=== PATIENT | female | born 1970 | race Caucasian/White ===

== ENCOUNTER 2017-03-31 11:30 | Emergency (ER) | payer OTHER ==
[2017-03-31 11:46] VITALS: BP 139/76
--- NOTE | 2017-03-31 12:24 | EDM.PDOC ---
ED HPI GENERAL MEDICAL PROBLEM - General Chief Complaint: Head Injury Stated Complaint: HEAD INJURY 5 DAYS AGO, VOMITING SINCE Time Seen by Provider: 03/31/17 12:05 Source of Information: Reports: Patient History Limitations: Reports: No Limitations - History of Present Illness INITIAL COMMENTS - FREE TEXT/NARRATIVE: Patient is a 47-year-old female who states on March 27 she tripped hitting the left side of her head on a wooden door jam. There was no loss consciousness but approximately 5-10 minutes later patient developed dizziness, nausea/vomiting, and headache. States she's been vomiting off and on over the past few days. Pain is isolated to the left side of her head. She developed pain to the midline portion of her cervical spine increased with palpation and movement. She does have a history of migraines and has taken Zofran and Maxalt this morning with little relief. She still feels dizzy and also feels mildly nauseated. She is on Xarelto for blood clot to the left leg. Additional history includes vitamin D deficiency, hypertension, and depression. Left Headache Pain Score (Numeric/FACES): 8 - Related Data Allergies Allergy/AdvReac Type Severity Reaction Status Date / Time amoxicillin trihydrate Allergy Hives Verified 03/31/17 11:46 [From Augmentin] cephalexin Allergy Itching Verified 03/31/17 11:46 Penicillins Allergy Hives Verified 03/31/17 11:46 potassium clavulanate Allergy Hives Verified 03/31/17 11:46 [From Augmentin] Sulfa (Sulfonamide Allergy Hives Verified 03/31/17 11:46 Antibiotics) Home Meds: Home Meds Albuterol [Proair HFA] 2 puff INH Q4H PRN 04/16/14 [History] Cyclobenzaprine [Flexeril] 10 mg PO TID PRN 04/16/14 [History] LORazepam [Ativan] 0.5 mg PO TID PRN 04/16/14 [History] Omeprazole 20 mg PO DAILY 04/16/14 [History] Ondansetron HCl [Ondansetron] 8 mg PO BID PRN 04/16/14 [History] cloNIDine HCl [Clonidine HCl] 1 tab PO BID 04/16/14 [History] Citalopram Hydrobromide [Celexa] 40 mg PO DAILY 12/14/14 [History] Fluticasone Propionate [Flonase] 2 spray ZAK DAILY PRN 12/14/14 [History] Loratadine/Pseudoephedrine [Claritin-D 24 Hour Tablet] 1 tab PO DAILY 12/14/14 [ History] Lactobacillus Acidophilus [Probiotic] 1 cap PO DAILY PRN 01/02/15 [History] Rizatriptan [Maxalt] 10 mg PO ASDIRECTED PRN 01/02/15 [History] Triamcinolone Acetonide [Triamcinolone Acetonide 0.1% Crm] 1 dose TOP BID [History] Rivaroxaban [Xarelto] 20 mg PO DAILY 04/21/15 [History] Folic Acid/Mv,Fe,Min [Centrum Multivitamin] 1 tab PO DAILY 05/07/15 [History] Albuterol Sulfate 1 dose INH Q4HR PRN 06/19/15 [History] Meclizine [Antivert] 12.5 mg PO TID PRN 06/19/15 [History] Metoprolol Tartrate 25 mg PO DAILY 06/19/15 [History] Misoprostol [Cytotec] 200 mcg PO ASDIRECTED 06/19/15 [History] traMADol HCl [Tramadol HCl] 50 mg PO TID PRN 06/19/15 [History] Cholecalciferol (Vitamin D3) [Vitamin D3] 2 tab PO DAILY 03/31/17 [History] Past Medical History HEENT History: Reports: Allergic Rhinitis Cardiovascular History: Reports: Hypertension Other Cardiovascular History: chest pain, fluttering sensation, irregular heart rate, leg swelling, DVT Respiratory History: Reports: COPD Other Respiratory History: cough, pharyngitis - Severe Snoring Gastrointestinal History: Reports: GERD Other Gastrointestinal History: nausea vomitting Genitourinary History: Reports: Urinary Incontinence, Other (See Below) Other Genitourinary History: UTI, pelvic pain 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: , Other (See Below) Other OB/BYN History: breast lump, menorrhagia, hot flashes, postcoital bleeding Musculoskeletal History: Reports: Osteoarthritis Other Musculoskeletal History: restless leg syndrome, ac joint bone spurs, R biceps tendonitis, R shoulder pain, R rotator cuff tear, knee tear, patellar relalingment syndrome Neurological History: Reports: Headaches, Chronic, Migraines, Neuropathy, Peripheral, Vertigo Other Neuro History: fatigue, insomnia Psychiatric History: Reports: Anxiety, Depression, PTSD Endocrine/Metabolic History: Reports: Obesity/BMI 30+ Hematologic History: Reports: Anticoagulation Therapy, Other (See Below) Other Hematologic History: hypovitaminosis vitamin D, post thromotic syndrome Dermatologic History: Reports: Seborrheic Dermatitis Other Dermatologic History: ecezma, varicose veins, folliculitis - Past Surgical History HEENT Surgical History: Reports: Myringotomy w Tube(s) Female Surgical History: Reports: Oophorectomy, Tubal Ligation Musculoskeletal Surgical History: Reports: Arthroscopic Procedure, Shoulder Surgery Social & Family History - Tobacco Use Smoking Status *Q: Never Smoker Used Tobacco, but Quit: No Second Hand Smoke Exposure: Yes - Caffeine Use Caffeine Use: Reports: Soda - Alcohol Use Days Per Week of Alcohol Use: 0 Number of Drinks Per Day: 0 Total Drinks Per Week: 0 - Recreational Drug Use Recreational Drug Use: No Drug Use in Last 12 Months: No - Living Situation & Occupation Living situation: Reports: , with Family Occupation: Unemployed ED ROS GENERAL - Review of Systems Review Of Systems: See Below Constitutional: Reports: Decreased Appetite. Denies: Fever, Chills HEENT: Denies: Ear Discharge, Eye Pain, Vision Change Respiratory: Denies: Shortness of Breath, Cough, Sputum, Hemoptysis Cardiovascular: Denies: Dyspnea on Exertion, Palpitations, PND GI/Abdominal: Reports: Nausea, Vomiting. Denies: Abdominal Pain : Reports: No Symptoms Musculoskeletal: Reports: Neck Pain Neurological: Reports: Headache. Denies: Confusion, Dizziness, Numbness, Seizure, Syncope, Tingling, Difficulty Walking, Weakness ED EXAM, HEAD INJURY - Physical Exam Exam: See Below Exam Limited By: No Limitations General Appearance: Alert, WD/WN, Mild Distress Head: Facial Tenderness (left forehead). No: Scalp Abrasions, Scalp Ecchymosis , Scalp Hematoma, Scalp Tenderness, Facial Ecchymosis, Facial Swelling, Sinus Tenderness Nexus Criteria: Posterior, Midline Cervical Tenderness. No: Evidence of Intoxication, Altered Level of Consciousness, Focal Neurological Deficit, Painful Distraction Injuries Eyes: Bilateral Eye: EOMI, Normal Inspection, Nystagmus (none found), PERRL Ears: Normal External Exam, Hearing Grossly Normal Nose: Normal Inspection, Normal Mucousa Throat/Mouth: Normal Inspection, Normal Oropharynx, Normal Voice, No Airway Compromise Neck: Full Range of Motion, Normal Alignment, Normal Inspection, Tender Midline Respiratory: No Respiratory Distress, Lungs Clear, Normal Breath Sounds, No Accessory Muscle Use, Chest Non-Tender Cardiovascular: Normal Peripheral Pulses, Regular Rate, Rhythm GI/Abdominal Exam: Normal Bowel Sounds, Soft, Non-Tender, No Organomegaly, No Distention Back Exam: Normal Inspection, Full Range of Motion. 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 Uvula midline, no facial drip, no slurred speech, no weakness to upper/lower extremities. No sensory/motor deficits. ) Skin: Normal Color, Warm/Dry Course - Vital Signs Last Recorded V/S: Last Vital Signs Temp 97.7 F 03/31/17 11:42 Pulse 68 03/31/17 11:42 Resp 16 03/31/17 11:42 BP 139/76 03/31/17 11:42 Pulse Ox 98 03/31/17 11:42 - Orders/Labs/Meds Meds: Medications Discontinued Medications Generic Name Dose Route Start Last Admin Trade Name Garry PRIliana Reason Stop Dose Admin Diphenhydramine HCl 50 mg 03/31/17 12:55 03/31/17 13:12 Benadryl IM 03/31/17 12:56 50 mg ONETIME ONE Administration Haloperidol Lactate 5 mg 03/31/17 12:55 03/31/17 13:13 Haldol IM 03/31/17 12:56 5 mg ONETIME ONE Administration Ketorolac Tromethamine 60 mg 03/31/17 14:44 03/31/17 14:48 Toradol IM 03/31/17 14:45 60 mg ONETIME STA Administration Ketorolac Tromethamine Confirm 03/31/17 14:50 03/31/17 15:43 Toradol Administered 03/31/17 14:51 Not Given Dose 60 mg .ROUTE .STK-MED ONE Ondansetron HCl 4 mg 03/31/17 12:55 03/31/17 13:11 Zofran Odt PO 03/31/17 12:56 4 mg ONETIME ONE Administration - Re-Assessments/Exams Free Text/Narrative Re-Assessment/Exam: Ordered CT of the head and neck without contrast. Patient drove from [facility] and is arranging a ride. Once these studies have been completed will administer medications to resolve ANGEL. 03/31/17 13:00 patient has arranged a ride. Ordered Haldol, Zofran, and Benadryl. Will hold off on administering Toradol until CT results are present. 03/31/17 13:51 CT the cervical spine and head revealed no acute abnormalities. 1411 Reassessment, headache decreasing 01/24. Ordered toradol 60m IM. She is ready for discharge after administration of this medication. Departure - Departure Time of Disposition: 14:25 Disposition: Home, Self-Care 01 Condition: Good Clinical Impression: Head contusion Qualifiers: Encounter type: initial encounter Contusion of head detail: unspecified part of head Qualified Code(s): S00.93XA - Contusion of unspecified part of head, initial encounter Migraine Qualifiers: Migraine type: unspecified Status migrainosus presence: with status migrainosus Intractability: not intractable Qualified Code(s): G43.901 - Migraine, unspecified, not intractable, with status migrainosus - Discharge Information Instructions: Head Injury, Adult, [id number], Facial or Scalp Contusion, Easy -to-Read, Concussion, Adult, [id number] Referrals: Cara Miguel SECURITY TESTER [Primary Care Provider] - Forms: ED Department Discharge, ED Return to Work/School Form Additional Instructions: As discussed CT the cervical spine and head did not reveal any acute abnormalities. No driving today since receiving a sedative medication. Follow- up with PCP as needed in the next week if symptoms have not drastically improved. Can take ibuprofen and Tylenol as needed for pain in alternating fashion. Apply ice to affected area as needed. Suggest going home and finding a dark room to sleep with no distractions. Return to ED for any new or worsening symptoms.
[2017-03-31] MEDS ORDERED: Haloperidol Lactate 5 MG/ML SDV IM ONE (12:55)
[2017-03-31] MEDS ORDERED: diphenhydrAMINE 50 MG/ML SDV IM ONE (12:55)
[2017-03-31] MEDS ORDERED: Ondansetron 4 MG Tab.DIS PO ONE (12:55)
--- NOTE | 2017-03-31 13:31 | CT ---
Head CT Technique: Multiple axial sections through the brain were obtained. Intravenous contrast was not utilized. Comparison: No previous intracranial imaging. Findings: Ventricles along with basal cisterns and sulci over the convexities are within normal limits for the patient's age. No abnormal parenchymal densities are seen. No evidence of intracranial hemorrhage. No midline shift or mass effect is seen. Bone window settings were reviewed which shows no discrete calvarial abnormality. Visualized sinuses are clear. Impression: 1. No acute intracranial abnormality is identified on noncontrast head CT examination. Diagnostic code #1
--- NOTE | 2017-03-31 13:35 | CT ---
CT cervical spine Technique: Multiple axial sections were obtained from above C1 inferiorly to the mid T2 level. Reconstructed sagittal and coronal images were reviewed. Comparison: No previous cervical spine imaging. Findings: Vertebral body heights and disc spaces are maintained. Minimal spondylolisthesis is noted at C3-C4 compatible with degenerative apophyseal change which is worse on the right side. Posterior osteophytes are seen at C3-C4. Slight degenerative spurring is noted on the right side at C3-C4. Moderate right-sided neural foraminal stenosis is also noted at C3-C4. Mastoid sinuses and middle ear cavities are clear. Posterior skull base is intact. Vertebral bodies and posterior arches are intact. No fracture is seen. Other than the neural foraminal stenosis at C3-C4 on the right side, other neural foramina are patent. No bony central canal stenosis is seen. Scattered degenerative apophyseal change is seen throughout the cervical spine most prominent on the right side. Impression: 1. Degenerative change as described above. 2. No acute abnormality is identified on CT study of the cervical spine. Diagnostic code #2
[2017-03-31] MEDS ORDERED: Ketorolac 60 MG/2 ML SDV IM STA (14:44)
[2017-03-31] MEDS ORDERED: Ketorolac 60 MG/2 ML SDV ONE (14:50)
== END 2017-03-31 15:00 | disposition home or self-care (01) ==
LOC: JD.ED 11:30
DX: S00.93XA Contusion of unspecified part of head, initial encounter (principal); G43.901 Migraine, unspecified, not intractable, with status migrainosus; I10 Essential (primary) hypertension; J44.9 Chronic obstructive pulmonary disease, unspecified; K21.9 Gastro-esophageal reflux disease without esophagitis; M19.90 Unspecified osteoarthritis, unspecified site; F41.9 Anxiety disorder, unspecified; F32.9 Major depressive disorder, single episode, unspecified; E66.9 Obesity, unspecified; Z68.41 Body mass index [BMI] 40.0-44.9, adult; Z87.440 Personal history of urinary (tract) infections; Z96.22 Myringotomy tube(s) status; Z98.890 Other specified postprocedural states; Z79.899 Other long term (current) drug therapy; Z88.0 Allergy status to penicillin; Z88.1 Allergy status to other antibiotic agents; Z88.2 Allergy status to sulfonamides; W01.190A Fall on same level from slipping, tripping and stumbling with subsequent striking against furniture, initial encounter
CPT/HCPCS: 70450; 72125; 96372; 99284; A9270; J1200; J1630; J1885

== ENCOUNTER 2018-11-22 05:58 | Inpatient (IN) | payer MEDICAID ==
[~2018-11-22 05:58] MED LIST: Lactated Ringers 1,000 ML IV SCH; Lidocaine 1%/Sod Bicarbonate in NS 8.4% 1 ML Syringe IDERM PRN; Sodium Chloride 0.9% 10 ML Syringe FLUSH PRN
[2018-11-22] MEDS ORDERED: oxyCODONE ER 10 MG TAB.ER PO SCH (06:00)
[2018-11-22] MEDS ORDERED: Acetaminophen 325 MG Tab PO SCH (06:00)
[2018-11-22] MEDS ORDERED: Pregabalin 25 MG Cap PO SCH (06:00)
[2018-11-22] MEDS ORDERED: Iodine/Sodium Iodide 2% Tincture 30 ML Bottle ONE (06:21)
[2018-11-22] MEDS ORDERED: ceFAZolin 1 GM Vial ONE (06:21)
[2018-11-22] MEDS ORDERED: Triamcinolone Acetonide 40 MG/ML 1 ML MDV ONE (06:21)
[2018-11-22] MEDS ORDERED: Vancomycin 1 GM SDV ONE (06:21)
[2018-11-22] MEDS ORDERED: Morphine 8 MG, EPINEPHrine 0.3 MG, Cefuroxime 750 MG, Ketorolac 30 MG, Sodium Chloride ... ONE ×5 (06:45)
[2018-11-22] MEDS ORDERED: Cyclobenzaprine 10 MG Tab PO PRN (06:45)
[2018-11-22] MEDS ORDERED: fentaNYL 100 MCG/2 ML SDV ONE (06:46)
[2018-11-22] MEDS ORDERED: Midazolam 1 MG/ML 2 ML SDV ONE (06:46)
[2018-11-22] MEDS ORDERED: Propofol 200 MG/20 ML SDV ONE ×2 (06:46→08:13)
[2018-11-22] MEDS ORDERED: Ketamine 500 mg/10 ML MDV ONE (06:47)
[2018-11-22] MEDS ORDERED: Bisacodyl 5 MG Tab PO PRN (06:51)
[2018-11-22] MEDS ORDERED: Lidocaine 1% 4 ML ONE (07:11)
[2018-11-22] MEDS ORDERED: Dexamethasone 4 MG/ML SDV ONE (07:16)
[2018-11-22] MEDS ORDERED: Ropivacaine 0.5% 5 MG/ML 30 ML SDV ONE (07:46)
[2018-11-22] MEDS ORDERED: EPINEPHrine 1 MG/ML SDV ONE (07:46)
[2018-11-22] MEDS ORDERED: fentaNYL 100 MCG/2 ML SDV IVPUSH PRN (07:48)
[2018-11-22] MEDS ORDERED: diphenhydrAMINE 50 MG/ML SDV IVPUSH PRN (07:48)
[2018-11-22] MEDS ORDERED: Ketorolac 30 MG/ML SDV IVPUSH ONE (07:54)
[2018-11-22] MEDS ORDERED: HYDROmorphone 0.5 MG/0.5 ML Syringe IVPUSH PRN (07:54)
[2018-11-22] MEDS ORDERED: Ondansetron 4 MG/2 ML SDV IVPUSH PRN ×2 (07:54→09:00)
[2018-11-22] MEDS: Bupivacaine 0.25% 30 ML SDV ONE ×2 (08:04→08:30)
[2018-11-22] MEDS ORDERED: Lactated Ringers 1,000 ML ONE ×2 (08:21→08:22)
--- NOTE | 2018-11-22 08:34 | PCM.PREANE ---
Preanesthetic Assessment - Anesthesia/Transfusion/Family Hx Anesthesia History: Prior Anesthesia Without Reaction Family History of Anesthesia Reaction: No Transfusion History: No Prior Transfusion(s) - Review of Systems General: No Symptoms Pulmonary: No Symptoms (Controlled Asthma, no use of rescure inhaler. ) Cardiovascular: No Symptoms (Hypertension) Gastrointestinal: Other (GERD, controlled with medication. ) Neurological: No Symptoms Other: Reports: None (DVT in 2015), Depression, Anxiety - Physical Assessment NPO Status Date: 11/21/18 NPO Status Time: 23:30 O2 Sat by Pulse Oximetry: 97 Respiratory Rate: 16 Vital Signs: Last Vital Signs Temp 36.3 C 11/22/18 06:05 Pulse 69 11/22/18 06:05 Resp 16 11/22/18 06:05 BP 119/66 11/22/18 06:05 Pulse Ox 97 11/22/18 06:05 Height: 1.7 m Weight: 118.388 kg ASA Class: 2 Mental Status: Alert & Oriented x3 Airway Class: Mallampati = 1 Dentition: Reports: Missing Tooth/Teeth Thyro-Mental Finger Breadths: 3 Mouth Opening Finger Breadths: 3 ROM/Head Extension: Full Lungs: Clear to Auscultation, Normal Respiratory Effort Cardiovascular: Regular Rate, Regular Rhythm - Lab Values: Laboratory Last Values MRSA (PCR) Negative 11/17/18 09:50 - Allergies Allergies/Adverse Reactions: Allergies Allergy/AdvReac Type Severity Reaction Status Date / Time amoxicillin trihydrate Allergy Hives Verified 11/19/18 12:29 [From Augmentin] cephalexin Allergy Itching Verified 11/19/18 12:29 Penicillins Allergy Hives Verified 11/19/18 12:29 potassium clavulanate Allergy Hives Verified 11/19/18 12:29 [From Augmentin] Sulfa (Sulfonamide Allergy Hives Verified 11/19/18 12:29 Antibiotics) venlafaxine [From Effexor] Allergy Other Verified 11/19/18 12:29 - Anesthesia Plan Pre-Op Medication Ordered: Anxiolytic - Acknowledgements Anesthesia Type Planned: Spinal Pt an Appropriate Candidate for the Planned Anesthesia: Yes Alternatives and Risks of Anesthesia Discussed w Pt/Guardian: Yes Pt/Guardian Understands and Agrees with Anesthesia Plan: Yes PreAnesthesia Questionnaire HEENT History: Reports: Allergic Rhinitis, Other (See Below) Other HEENT History: eustachian tube dysfunction, pharyngitis, sore throat Cardiovascular History: Reports: Blood Clots/VTE/DVT, High Cholesterol, Hypertension Other Cardiovascular History: chest pain, fluttering sensation, irregular heart rate, leg swelling, DVT Respiratory History: Reports: Asthma, Bronchitis, Recurrent, COPD Other Respiratory History: cough, pharyngitis - Severe Snoring Gastrointestinal History: Reports: Chronic Diarrhea, GERD Other Gastrointestinal History: nausea vomiting Genitourinary History: Reports: Urinary Incontinence, UTI, Recurrent, Other ( See Below) Other Genitourinary History: UTI, pelvic pain 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, , Other (See Below) Other OB/BYN History: breast lump, menorrhagia, hot flashes, postcoital bleeding Musculoskeletal History: Reports: Osteoarthritis Other Musculoskeletal History: restless leg syndrome, ac joint bone spurs, R biceps tendonitis, R shoulder pain, R rotator cuff tear, knee tear, patellar relalingment syndrome, lumbar pain and radiculopathy, right bicep tendonitis, degneration of right lateral meniscus, right plantar fasciitis Neurological History: Reports: Headaches, Chronic, Migraines, Neuropathy, Peripheral, Vertigo Other Neuro History: fatigue, insomnia, loss of equilbrium Psychiatric History: Reports: Anxiety, Depression, PTSD, Suicide Attempt Endocrine/Metabolic History: Reports: Obesity/BMI 30+, Vitamin D Deficiency Hematologic History: Reports: Anemia, Anticoagulation Therapy, B12 Deficiency, Other (See Below) Other Hematologic History: hypovitaminosis vitamin D, post thromotic syndrome, bone marrow edema Immunologic History: Reports: None Oncologic (Cancer) History: Reports: None Dermatologic History: Reports: Eczema, Seborrheic Dermatitis Other Dermatologic History: ecezma, varicose veins, folliculitis, dermatitis, sweating, thrombophlebitis - Infectious Disease History Infectious Disease History: Reports: Chicken Pox - Past Surgical History Head Surgeries/Procedures: Reports: None HEENT Surgical History: Reports: Myringotomy w Tube(s), Oral Surgery Other HEENT Surgeries/Procedures: oral surgery with teeth extraction, ear pressure equalization tube Cardiovascular Surgical History: Reports: None Respiratory Surgical History: Reports: None GI Surgical History: Reports: None Female Surgical History: Reports: Oophorectomy, Tubal Ligation Other Female Surgeries/Procedures: L) oophrectomy, ablation Endocrine Surgical History: Reports: None Neurological Surgical History: Reports: None Musculoskeletal Surgical History: Reports: Arthroscopic Procedure, Shoulder Surgery Other Musculoskeletal Surgeries/Procedures:: right knee arhtroscopy, bilateral shoulder arthroscopy Oncologic Surgical History: Reports: Bone Marrow Transplant - SUBSTANCE USE Smoking Status *Q: Never Smoker Recreational Drug Use History: No - HOME MEDS Home Medications: Home Meds LORazepam [Ativan] 1 mg PO BID PRN 04/16/14 [History] Omeprazole 20 mg PO DAILY 04/16/14 [History] cloNIDine HCl [Clonidine HCl] 1 tab PO BID 04/16/14 [History] Fluticasone Propionate [Flonase] 1 spray ZAK BID PRN 12/14/14 [History] Metoprolol Succinate [Toprol XL] 25 mg PO DAILY 05/31/17 [History] Albuterol [Proventil Neb Soln] 1 dose NEB Q4H PRN 11/19/18 [History] Budesonide [Pulmicort] 1 dose INH BID PRN 11/19/18 [History] Cholecalciferol (Vitamin D3) [Vitamin D3] 4,000 unit PO DAILY 11/19/18 [History] Citalopram [Citalopram HBr] 20 mg PO DAILY 11/19/18 [History] DULoxetine HCl [Duloxetine HCl] 60 mg PO DAILY 11/19/18 [History] Prazosin HCl [Prazosin] 1 mg PO TID 11/19/18 [History] Prazosin HCl [Prazosin] 2 mg PO BEDTIME 11/19/18 [History] SUMAtriptan [Imitrex] 50 mg PO ASDIRECTED PRN 11/19/18 [History] Topiramate 50 mg PO BID 11/19/18 [History] Triamcinolone Acetonide [Triamcinolone Acetonide 0.1% Crm] 1 dose TOP BID [History] lamoTRIgine [Lamotrigine] 150 mg PO DAILY 11/19/18 [History] Acetaminophen/oxyCODONE [Percocet 325-5 MG] 1 - 2 tab PO Q4H PRN #60 tablet 04/04 [Rx] Cyclobenzaprine [Flexeril] 10 mg PO TID PRN #40 tablet 11/22/18 [Rx] Docusate Sodium [Colace] 100 mg PO BID cap 11/22/18 [Rx] Rivaroxaban [Xarelto] 10 mg PO DAILY #30 tablet 11/22/18 [Rx] - CURRENT (IN HOUSE) MEDS Current Meds: Current Medications Acetaminophen (Tylenol) 975 mg PO ONETIME [facility] Stop: 11/22/18 18:00 Last Admin: 11/22/18 06:36 Dose: 975 mg Bisacodyl (Dulcolax) 5 mg PO DAILY PRN PRN Reason: Constipation Cyclobenzaprine HCl (Flexeril) 10 mg PO TID PRN PRN Reason: Spasms Diphenhydramine HCl (Benadryl) 25 mg IVPUSH Q6H PRN PRN Reason: Pruritis Stop: 11/22/18 14:00 Docusate Sodium (Colace) 100 mg PO BID [place] Famotidine (Pepcid) 20 mg PO Q12H [place] Fentanyl (Sublimaze) 50 mcg IVPUSH Q5M PRN PRN Reason: Pain Stop: 11/22/18 12:00 Hydromorphone HCl (Dilaudid) 0.5 mg IVPUSH Q15M PRN PRN Reason: severe pain Stop: 11/22/18 12:00 Lactated Ringer's (Ringers, Lactated) 1,000 mls @ 125 mls/hr IV ASDIRECTED [facility] Stop: 11/22/18 23:00 Last Admin: 11/22/18 06:20 Dose: 125 mls/hr Cefazolin Sodium/Dextrose 2 gm (/ Premix) 50 mls @ 100 mls/hr IV Q8H [facility] Stop: 11/23/18 07:29 Ketorolac Tromethamine (Toradol) 15 mg IVPUSH Q6H PRN PRN Reason: Pain Lidocaine/Sodium Bicarbonate (Buffered Lidocaine 1% In Ns 8.4%) 0.25 ml IDERM ONETIME PRN PRN Reason: Prior to IV Start Stop: 11/22/18 18:00 Last Admin: 11/22/18 06:20 Dose: 0.25 ml Magnesium Hydroxide (Milk Of Magnesia) 30 ml PO BID PRN PRN Reason: Constipation Morphine Sulfate (Morphine) 2 mg IVPUSH Q2H PRN PRN Reason: Breakthrough Pain Naloxone HCl (Narcan) 0.1 mg IVPUSH Q5M PRN PRN Reason: Oversedation Ondansetron HCl (Zofran) 4 mg IVPUSH Q6H PRN PRN Reason: Nausea/Vomiting Ondansetron HCl (Zofran) 4 mg IVPUSH ONETIME PRN PRN Reason: Nausea/Vomiting Stop: 11/22/18 14:00 Oxycodone HCl (Oxycontin) 10 mg PO ONETIME [place] Stop: 11/22/18 18:00 Last Admin: 11/22/18 06:35 Dose: 10 mg Oxycodone/Acetaminophen (Percocet 325-5 Mg) 1 - 2 tab PO Q4H PRN PRN Reason: Pain Pregabalin (Lyrica) 50 mg PO ONETIME [place] Stop: 11/22/18 18:00 Last Admin: 11/22/18 06:35 Dose: 50 mg Senna (Senna) 8.6 mg PO BID PRN PRN Reason: Constipation Sodium Chloride (Saline Flush) 10 ml FLUSH ASDIRECTED PRN PRN Reason: Keep Vein Open Stop: 11/22/18 18:00 Discontinued Medications Bupivacaine HCl (Marcaine 0.25%) Confirm Administered Dose 30 ml .ROUTE .STK- MED ONE Stop: 11/22/18 06:22 Cefazolin Sodium (Ancef) Confirm Administered Dose 2 gm .ROUTE .STK-MED ONE Stop: 11/22/18 06:22 Morphine Sulfate 8 mg/Epinephrine HCl 0.3 mg/Cefuroxime Sodium 750 mg/Ketorolac Tromethamine 30 mg/Sodium Chloride 27.9 ml 0 mg .XX ONETIME ONE Stop: 11/22/18 06:46 Dexamethasone (Dexamethasone) Confirm Administered Dose 8 mg .ROUTE .STK-MED ONE Stop: 11/22/18 07:17 Epinephrine HCl (Adrenalin) Confirm Administered Dose 1 mg .ROUTE .STK-MED ONE Stop: 11/22/18 07:47 Fentanyl (Sublimaze) Confirm Administered Dose 100 mcg .ROUTE .STK-MED ONE Stop: 11/22/18 06:47 Lidocaine HCl (Xylocaine-Mpf 1%) Confirm Administered Dose 4 mls @ as directed .ROUTE .STK-MED ONE Stop: 11/22/18 07:12 Lactated Ringer's (Ringers, Lactated) Confirm Administered Dose 1,000 mls @ as directed .ROUTE .STK-MED ONE Stop: 11/22/18 08:22 Lactated Ringer's (Ringers, Lactated) Confirm Administered Dose 1,000 mls @ as directed .ROUTE .STK-MED ONE Stop: 11/22/18 08:23 Iodine (Iodine 2% Mild Tincture) Confirm Administered Dose 30 ml .ROUTE .STK- MED ONE Stop: 11/22/18 06:22 Ketamine HCl (Ketalar) Confirm Administered Dose 500 mg .ROUTE .STK-MED ONE Stop: 11/22/18 06:48 Ketorolac Tromethamine (Toradol) 30 mg IVPUSH ONETIME ONE Stop: 11/22/18 07:55 Midazolam HCl (Versed 1 Mg/Ml) Confirm Administered Dose 2 mg .ROUTE .STK-MED ONE Stop: 11/22/18 06:47 Propofol (Diprivan 20 Ml) Confirm Administered Dose 600 mg .ROUTE .STK-MED ONE Stop: 11/22/18 06:47 Propofol (Diprivan 20 Ml) Confirm Administered Dose 200 mg .ROUTE .STK-MED ONE Stop: 11/22/18 08:14 Ropivacaine (Naropin 0.5%) Confirm Administered Dose 30 ml .ROUTE .STK-MED ONE Stop: 11/22/18 07:47 Tranexamic Acid (Cyklokapron) Confirm Administered Dose 1,000 mg .ROUTE .STK- MED ONE Stop: 11/22/18 06:22 Triamcinolone Acetonide (Kenalog-40) Confirm Administered Dose 80 mg .ROUTE .STK -MED ONE Stop: 11/22/18 06:22 Vancomycin HCl (Vancomycin) Confirm Administered Dose 1 gm .ROUTE .STK-MED ONE Stop: 11/22/18 06:22
[2018-11-22] MEDS ORDERED: Budesonide 0.25 MG/2 ML Neb Susp INH PRN (08:37)
[2018-11-22] MEDS ORDERED: Albuterol 0.083% 2.5 MG/3 ML Neb Soln NEB PRN (08:37)
[2018-11-22] MEDS ORDERED: SUMAtriptan 50 MG Tab PO PRN (08:37)
[2018-11-22] MEDS ORDERED: LORazepam 1 MG Tab PO PRN (08:37)
[2018-11-22] MEDS ORDERED: Fluticasone Propionate Nasal Spray 16 GM Bottle NAS PRN (08:37)
--- NOTE | 2018-11-22 08:46 | PCM.POSTAN ---
POST ANESTHESIA ASSESSMENT - MENTAL STATUS Mental Status: Alert, Oriented - VITAL SIGNS Pulse Rate: 78 SaO2: 95 Resp Rate: 15 Blood Pressure: 117/63 Temperature: 36.6 C - RESPIRATORY Respiratory Status: Respiratory Rate WNL, Airway Patent, O2 Saturation Stable - CARDIOVASCULAR CV Status: Pulse Rate WNL, Blood Pressure Stable - GASTROINTESTINAL GI Status: No Symptoms - PAIN Pain Score: 0 - POST OP HYDRATION Hydration Status: Adequate & Stable
--- NOTE | 2018-11-22 08:52 | PCM.CONS ---
H&P History of Present Illness - General Date of Service: 11/22/18 Admit Problem/Dx: Admission Diagnosis/Problem Admission Diagnosis/Problem Osteoarthritis of knee Source of Information: Patient, Old Records, Provider, RN, RN Notes Reviewed History Limitations: Reports: No Limitations - History of Present Illness Initial Comments - Free Text/Narative: Kiel Chen is a 48 yo female patient of Dr. Fuentes who is post-operative day 0 of Right TKA with left knee steroid injection. Hospital medicine was consulted for post-operative medical care. At this time she is resting comfortably in bed. Pain is controlled. She denies any chest pain, shortness of breath, palpitations, nausea, or vomiting. She carries a history of: HTN, Headaches, Anxiety, GERD, HLD, Irregular HR, Edema, COPD, Recurrent Bronchitis, Urinary incontinence, recurrent UTIs, menorrhagia, osteoarthritis,0RLS, Peripheral neuropathy, Chronic diarrhea, PTSD, depression, Vitamin D deficiency, B12 deficiency, Anemia, eczema, DVT in 2014, Allergic rhinitis, Suicide attempt, varicose venins, Asthma. She was never a smoker. She is a full code. Her primary care provider is Cara Miguel NP. Right Knee Pain Score (Numeric/FACES): 8 - Related Data Allergies/Adverse Reactions: Allergies Allergy/AdvReac Type Severity Reaction Status Date / Time amoxicillin trihydrate Allergy Hives Verified 11/19/18 12:29 [From Augmentin] cephalexin Allergy Itching Verified 11/19/18 12:29 Penicillins Allergy Hives Verified 11/19/18 12:29 potassium clavulanate Allergy Hives Verified 11/19/18 12:29 [From Augmentin] Sulfa (Sulfonamide Allergy Hives Verified 11/19/18 12:29 Antibiotics) venlafaxine [From Effexor] Allergy Other Verified 11/19/18 12:29 Home Medications: Home Meds LORazepam [Ativan] 1 mg PO BID PRN 04/16/14 [History] Omeprazole 20 mg PO DAILY 04/16/14 [History] cloNIDine HCl [Clonidine HCl] 1 tab PO BID 04/16/14 [History] Fluticasone Propionate [Flonase] 1 spray ZAK BID PRN 12/14/14 [History] Metoprolol Succinate [Toprol XL] 25 mg PO DAILY 05/31/17 [History] Albuterol [Proventil Neb Soln] 1 dose NEB Q4H PRN 11/19/18 [History] Budesonide [Pulmicort] 1 dose INH BID PRN 11/19/18 [History] Cholecalciferol (Vitamin D3) [Vitamin D3] 6,000 unit PO DAILY 11/19/18 [History] Citalopram [Citalopram HBr] 20 mg PO DAILY 11/19/18 [History] DULoxetine HCl [Duloxetine HCl] 60 mg PO BEDTIME 11/19/18 [History] Prazosin HCl [Prazosin] 1 mg PO TID 11/19/18 [History] Prazosin HCl [Prazosin] 2 mg PO BEDTIME 11/19/18 [History] SUMAtriptan [Imitrex] 50 mg PO ASDIRECTED PRN 11/19/18 [History] Topiramate 50 mg PO BID 11/19/18 [History] Triamcinolone Acetonide [Triamcinolone Acetonide 0.1% Crm] 1 dose TOP BID PRN [History] lamoTRIgine [Lamotrigine] 150 mg PO DAILY 11/19/18 [History] Acetaminophen/oxyCODONE [Percocet 325-5 MG] 1 - 2 tab PO Q4H PRN #60 tablet 04/04 [Rx] Aspirin 81 mg PO DAILY 11/22/18 [History] Cyclobenzaprine [Flexeril] 10 mg PO TID PRN #40 tablet 11/22/18 [Rx] DULoxetine [Cymbalta] 30 mg PO BEDTIME 11/22/18 [History] Docusate Sodium [Colace] 100 mg PO BID cap 11/22/18 [Rx] Past Medical History HEENT History: Reports: Allergic Rhinitis, Other (See Below) Other HEENT History: eustachian tube dysfunction, pharyngitis, sore throat Cardiovascular History: Reports: Blood Clots/VTE/DVT, High Cholesterol, Hypertension Other Cardiovascular History: chest pain, fluttering sensation, irregular heart rate, leg swelling, DVT Respiratory History: Reports: Asthma, Bronchitis, Recurrent, COPD Other Respiratory History: cough, pharyngitis - Severe Snoring Gastrointestinal History: Reports: Chronic Diarrhea, GERD Other Gastrointestinal History: nausea vomiting Genitourinary History: Reports: Urinary Incontinence, UTI, Recurrent, Other ( See Below) Other Genitourinary History: UTI, pelvic pain 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: Endometrial Ablation, , Other (See Below) Other OB/BYN History: breast lump, menorrhagia, hot flashes, postcoital bleeding Musculoskeletal History: Reports: Osteoarthritis Other Musculoskeletal History: restless leg syndrome, ac joint bone spurs, R biceps tendonitis, R shoulder pain, R rotator cuff tear, knee tear, patellar relalingment syndrome, lumbar pain and radiculopathy, right bicep tendonitis, degneration of right lateral meniscus, right plantar fasciitis Neurological History: Reports: Headaches, Chronic, Migraines, Neuropathy, Peripheral, Vertigo Other Neuro History: fatigue, insomnia, loss of equilbrium Psychiatric History: Reports: Anxiety, Depression, PTSD, Suicide Attempt Endocrine/Metabolic History: Reports: Obesity/BMI 30+, Vitamin D Deficiency Hematologic History: Reports: Anemia, Anticoagulation Therapy, B12 Deficiency, Other (See Below) Other Hematologic History: hypovitaminosis vitamin D, post thromotic syndrome, bone marrow edema Immunologic History: Reports: None Oncologic (Cancer) History: Reports: None Dermatologic History: Reports: Eczema, Seborrheic Dermatitis Other Dermatologic History: ecezma, varicose veins, folliculitis, dermatitis, sweating, thrombophlebitis - Infectious Disease History Infectious Disease History: Reports: Chicken Pox - Past Surgical History Head Surgeries/Procedures: Reports: None HEENT Surgical History: Reports: Myringotomy w Tube(s), Oral Surgery Other HEENT Surgeries/Procedures: oral surgery with teeth extraction, ear pressure equalization tube Cardiovascular Surgical History: Reports: None Respiratory Surgical History: Reports: None GI Surgical History: Reports: None Female Surgical History: Reports: Oophorectomy, Tubal Ligation Other Female Surgeries/Procedures: L) oophrectomy, ablation Endocrine Surgical History: Reports: None Neurological Surgical History: Reports: None Musculoskeletal Surgical History: Reports: Arthroscopic Procedure, Shoulder Surgery Other Musculoskeletal Surgeries/Procedures:: right knee arhtroscopy, bilateral shoulder arthroscopy Oncologic Surgical History: Reports: Bone Marrow Transplant Social & Family History - Family History Family Medical History: Noncontributory - Tobacco Use Smoking Status *Q: Never Smoker - Caffeine Use Caffeine Use: Reports: Soda - Recreational Drug Use Recreational Drug Use: No - Living Situation & Occupation Living situation: Reports: , with Family Occupation: Unemployed H&P Review of Systems - Review of Systems: Review Of Systems: See Below General: Reports: No Symptoms. Denies: Fever, Chills, Weakness HEENT: Reports: No Symptoms. Denies: Headaches, Sore Throat Pulmonary: Reports: No Symptoms. Denies: Shortness of Breath, Wheezing, Pleuritic Chest Pain, Cough, Sputum Cardiovascular: Reports: No Symptoms. Denies: Chest Pain, Palpitations, Dyspnea on Exertion Gastrointestinal: Reports: No Symptoms. Denies: Abdominal Pain, Constipation, Diarrhea, Nausea, Vomiting Genitourinary: Reports: No Symptoms. Denies: Pain Musculoskeletal: Reports: Leg Pain Skin: Reports: No Symptoms. Denies: Cyanosis Psychiatric: Reports: No Symptoms. Denies: Confusion Neurological: Reports: No Symptoms Hematologic/Lymphatic: Reports: No Symptoms Immunologic: Reports: No Symptoms Exam - Exam Exam: See Below - Vital Signs Vital Signs: Last Vital Signs Temp 97.4 F 11/22/18 06:05 Pulse 69 11/22/18 06:05 Resp 16 11/22/18 08:34 BP 119/66 11/22/18 06:05 Pulse Ox 97 11/22/18 08:34 Weight: 261 lb - Exam Quality Assessment: DVT Prophylaxis General: Alert, Oriented, Cooperative. No: Mild Distress HEENT: Conjunctiva Clear, EACs Clear, EOMI, Hearing Intact, Mucosa Moist & [place] , Nares Patent, Posterior Pharynx Clear, PERRLA Neck: Supple, Trachea Midline Lungs: Clear to Auscultation, Normal Respiratory Effort Cardiovascular: Regular Rate, Regular Rhythm GI/Abdominal Exam: Normal Bowel Sounds, Soft, Non-Tender, No Distention, No Abnormal Bruit (Female) Exam: Deferred Rectal (Female) Exam: Deferred Back Exam: Normal Inspection, Full Range of Motion Extremities: No Pedal Edema, Normal Capillary Refill, Leg Pain, Limited Range of Motion, Other (Bandage in place on right leg. Bandage is dry and intact. Cooling pack in place. ) Peripheral Pulses: 2+: Radial (L), Radial (R), Dorsalis Pedis (L), Dorsalis Pedis (R) Skin: Warm, Dry, Intact Neurological: Cranial Nerves Intact (grossly ) Neuro Extensive - Mental Status: Alert, Oriented x3, Normal Mood/Affect Consult PN Assessment/Plan POD#: 0 Procedures: Procedures AIRWAY INHALATION TREATMENT (07/01/16) ANTITHROMBIN III ACTIVITY (01/21/15) ASSAY OF CK (CPK) (04/27/15) ASSAY OF FREE THYROXINE (05/12/18) ASSAY OF GONADOTROPIN (FSH) (02/23/17) ASSAY OF GONADOTROPIN (LH) (02/23/17) ASSAY OF HOMOCYSTINE (01/21/15) ASSAY OF IRON (05/14/15) ASSAY OF MAGNESIUM (05/18/14) ASSAY OF MYOGLOBIN (04/27/15) ASSAY OF NATRIURETIC PEPTIDE (07/11/14) ASSAY OF PREALBUMIN (11/17/18) ASSAY OF SERUM POTASSIUM (01/31/16) ASSAY OF TRANSFERRIN (05/14/15) ASSAY OF TROPONIN QUANT (04/21/15) ASSAY THYROID STIM HORMONE (05/12/18) C-REACTIVE PROTEIN (03/29/15) CHEST X-RAY 1 VIEW FRONTAL (07/11/14) CHEST X-RAY 2VW FRONTAL&LATL (06/25/16) CHORIONIC GONADOTROPIN ASSAY (03/21/15) CHORIONIC GONADOTROPIN TEST (02/23/17) CLOT INHIBIT PROT C ACTIVITY (01/21/15) CLOT INHIBIT PROT S FREE (01/21/15) COMP SCREEN MAMMOGRAM ADD-ON (12/31/15) COMPLETE CBC AUTOMATED (05/14/15) COMPLETE CBC W/AUTO DIFF WBC (11/17/18) COMPREHEN METABOLIC PANEL (11/17/18) COMPUTER DX MAMMOGRAM ADD-ON (12/25/14) CREATINE MB FRACTION (04/21/15) CT ABD & PELV W/CONTRAST (05/31/17) CT ANGIOGRAPHY CHEST (07/11/14) CT HEAD/BRAIN W/O DYE (02/18/18) CT NECK SPINE W/O DYE (03/31/17) CULTURE OTHR SPECIMN AEROBIC (08/03/18) ECG MONIT/REPRT UP TO 48 HRS (07/17/14) ECG MONIT/REPRT UP TO 48 HRS (07/17/14) ELECTROCARDIOGRAM TRACING (04/21/15) EMERGENCY DEPT VISIT (11/26/17) EMERGENCY DEPT VISIT (05/31/17) EMERGENCY DEPT VISIT (07/06/16) EMERGENCY DEPT VISIT (07/11/15) EMERGENCY DEPT VISIT (05/07/15) EMERGENCY DEPT VISIT (04/21/15) EMERGENCY DEPT VISIT (03/29/15) EMERGENCY DEPT VISIT (03/04/15) EMERGENCY DEPT VISIT (07/11/14) EMERGENCY DEPT VISIT (05/14/14) EVALUATE PT USE OF INHALER (07/01/16) EXTREMITY STUDY (04/18/16) EXTREMITY STUDY (03/27/15) EXTREMITY STUDY (03/04/15) F2 GENE (01/21/15) F5 GENE (01/21/15) FIBRIN DEGRADATION QUANT (04/21/15) GLYCOSYLATED HEMOGLOBIN TEST (01/10/16) HYDRATE IV INFUSION ADD-ON (11/26/17) HYDRATION IV INFUSION INIT (07/11/14) HYSTEROSCOPY BIOPSY (06/20/15) INSERT BLADDER CATHETER (12/14/14) KNEE ARTHROSCOPY/SURGERY (07/19/15) KNEE ARTHROSCOPY/SURGERY (07/19/15) LAPAROSCOPY EXCISE LESIONS (06/20/15) LIPID PANEL (11/05/17) METABOLIC PANEL TOTAL CA (04/27/15) MICROBE SUSCEPTIBLE NIURKA (04/11/16) MR-STAPH DNA AMP PROBE (06/18/16) MRI JNT OF LWR EXTRE W/O DYE (05/09/16) MRI JOINT UPR EXTREM W/O DYE (06/17/16) PROTHROMBIN TIME (11/17/18) PT EVAL LOW COMPLEX 20 MIN (05/15/17) REPAIR OF BICEPS TENDON (07/01/16) REPAIR ROTATOR CUFF CHRONIC (07/01/16) ROUTINE VENIPUNCTURE (05/31/17) SHOULDER ARTHROSCOPY/SURGERY (07/01/16) SHOULDER ARTHROSCOPY/SURGERY (07/01/16) SHOULDER ARTHROSCOPY/SURGERY (07/01/16) SHOULDER ARTHROSCOPY/SURGERY (01/02/15) THER/PROPH/DIAG INJ IV PUSH (11/26/17) THER/PROPH/DIAG INJ SC/IM (11/26/17) THERAPEUTIC EXERCISES (06/03/17) THROMBOPLASTIN TIME PARTIAL (11/17/18) TISSUE EXAM BY PATHOLOGIST (06/20/15) TRANSVAGINAL US NON-OB (03/10/17) TX/PRO/DX INJ NEW DRUG ADDON (11/26/17) TX/PRO/DX INJ SAME DRUG COACH (12/14/14) ULTRASOUND BREAST COMPLETE (12/29/14) ULTRASOUND THERAPY (06/03/17) UR ALBUMIN SEMIQUANTITATIVE (01/10/16) URINALYSIS AUTO W/SCOPE (03/29/15) URINE BACTERIA CULTURE (04/11/16) URINE CULTURE/COLONY COUNT (06/25/16) URINE TEST (07/19/15) US EXAM PELVIC COMPLETE (12/14/14) VITAMIN B-12 (11/05/17) VITAMIN D 25 HYDROXY (11/05/17) X-RAY EXAM CHEST 2 VIEWS (11/17/18) X-RAY EXAM HIP UNI 2-3 VIEWS (10/14/18) X-RAY EXAM KNEE 4 OR MORE (10/14/18) X-RAY EXAM L-S SPINE 2/3 VWS (02/03/18) X-RAY EXAM OF ANKLE (01/05/17) X-RAY EXAM OF FOOT (11/04/17) X-RAY EXAM OF KNEE 1 OR 2 (02/25/18) X-RAY EXAM OF KNEE 3 (05/23/16) X-RAY EXAM OF LOWER LEG (07/11/15) X-RAY EXAM OF SHOULDER (04/16/16) X-RAY EXAM OF SHOULDER (12/29/13) X-RAY EXAM OF SKULL (06/17/16) X-RAY EXAM OF WRIST (03/19/17) (1) S/P total knee arthroplasty SNOMED Code(s): 2259628276215, 366221260, 4771758097651 Code(s): Z96.659 - PRESENCE OF UNSPECIFIED ARTIFICIAL KNEE JOINT Priority: High Current Visit: Yes Qualifiers: Laterality: right Qualified Code(s): Z96.651 - Presence of right artificial knee joint (2) Osteoarthritis SNOMED Code(s): 194022979 Code(s): M19.90 - UNSPECIFIED OSTEOARTHRITIS, UNSPECIFIED SITE Priority: High Current Visit: Yes Qualifiers: Osteoarthritis location: knee Osteoarthritis type: primary Laterality: bilateral Qualified Code(s): M17.0 - Bilateral primary osteoarthritis of knee (3) History of deep venous thrombosis or pulmonary embolus SNOMED Code(s): 957075270 Code(s): AXD4650 - Priority: Medium Current Visit: No (4) Allergic rhinitis SNOMED Code(s): 40929167 Code(s): J30.9 - ALLERGIC RHINITIS, UNSPECIFIED Priority: Low Current Visit: No Qualifiers: Allergic rhinitis trigger: unspecified Allergic rhinitis seasonality: seasonal Qualified Code(s): J30.2 - Other seasonal allergic rhinitis (5) HLD (hyperlipidemia) SNOMED Code(s): 17334731 Code(s): E78.5 - HYPERLIPIDEMIA, UNSPECIFIED Priority: Low Current Visit : No Qualifiers: Hyperlipidemia type: unspecified Qualified Code(s): E78.5 - Hyperlipidemia , unspecified (6) HTN (hypertension) SNOMED Code(s): 65533152 Code(s): I10 - ESSENTIAL (PRIMARY) HYPERTENSION Priority: Medium Current Visit: No Qualifiers: Hypertension type: unspecified Qualified Code(s): I10 - Essential (primary ) hypertension (7) Asthma SNOMED Code(s): 743498556 Code(s): J45.909 - UNSPECIFIED ASTHMA, UNCOMPLICATED Priority: Medium Current Visit: No Qualifiers: Asthma severity: unspecified severity Asthma persistence: unspecified Asthma complication type: unspecified Qualified Code(s): J45.909 - Unspecified asthma, uncomplicated (8) COPD (chronic obstructive pulmonary disease) SNOMED Code(s): 07451698 Code(s): J44.9 - CHRONIC OBSTRUCTIVE PULMONARY DISEASE, UNSPECIFIED Priority: Medium Current Visit: No Qualifiers: COPD type: unspecified COPD Qualified Code(s): J44.9 - Chronic obstructive pulmonary disease, unspecified (9) GERD (gastroesophageal reflux disease) SNOMED Code(s): 793610330 Code(s): K21.9 - GASTRO-ESOPHAGEAL REFLUX DISEASE WITHOUT ESOPHAGITIS Priority: Low Current Visit: No Qualifiers: Esophagitis presence: esophagitis presence not specified Qualified Code(s) : K21.9 - Gastro-esophageal reflux disease without esophagitis (10) Chronic diarrhea SNOMED Code(s): 478892893 Code(s): K52.9 - NONINFECTIVE GASTROENTERITIS AND COLITIS, UNSPECIFIED Priority: Low Current Visit: No (11) Urinary incontinence SNOMED Code(s): 600197369 Code(s): R32 - UNSPECIFIED URINARY INCONTINENCE Priority: Low Current Visit: No Qualifiers: Urinary Incontinence type: unspecified incontinence Qualified Code(s): R32 - Unspecified urinary incontinence (12) RLS (restless legs syndrome) SNOMED Code(s): 41628488 Code(s): G25.81 - RESTLESS LEGS SYNDROME Priority: Low Current Visit: No (13) Chronic headache SNOMED Code(s): 682702204 Code(s): R51 - HEADACHE Priority: Low Current Visit: No Qualifiers: Headache type: unspecified Intractability: intractable Qualified Code(s) : R51 - Headache (14) Peripheral neuropathy SNOMED Code(s): 252233995 Code(s): G62.9 - POLYNEUROPATHY, UNSPECIFIED Priority: Medium Current Visit: No Qualifiers: Peripheral neuropathy type: polyneuropathy, unspecified Qualified Code(s): G62.9 - Polyneuropathy, unspecified (15) PTSD (post-traumatic stress disorder) SNOMED Code(s): 17019334 Code(s): F43.10 - POST-TRAUMATIC STRESS DISORDER, UNSPECIFIED Priority: Medium Current Visit: No (16) Anxiety SNOMED Code(s): 78112753 Code(s): F41.9 - ANXIETY DISORDER, UNSPECIFIED Priority: Low Current Visit: No (17) Eczema SNOMED Code(s): 03964700 Code(s): L30.9 - DERMATITIS, UNSPECIFIED Priority: Low Current Visit: No Qualifiers: Eczema type: unspecified Qualified Code(s): L30.9 - Dermatitis, unspecified (18) History of suicide attempt SNOMED Code(s): 495559939, 624114391 Code(s): Z91.5 - PERSONAL HISTORY OF SELF-HARM Priority: Low Current Visit: No (19) Anemia SNOMED Code(s): 054759329 Code(s): D64.9 - ANEMIA, UNSPECIFIED Priority: Medium Current Visit: No Qualifiers: Anemia type: unspecified type Qualified Code(s): D64.9 - Anemia, unspecified (20) Depression SNOMED Code(s): 41867721 Code(s): F32.9 - MAJOR DEPRESSIVE DISORDER, SINGLE EPISODE, UNSPECIFIED Priority: Low Current Visit: No Qualifiers: Depression Type: other depression Qualified Code(s): F32.89 - Other specified depressive episodes Problem List Initiated/Reviewed/Updated: Yes Plan: I/P: Acute: S/P right total knee arthroplasty - post-operative day 0 -DVT prophylaxis and pain management per primary care team -PT/OT -IS/RT -Monitor oxygen saturation -Titrate oxygen as needed -Home medications reviewed -Vital signs stable -Monitor labs -Pre-operative Hgb was 12.3 -Pre-operative GFR was 59 Osteoarthritis of bilateral knees -Pain management per primary care team S/P cortisone injection of left knee -Management per primary team Chronic: HTN Headaches Anxiety GERD HLD Irregular HR Edema COPD Recurrent Bronchitis Urinary incontinence Recurrent UTIs Menorrhagia Osteoarthritis, RLS Peripheral neuropathy Chronic diarrhea PTSD Depression Vitamin D deficiency B12 deficiency Anemia Eczema DVT in 2014 Allergic rhinitis Hx/o Suicide attempt Varicose venins Asthma. Plan: CM for discharge planning GI prophylaxis Home medications as indicated Other orders as listed above Routine AM labs She is a full code. Her PCP is Cara Miguel NP Thank you for allowing us to participate in the care of this patient!! Requesting Provider: Dr. Fuentes Date Consult Requested: 11/22/18 Reason for Consult: Post-operative medical management Patient History Reviewed: Yes Time Spent (in minutes): 40
[2018-11-22] MEDS ORDERED: Morphine 2 MG/ML Syringe IVPUSH PRN (09:00)
[2018-11-22] MEDS ORDERED: Sennosides 8.6 MG Tab PO PRN (09:00)
[2018-11-22] MEDS ORDERED: Naloxone 0.4 MG/ML SDV IVPUSH PRN (09:00)
[2018-11-22] MEDS ORDERED: Triamcinolone Acetonide 0.1% Crm 15 GM Tube TOP SCH (09:00)
--- NOTE | 2018-11-22 09:21 | PCM.SN ---
- Free Text/Narrative Note: Right selective femoral nerve block at the adductor canal for post-procedure pain control Time Out: 900 Start: 900 End: 909 Chart reviewed. Consent signed. Questions answered. Appropriate monitors applied. Time out performed. Right mid-shaft femur evaluated with ultrasound. Scanning medially femur, I was able to identify the femoral artery in the adductor canal. The saphenous nerve was lateral to the artery. The skin was prepped lateral to the ultrasound probe with chlorahexadine. The 21ga 4 insulated block needle was inserted under direct ultrasound guidance into the adductor canal. 20mL of 0.5% ropivacaine with 1:200,000 epinephrine was injected cirmcumferentially about the nerve with intermittent negative aspiration every 5mL. Patient tolerated the procedure well. See pictures on progress note and vital signs on nurses notes. Block completed postoperatively. Leia Sanchez EVP MANAGING DIRECTOR
[2018-11-22] MEDS ORDERED: Magnesium Hydroxide 400 MG/5 ML Susp 30 ML Cup PO PRN (09:30)
--- NOTE | 2018-11-22 09:42 | CR ---
Right knee: Two views of the right knee were obtained. Comparison: Previous right knee study of 10/14/18. Knee prosthesis is seen. Components are aligned. Soft tissue air is noted from the surgical procedure. Underlying bony structures are intact. Impression: 1. Satisfactory postop radiographic appearance of recently placed right knee prosthesis. Diagnostic code #2
[2018-11-22] MEDS: Famotidine 20 MG Tab PO SCH ×2 (09:54→18:00)
[2018-11-22] MEDS: Ketorolac 15 MG/ML SDV IVPUSH PRN ×2 (12:08→21:37)
[2018-11-22] MEDS: Pantoprazole 40 MG Tab.CR PO SCH (12:11)
[2018-11-22] MEDS: Acetaminophen/oxyCODONE 325-5 MG Tab PO PRN ×3 (13:22→21:37)
[2018-11-22] MEDS: ceFAZolin 2 GM in Premix Bag 1 BAG IV SCH ×2 (14:55→23:11)
[2018-11-22] MEDS ORDERED: DULoxetine 30 MG Cap PO SCH ×2 (21:00)
[2018-11-22] MEDS ORDERED: Prazosin 1 MG Cap PO SCH (21:00)
[2018-11-22] MEDS: Topiramate 25 MG Tab PO SCH (21:30)
[2018-11-22] MEDS: Docusate Sodium 100 MG Cap PO SCH (21:30)
[2018-11-22] MEDS: cloNIDine 0.1 MG Tab PO SCH (21:32)
[2018-11-23] MEDS: Acetaminophen/oxyCODONE 325-5 MG Tab PO PRN (04:13)
[2018-11-23] MEDS: Famotidine 20 MG Tab PO SCH (06:57)
[2018-11-23] MEDS: ceFAZolin 2 GM in Premix Bag 1 BAG IV SCH (06:57)
[2018-11-23] MEDS ORDERED: Prazosin 1 MG Cap PO SCH (07:00)
--- NOTE | 2018-11-23 07:15 | PCM.CONSN ---
- General Info Date of Service: 11/23/18 Admission Dx/Problem (Free Text): Admission Diagnosis/Problem Admission Diagnosis/Problem Osteoarthritis of knee Subjective Update: In to see Kiel. She is sitting up in the chair and has just finished up working with PT. OT saw her earlier in the day. She has been doing well. No concerns from patient or family. She will be cleared for discharge. Functional Status: Reports: Pain Controlled, Tolerating Diet, Ambulating, Urinating. Denies: New Symptoms - Review of Systems General: Reports: No Symptoms. Denies: Fever, Weakness, Fatigue, Malaise, Chills HEENT: Reports: No Symptoms. Denies: Headaches, Sore Throat Pulmonary: Reports: No Symptoms. Denies: Shortness of Breath, Pleuritic Chest Pain, Cough, Sputum, Wheezing Cardiovascular: Reports: No Symptoms. Denies: Chest Pain, Palpitations, Dyspnea on Exertion, Edema, Lightheadedness Gastrointestinal: Reports: No Symptoms. Denies: Abdominal Pain, Constipation, Diarrhea, Nausea, Vomiting Genitourinary: Reports: No Symptoms. Denies: Pain Musculoskeletal: Reports: Leg Pain Skin: Reports: No Symptoms. Denies: Cyanosis Neurological: Reports: No Symptoms. Denies: Confusion Psychiatric: Reports: No Symptoms - Patient Data Vitals - Most Recent: Last Vital Signs Temp 98.6 F 11/23/18 04:06 Pulse 80 11/23/18 04:06 Resp 16 11/23/18 04:06 BP 126/50 L 11/23/18 04:06 Pulse Ox 92 L 11/23/18 04:06 Weight - Most Recent: 268 lb 1.6 oz I&O - Last 24 Hours: Intake & Output 11/22/18 11/23/18 11/23/18 22:59 06:59 14:59 Intake Total 1430 1250 Output Total 1200 1800 Balance 230 -550 Lab Results Last 24 Hours: Laboratory Results - last 24 hr 11/23/18 11/23/18 Range/Units 06:00 06:00 WBC 12.86 H (3.98-10.04) K/mm3 RBC 3.70 L (3.98-5.22) M/mm3 Hgb 10.3 L (11.2-15.7) gm/L Hct 32.5 L (34.1-44.9) % MCV 87.8 (79.4-94.8) fl MCH 27.8 (25.6-32.2) pg MCHC 31.7 L (32.2-35.5) g/dl RDW Std Deviation 46.6 H (36.4-46.3) fL Plt Count 316 (182-369) K/mm3 MPV 9.6 (9.4-12.3) fl Sodium 141 (136-145) mEq/L Potassium 3.9 (3.5-5.1) mEq/L Chloride 105 (98-107) mEq/L Carbon Dioxide 27 (21-32) mEq/L Anion Gap 12.9 (5-15) BUN 13 (7-18) mg/dL Creatinine 0.8 (0.55-1.02) mg/dL Est Cr Clr Drug Dosing 84.54 mL/min Estimated GFR (MDRD) > 60 (>60) mL/min BUN/Creatinine Ratio 16.3 (14-18) Glucose 124 H (74-106) mg/dL Calcium 8.7 (8.5-10.1) mg/dL Total Bilirubin 0.3 (0.2-1.0) mg/dL AST 17 (15-37) U/L ALT 21 (14-59) U/L Alkaline Phosphatase 92 (46-116) U/L Total Protein 6.6 (6.4-8.2) g/dl Albumin 3.0 L (3.4-5.0) g/dl Globulin 3.6 gm/dL Albumin/Globulin Ratio 0.8 L (1-2) Med Orders - Current: Current Medications Albuterol (Proventil Neb Soln) 2.5 mg NEB Q4H PRN PRN Reason: asthma Bisacodyl (Dulcolax) 5 mg PO DAILY PRN PRN Reason: Constipation Budesonide (Pulmicort) 0.25 mg INH BID PRN PRN Reason: ashtma Cholecalciferol (Vitamin D3) 5,000 unit PO DAILY [facility] Citalopram Hydrobromide (Celexa) 20 mg PO DAILY [facility] Clonidine HCl (Catapres) 0.1 mg PO BID [facility] Last Admin: 11/22/18 21:32 Dose: 0.1 mg Cyclobenzaprine HCl (Flexeril) 10 mg PO TID PRN PRN Reason: Spasms Last Admin: 11/22/18 14:55 Dose: 10 mg Docusate Sodium (Colace) 100 mg PO BID [facility] Last Admin: 11/22/18 21:30 Dose: 100 mg Duloxetine HCl (Cymbalta) 60 mg PO BEDTIME [facility] Last Admin: 11/22/18 21:30 Dose: 60 mg Duloxetine HCl (Cymbalta) 30 mg PO BEDTIME [facility] Last Admin: 11/22/18 21:30 Dose: 30 mg Famotidine (Pepcid) 20 mg PO Q12H [facility] Last Admin: 11/23/18 06:57 Dose: 20 mg Cefazolin Sodium/Dextrose 2 gm (/ Premix) 50 mls @ 100 mls/hr IV Q8H [facility] Stop: 11/23/18 07:29 Last Admin: 11/23/18 06:57 Dose: 100 mls/hr Ketorolac Tromethamine (Toradol) 15 mg IVPUSH Q6H PRN PRN Reason: Pain Last Admin: 11/22/18 21:37 Dose: 15 mg Lorazepam (Ativan) 1 mg PO BID PRN PRN Reason: Anxiety Magnesium Hydroxide (Milk Of Magnesia) 30 ml PO BID PRN PRN Reason: Constipation Metoprolol Succinate (Toprol Xl) 25 mg PO DAILY [facility] Morphine Sulfate (Morphine) 2 mg IVPUSH Q2H PRN PRN Reason: Breakthrough Pain Naloxone HCl (Narcan) 0.1 mg IVPUSH Q5M PRN PRN Reason: Oversedation Ondansetron HCl (Zofran) 4 mg IVPUSH Q6H PRN PRN Reason: Nausea/Vomiting Oxycodone/Acetaminophen (Percocet 325-5 Mg) 1 - 2 tab PO Q4H PRN PRN Reason: Pain Last Admin: 11/23/18 04:13 Dose: 2 tab Pantoprazole Sodium (Protonix) 40 mg PO DAILY [facility] Last Admin: 11/22/18 12:11 Dose: 40 mg Prazosin HCl (Minpress) 1 mg PO TID [facility] Prazosin HCl (Minpress) 2 mg PO BEDTIME [facility] Last Admin: 11/22/18 21:31 Dose: 2 mg Rivaroxaban (Xarelto) 10 mg PO DAILY [facility] Senna (Senna) 8.6 mg PO BID PRN PRN Reason: Constipation Topiramate (Topamax) 50 mg PO BID [facility] Last Admin: 11/22/18 21:30 Dose: 50 mg Discontinued Medications Acetaminophen (Tylenol) 975 mg PO ONETIME [facility] Stop: 11/22/18 18:00 Last Admin: 11/22/18 06:36 Dose: 975 mg Bupivacaine HCl (Marcaine 0.25%) Confirm Administered Dose 30 ml .ROUTE .STK- MED ONE Stop: 11/22/18 06:22 Last Admin: 11/22/18 08:30 Dose: 4 ml Cefazolin Sodium (Ancef) Confirm Administered Dose 2 gm .ROUTE .STK-MED ONE Stop: 11/22/18 06:22 Last Admin: 11/22/18 07:55 Dose: 2 gm Morphine Sulfate 8 mg/Epinephrine HCl 0.3 mg/Cefuroxime Sodium 750 mg/Ketorolac Tromethamine 30 mg/Sodium Chloride 27.9 ml 0 mg .XX ONETIME ONE Stop: 11/22/18 06:46 Last Admin: 11/22/18 08:03 Dose: 788.3 mg Dexamethasone (Dexamethasone) Confirm Administered Dose 8 mg .ROUTE .STK-MED ONE Stop: 11/22/18 07:17 Diphenhydramine HCl (Benadryl) 25 mg IVPUSH Q6H PRN PRN Reason: Pruritis Stop: 11/22/18 14:00 Epinephrine HCl (Adrenalin) Confirm Administered Dose 1 mg .ROUTE .STK-MED ONE Stop: 11/22/18 07:47 Fentanyl (Sublimaze) Confirm Administered Dose 100 mcg .ROUTE .STK-MED ONE Stop: 11/22/18 06:47 Fentanyl (Sublimaze) 50 mcg IVPUSH Q5M PRN PRN Reason: Pain Stop: 11/22/18 12:00 Fluticasone Propionate (Flonase) gm ZAK BID PRN PRN Reason: Allergies Hydromorphone HCl (Dilaudid) 0.5 mg IVPUSH Q15M PRN PRN Reason: severe pain Stop: 11/22/18 12:00 Lactated Ringer's (Ringers, Lactated) 1,000 mls @ 125 mls/hr IV ASDIRECTED [facility] Stop: 11/22/18 23:00 Last Admin: 11/22/18 06:20 Dose: 125 mls/hr Lidocaine HCl (Xylocaine-Mpf 1%) Confirm Administered Dose 4 mls @ as directed .ROUTE .STK-MED ONE Stop: 11/22/18 07:12 Lactated Ringer's (Ringers, Lactated) Confirm Administered Dose 1,000 mls @ as directed .ROUTE .STK-MED ONE Stop: 11/22/18 08:22 Lactated Ringer's (Ringers, Lactated) Confirm Administered Dose 1,000 mls @ as directed .ROUTE .STK-MED ONE Stop: 11/22/18 08:23 Iodine (Iodine 2% Mild Tincture) Confirm Administered Dose 30 ml .ROUTE .STK- MED ONE Stop: 11/22/18 06:22 Last Admin: 11/22/18 07:51 Dose: 18 ml Ketamine HCl (Ketalar) Confirm Administered Dose 500 mg .ROUTE .STK-MED ONE Stop: 11/22/18 06:48 Ketorolac Tromethamine (Toradol) 30 mg IVPUSH ONETIME ONE Stop: 11/22/18 07:55 Last Admin: 11/22/18 17:12 Dose: Not Given Lamotrigine (Lamotrigine) 150 mg PO DAILY [facility] Lidocaine/Sodium Bicarbonate (Buffered Lidocaine 1% In Ns 8.4%) 0.25 ml IDERM ONETIME PRN PRN Reason: Prior to IV Start Stop: 11/22/18 18:00 Last Admin: 11/22/18 06:20 Dose: 0.25 ml Midazolam HCl (Versed 1 Mg/Ml) Confirm Administered Dose 2 mg .ROUTE .STK-MED ONE Stop: 11/22/18 06:47 Ondansetron HCl (Zofran) 4 mg IVPUSH ONETIME PRN PRN Reason: Nausea/Vomiting Stop: 11/22/18 14:00 Oxycodone HCl (Oxycontin) 10 mg PO ONETIME [facility] Stop: 11/22/18 18:00 Last Admin: 11/22/18 06:35 Dose: 10 mg Pregabalin (Lyrica) 50 mg PO ONETIME [facility] Stop: 11/22/18 18:00 Last Admin: 11/22/18 06:35 Dose: 50 mg Propofol (Diprivan 20 Ml) Confirm Administered Dose 600 mg .ROUTE .STK-MED ONE Stop: 11/22/18 06:47 Propofol (Diprivan 20 Ml) Confirm Administered Dose 200 mg .ROUTE .STK-MED ONE Stop: 11/22/18 08:14 Ropivacaine (Naropin 0.5%) Confirm Administered Dose 30 ml .ROUTE .STK-MED ONE Stop: 11/22/18 07:47 Sodium Chloride (Saline Flush) 10 ml FLUSH ASDIRECTED PRN PRN Reason: Keep Vein Open Stop: 11/22/18 18:00 Sumatriptan Succinate (Imitrex) 50 mg PO ASDIRECTED PRN PRN Reason: migraine Tranexamic Acid (Cyklokapron) Confirm Administered Dose 1,000 mg .ROUTE .STK- MED ONE Stop: 11/22/18 06:22 Last Admin: 11/22/18 08:10 Dose: 1,000 mg Triamcinolone Acetonide (Kenalog-40) Confirm Administered Dose 80 mg .ROUTE .STK -MED ONE Stop: 11/22/18 06:22 Last Admin: 11/22/18 08:30 Dose: 80 mg Triamcinolone Acetonide (Triamcinolone Acetonide 0.1% Crm) gm TOP BID [facility] Vancomycin HCl (Vancomycin) Confirm Administered Dose 1 gm .ROUTE .STK-MED ONE Stop: 11/22/18 06:22 Last Admin: 11/22/18 08:05 Dose: 1 gm - Exam Quality Assessment: DVT Prophylaxis General: Alert, Oriented, Cooperative, No Acute Distress HEENT: Pupils Equal, Pupils Reactive, EOMI, Mucous Membr. Moist/[place] Neck: Supple, Trachea Midline Lungs: Clear to Auscultation, Normal Respiratory Effort Cardiovascular: Regular Rate, Regular Rhythm GI/Abdominal Exam: Normal Bowel Sounds, Soft, Non-Tender, No Distention, No Abnormal Bruit (Female) Exam: Deferred Back Exam: Normal Inspection, Full Range of Motion Extremities: No Pedal Edema, Normal Capillary Refill, Leg Pain, Limited Range of Motion, Other (Bandage in place on right leg. Cooling pack in place.) Peripheral Pulses: 2+: Radial (L), Radial (R), Dorsalis Pedis (L), Dorsalis Pedis (R) Skin: Warm, Dry, Intact Wound/Incisions: Dressing Dry and Intact, No Drainage Neurological: No New Focal Deficit Psy/Mental Status: Alert, Normal Affect, Normal Mood Consult PN Assessment/Plan POD#: 1 Procedures: Procedures AIRWAY INHALATION TREATMENT (07/01/16) ANTITHROMBIN III ACTIVITY (01/21/15) ASSAY OF CK (CPK) (04/27/15) ASSAY OF FREE THYROXINE (05/12/18) ASSAY OF GONADOTROPIN (FSH) (02/23/17) ASSAY OF GONADOTROPIN (LH) (02/23/17) ASSAY OF HOMOCYSTINE (01/21/15) ASSAY OF IRON (05/14/15) ASSAY OF MAGNESIUM (05/18/14) ASSAY OF MYOGLOBIN (04/27/15) ASSAY OF NATRIURETIC PEPTIDE (07/11/14) ASSAY OF PREALBUMIN (11/17/18) ASSAY OF SERUM POTASSIUM (01/31/16) ASSAY OF TRANSFERRIN (05/14/15) ASSAY OF TROPONIN QUANT (04/21/15) ASSAY THYROID STIM HORMONE (05/12/18) C-REACTIVE PROTEIN (03/29/15) CHEST X-RAY 1 VIEW FRONTAL (07/11/14) CHEST X-RAY 2VW FRONTAL&LATL (06/25/16) CHORIONIC GONADOTROPIN ASSAY (03/21/15) CHORIONIC GONADOTROPIN TEST (02/23/17) CLOT INHIBIT PROT C ACTIVITY (01/21/15) CLOT INHIBIT PROT S FREE (01/21/15) COMP SCREEN MAMMOGRAM ADD-ON (12/31/15) COMPLETE CBC AUTOMATED (05/14/15) COMPLETE CBC W/AUTO DIFF WBC (11/17/18) COMPREHEN METABOLIC PANEL (11/17/18) COMPUTER DX MAMMOGRAM ADD-ON (12/25/14) CREATINE MB FRACTION (04/21/15) CT ABD & PELV W/CONTRAST (05/31/17) CT ANGIOGRAPHY CHEST (07/11/14) CT HEAD/BRAIN W/O DYE (02/18/18) CT NECK SPINE W/O DYE (03/31/17) CULTURE OTHR SPECIMN AEROBIC (08/03/18) ECG MONIT/REPRT UP TO 48 HRS (07/17/14) ECG MONIT/REPRT UP TO 48 HRS (07/17/14) ELECTROCARDIOGRAM TRACING (04/21/15) EMERGENCY DEPT VISIT (11/26/17) EMERGENCY DEPT VISIT (05/31/17) EMERGENCY DEPT VISIT (07/06/16) EMERGENCY DEPT VISIT (07/11/15) EMERGENCY DEPT VISIT (05/07/15) EMERGENCY DEPT VISIT (04/21/15) EMERGENCY DEPT VISIT (03/29/15) EMERGENCY DEPT VISIT (03/04/15) EMERGENCY DEPT VISIT (07/11/14) EMERGENCY DEPT VISIT (05/14/14) EVALUATE PT USE OF INHALER (07/01/16) EXTREMITY STUDY (04/18/16) EXTREMITY STUDY (03/27/15) EXTREMITY STUDY (03/04/15) F2 GENE (01/21/15) F5 GENE (01/21/15) FIBRIN DEGRADATION QUANT (04/21/15) GLYCOSYLATED HEMOGLOBIN TEST (01/10/16) HYDRATE IV INFUSION ADD-ON (11/26/17) HYDRATION IV INFUSION INIT (07/11/14) HYSTEROSCOPY BIOPSY (06/20/15) INSERT BLADDER CATHETER (12/14/14) KNEE ARTHROSCOPY/SURGERY (07/19/15) KNEE ARTHROSCOPY/SURGERY (07/19/15) LAPAROSCOPY EXCISE LESIONS (06/20/15) LIPID PANEL (11/05/17) METABOLIC PANEL TOTAL CA (04/27/15) MICROBE SUSCEPTIBLE NIURKA (04/11/16) MR-STAPH DNA AMP PROBE (06/18/16) MRI JNT OF LWR EXTRE W/O DYE (05/09/16) MRI JOINT UPR EXTREM W/O DYE (06/17/16) PROTHROMBIN TIME (11/17/18) PT EVAL LOW COMPLEX 20 MIN (05/15/17) REPAIR OF BICEPS TENDON (07/01/16) REPAIR ROTATOR CUFF CHRONIC (07/01/16) ROUTINE VENIPUNCTURE (05/31/17) SHOULDER ARTHROSCOPY/SURGERY (07/01/16) SHOULDER ARTHROSCOPY/SURGERY (07/01/16) SHOULDER ARTHROSCOPY/SURGERY (07/01/16) SHOULDER ARTHROSCOPY/SURGERY (01/02/15) THER/PROPH/DIAG INJ IV PUSH (11/26/17) THER/PROPH/DIAG INJ SC/IM (11/26/17) THERAPEUTIC EXERCISES (06/03/17) THROMBOPLASTIN TIME PARTIAL (11/17/18) TISSUE EXAM BY PATHOLOGIST (06/20/15) TRANSVAGINAL US NON-OB (03/10/17) TX/PRO/DX INJ NEW DRUG ADDON (11/26/17) TX/PRO/DX INJ SAME DRUG [employer] AGENT (12/14/14) ULTRASOUND BREAST COMPLETE (12/29/14) ULTRASOUND THERAPY (06/03/17) UR ALBUMIN SEMIQUANTITATIVE (01/10/16) URINALYSIS AUTO W/SCOPE (03/29/15) URINE BACTERIA CULTURE (04/11/16) URINE CULTURE/COLONY COUNT (06/25/16) URINE TEST (07/19/15) US EXAM PELVIC COMPLETE (12/14/14) VITAMIN B-12 (11/05/17) VITAMIN D 25 HYDROXY (11/05/17) X-RAY EXAM CHEST 2 VIEWS (11/17/18) X-RAY EXAM HIP UNI 2-3 VIEWS (10/14/18) X-RAY EXAM KNEE 4 OR MORE (10/14/18) X-RAY EXAM L-S SPINE 2/3 VWS (02/03/18) X-RAY EXAM OF ANKLE (01/05/17) X-RAY EXAM OF FOOT (11/04/17) X-RAY EXAM OF KNEE 1 OR 2 (02/25/18) X-RAY EXAM OF KNEE 3 (05/23/16) X-RAY EXAM OF LOWER LEG (07/11/15) X-RAY EXAM OF SHOULDER (04/16/16) X-RAY EXAM OF SHOULDER (12/29/13) X-RAY EXAM OF SKULL (06/17/16) X-RAY EXAM OF WRIST (03/19/17) (1) S/P total knee arthroplasty SNOMED Code(s): 8147886997048, 939124497, 4788233243376 Code(s): Z96.659 - PRESENCE OF UNSPECIFIED ARTIFICIAL KNEE JOINT Priority: High Current Visit: Yes Qualifiers: Laterality: right Qualified Code(s): Z96.651 - Presence of right artificial knee joint (2) Osteoarthritis SNOMED Code(s): 300194305 Code(s): M19.90 - UNSPECIFIED OSTEOARTHRITIS, UNSPECIFIED SITE Priority: High Current Visit: Yes Qualifiers: Osteoarthritis location: knee Osteoarthritis type: primary Laterality: bilateral Qualified Code(s): M17.0 - Bilateral primary osteoarthritis of knee (3) History of deep venous thrombosis or pulmonary embolus SNOMED Code(s): 827881755 Code(s): PJX5096 - Priority: Medium Current Visit: No (4) Allergic rhinitis SNOMED Code(s): 28476031 Code(s): J30.9 - ALLERGIC RHINITIS, UNSPECIFIED Priority: Low Current Visit: No Qualifiers: Allergic rhinitis trigger: unspecified Allergic rhinitis seasonality: seasonal Qualified Code(s): J30.2 - Other seasonal allergic rhinitis (5) HLD (hyperlipidemia) SNOMED Code(s): 56015471 Code(s): E78.5 - HYPERLIPIDEMIA, UNSPECIFIED Priority: Low Current Visit : No Qualifiers: Hyperlipidemia type: unspecified Qualified Code(s): E78.5 - Hyperlipidemia , unspecified (6) HTN (hypertension) SNOMED Code(s): 14180054 Code(s): I10 - ESSENTIAL (PRIMARY) HYPERTENSION Priority: Medium Current Visit: No Qualifiers: Hypertension type: unspecified Qualified Code(s): I10 - Essential (primary ) hypertension (7) Asthma SNOMED Code(s): 839056102 Code(s): J45.909 - UNSPECIFIED ASTHMA, UNCOMPLICATED Priority: Medium Current Visit: No Qualifiers: Asthma severity: unspecified severity Asthma persistence: unspecified Asthma complication type: unspecified Qualified Code(s): J45.909 - Unspecified asthma, uncomplicated (8) COPD (chronic obstructive pulmonary disease) SNOMED Code(s): 70645485 Code(s): J44.9 - CHRONIC OBSTRUCTIVE PULMONARY DISEASE, UNSPECIFIED Priority: Medium Current Visit: No Qualifiers: COPD type: unspecified COPD Qualified Code(s): J44.9 - Chronic obstructive pulmonary disease, unspecified (9) GERD (gastroesophageal reflux disease) SNOMED Code(s): 590917225 Code(s): K21.9 - GASTRO-ESOPHAGEAL REFLUX DISEASE WITHOUT ESOPHAGITIS Priority: Low Current Visit: No Qualifiers: Esophagitis presence: esophagitis presence not specified Qualified Code(s) : K21.9 - Gastro-esophageal reflux disease without esophagitis (10) Chronic diarrhea SNOMED Code(s): 678101015 Code(s): K52.9 - NONINFECTIVE GASTROENTERITIS AND COLITIS, UNSPECIFIED Priority: Low Current Visit: No (11) Urinary incontinence SNOMED Code(s): 219540811 Code(s): R32 - UNSPECIFIED URINARY INCONTINENCE Priority: Low Current Visit: No Qualifiers: Urinary Incontinence type: unspecified incontinence Qualified Code(s): R32 - Unspecified urinary incontinence (12) RLS (restless legs syndrome) SNOMED Code(s): 59361842 Code(s): G25.81 - RESTLESS LEGS SYNDROME Priority: Low Current Visit: No (13) Chronic headache SNOMED Code(s): 174502656 Code(s): R51 - HEADACHE Priority: Low Current Visit: No Qualifiers: Headache type: unspecified Intractability: intractable Qualified Code(s) : R51 - Headache (14) Peripheral neuropathy SNOMED Code(s): 038165260 Code(s): G62.9 - POLYNEUROPATHY, UNSPECIFIED Priority: Medium Current Visit: No Qualifiers: Peripheral neuropathy type: polyneuropathy, unspecified Qualified Code(s): G62.9 - Polyneuropathy, unspecified (15) PTSD (post-traumatic stress disorder) SNOMED Code(s): 87905649 Code(s): F43.10 - POST-TRAUMATIC STRESS DISORDER, UNSPECIFIED Priority: Medium Current Visit: No (16) Anxiety SNOMED Code(s): 43009821 Code(s): F41.9 - ANXIETY DISORDER, UNSPECIFIED Priority: Low Current Visit: No (17) Eczema SNOMED Code(s): 30826457 Code(s): L30.9 - DERMATITIS, UNSPECIFIED Priority: Low Current Visit: No Qualifiers: Eczema type: unspecified Qualified Code(s): L30.9 - Dermatitis, unspecified (18) History of suicide attempt SNOMED Code(s): 669407278, 358990449 Code(s): Z91.5 - PERSONAL HISTORY OF SELF-HARM Priority: Low Current Visit: No (19) Anemia SNOMED Code(s): 169301885 Code(s): D64.9 - ANEMIA, UNSPECIFIED Priority: Medium Current Visit: No Qualifiers: Anemia type: unspecified type Qualified Code(s): D64.9 - Anemia, unspecified (20) Depression SNOMED Code(s): 83380892 Code(s): F32.9 - MAJOR DEPRESSIVE DISORDER, SINGLE EPISODE, UNSPECIFIED Priority: Low Current Visit: No Qualifiers: Depression Type: other depression Qualified Code(s): F32.89 - Other specified depressive episodes Problem List Initiated/Reviewed/Updated: Yes My Orders Last 24 Hours: My Active Orders 11/22/18 21:00 DULoxetine [Cymbalta] 30 mg PO BEDTIME Plan: I/P: Acute: S/P right total knee arthroplasty - post-operative day 1 -DVT prophylaxis and pain management per primary care team -PT/OT -IS/RT -Monitor oxygen saturation -Titrate oxygen as needed -Home medications reviewed -Vital signs stable -Monitor labs -Pre-operative Hgb was 12.3; Now 10.3 -Pre-operative GFR was 59; Now >60 Osteoarthritis of bilateral knees -Pain management per primary care team S/P cortisone injection of left knee -Management per primary team Chronic: HTN Headaches Anxiety GERD HLD Irregular HR Edema COPD Recurrent Bronchitis Urinary incontinence Recurrent UTIs Menorrhagia Osteoarthritis, RLS Peripheral neuropathy Chronic diarrhea PTSD Depression Vitamin D deficiency B12 deficiency Anemia Eczema DVT in 2014 Allergic rhinitis Hx/o Suicide attempt Varicose venins Asthma. Plan: CM for discharge planning GI prophylaxis Home medications as indicated Other orders as listed above Routine AM labs She is a full code. Her PCP is Cara Miguel NP From a hospitalist standpoint Kiel is doing well. She has been up ambulating and working with therapies. She is off of oxygen and has urinated. Her labs and vital signs remain stable and pain is controlled. She is cleared for discharge pending primary team and PT/OT agreement. Thank you for allowing us to participate in the care of this patient!!
[2018-11-23] MEDS: Pantoprazole 40 MG Tab.CR PO SCH (08:03)
[2018-11-23] MEDS: Docusate Sodium 100 MG Cap PO SCH (08:03)
[2018-11-23] MEDS: Topiramate 25 MG Tab PO SCH (08:03)
[2018-11-23] MEDS: cloNIDine 0.1 MG Tab PO SCH (08:03)
--- NOTE | 2018-11-23 08:05 | PCM.SURGPN ---
- General Info Date of Service: 11/23/18 POD#: 1 Functional Status: Reports: Pain Controlled, Tolerating Diet, Ambulating, Urinating, Incentive Spirometry, Other (The pt states she has less pain at left knee s/p injection and feels she is doing well re: right knee.) - Patient Data Vitals - Most Recent: Last Vital Signs Temp 98.6 F 11/23/18 04:06 Pulse 80 11/23/18 04:06 Resp 16 11/23/18 04:06 BP 126/50 L 11/23/18 04:06 Pulse Ox 92 L 11/23/18 04:06 Weight - Most Recent: 268 lb 1.6 oz I&O - Last 24 Hours: Intake & Output 11/22/18 11/23/18 11/23/18 22:59 06:59 14:59 Intake Total 1430 1250 Output Total 1200 1800 Balance 230 -550 Lab Results Last 24 Hrs: Laboratory Results - last 24 hr 11/23/18 11/23/18 Range/Units 06:00 06:00 WBC 12.86 H (3.98-10.04) K/mm3 RBC 3.70 L (3.98-5.22) M/mm3 Hgb 10.3 L (11.2-15.7) gm/L Hct 32.5 L (34.1-44.9) % MCV 87.8 (79.4-94.8) fl MCH 27.8 (25.6-32.2) pg MCHC 31.7 L (32.2-35.5) g/dl RDW Std Deviation 46.6 H (36.4-46.3) fL Plt Count 316 (182-369) K/mm3 MPV 9.6 (9.4-12.3) fl Sodium 141 (136-145) mEq/L Potassium 3.9 (3.5-5.1) mEq/L Chloride 105 (98-107) mEq/L Carbon Dioxide 27 (21-32) mEq/L Anion Gap 12.9 (5-15) BUN 13 (7-18) mg/dL Creatinine 0.8 (0.55-1.02) mg/dL Est Cr Clr Drug Dosing 84.54 mL/min Estimated GFR (MDRD) > 60 (>60) mL/min BUN/Creatinine Ratio 16.3 (14-18) Glucose 124 H (74-106) mg/dL Calcium 8.7 (8.5-10.1) mg/dL Total Bilirubin 0.3 (0.2-1.0) mg/dL AST 17 (15-37) U/L ALT 21 (14-59) U/L Alkaline Phosphatase 92 (46-116) U/L Total Protein 6.6 (6.4-8.2) g/dl Albumin 3.0 L (3.4-5.0) g/dl Globulin 3.6 gm/dL Albumin/Globulin Ratio 0.8 L (1-2) Med Orders - Current: Current Medications Albuterol (Proventil Neb Soln) 2.5 mg NEB Q4H PRN PRN Reason: asthma Bisacodyl (Dulcolax) 5 mg PO DAILY PRN PRN Reason: Constipation Budesonide (Pulmicort) 0.25 mg INH BID PRN PRN Reason: ashtma Cholecalciferol (Vitamin D3) 5,000 unit PO DAILY [facility] Citalopram Hydrobromide (Celexa) 20 mg PO DAILY [facility] Clonidine HCl (Catapres) 0.1 mg PO BID [facility] Last Admin: 11/22/18 21:32 Dose: 0.1 mg Cyclobenzaprine HCl (Flexeril) 10 mg PO TID PRN PRN Reason: Spasms Last Admin: 11/22/18 14:55 Dose: 10 mg Docusate Sodium (Colace) 100 mg PO BID [facility] Last Admin: 11/22/18 21:30 Dose: 100 mg Duloxetine HCl (Cymbalta) 60 mg PO BEDTIME [facility] Last Admin: 11/22/18 21:30 Dose: 60 mg Duloxetine HCl (Cymbalta) 30 mg PO BEDTIME [facility] Last Admin: 11/22/18 21:30 Dose: 30 mg Ketorolac Tromethamine (Toradol) 15 mg IVPUSH Q6H PRN PRN Reason: Pain Last Admin: 11/22/18 21:37 Dose: 15 mg Lorazepam (Ativan) 1 mg PO BID PRN PRN Reason: Anxiety Magnesium Hydroxide (Milk Of Magnesia) 30 ml PO BID PRN PRN Reason: Constipation Metoprolol Succinate (Toprol Xl) 25 mg PO DAILY [facility] Morphine Sulfate (Morphine) 2 mg IVPUSH Q2H PRN PRN Reason: Breakthrough Pain Naloxone HCl (Narcan) 0.1 mg IVPUSH Q5M PRN PRN Reason: Oversedation Ondansetron HCl (Zofran) 4 mg IVPUSH Q6H PRN PRN Reason: Nausea/Vomiting Oxycodone/Acetaminophen (Percocet 325-5 Mg) 1 - 2 tab PO Q4H PRN PRN Reason: Pain Last Admin: 11/23/18 04:13 Dose: 2 tab Pantoprazole Sodium (Protonix) 40 mg PO DAILY [facility] Last Admin: 11/22/18 12:11 Dose: 40 mg Prazosin HCl (Minpress) 1 mg PO 0700,1200,1700 [facility] Prazosin HCl (Minpress) 2 mg PO BEDTIME [facility] Last Admin: 11/22/18 21:31 Dose: 2 mg Rivaroxaban (Xarelto) 10 mg PO DAILY [facility] Senna (Senna) 8.6 mg PO BID PRN PRN Reason: Constipation Topiramate (Topamax) 50 mg PO BID [facility] Last Admin: 11/22/18 21:30 Dose: 50 mg Discontinued Medications Acetaminophen (Tylenol) 975 mg PO ONETIME [facility] Stop: 11/22/18 18:00 Last Admin: 11/22/18 06:36 Dose: 975 mg Bupivacaine HCl (Marcaine 0.25%) Confirm Administered Dose 30 ml .ROUTE .STK- MED ONE Stop: 11/22/18 06:22 Last Admin: 11/22/18 08:30 Dose: 4 ml Cefazolin Sodium (Ancef) Confirm Administered Dose 2 gm .ROUTE .STK-MED ONE Stop: 11/22/18 06:22 Last Admin: 11/22/18 07:55 Dose: 2 gm Morphine Sulfate 8 mg/Epinephrine HCl 0.3 mg/Cefuroxime Sodium 750 mg/Ketorolac Tromethamine 30 mg/Sodium Chloride 27.9 ml 0 mg .XX ONETIME ONE Stop: 11/22/18 06:46 Last Admin: 11/22/18 08:03 Dose: 788.3 mg Dexamethasone (Dexamethasone) Confirm Administered Dose 8 mg .ROUTE .STK-MED ONE Stop: 11/22/18 07:17 Diphenhydramine HCl (Benadryl) 25 mg IVPUSH Q6H PRN PRN Reason: Pruritis Stop: 11/22/18 14:00 Epinephrine HCl (Adrenalin) Confirm Administered Dose 1 mg .ROUTE .STK-MED ONE Stop: 11/22/18 07:47 Famotidine (Pepcid) 20 mg PO Q12H [facility] Last Admin: 11/23/18 06:57 Dose: 20 mg Fentanyl (Sublimaze) Confirm Administered Dose 100 mcg .ROUTE .STK-MED ONE Stop: 11/22/18 06:47 Fentanyl (Sublimaze) 50 mcg IVPUSH Q5M PRN PRN Reason: Pain Stop: 11/22/18 12:00 Fluticasone Propionate (Flonase) gm ZAK BID PRN PRN Reason: Allergies Hydromorphone HCl (Dilaudid) 0.5 mg IVPUSH Q15M PRN PRN Reason: severe pain Stop: 11/22/18 12:00 Lactated Ringer's (Ringers, Lactated) 1,000 mls @ 125 mls/hr IV ASDIRECTED [facility] Stop: 11/22/18 23:00 Last Admin: 11/22/18 06:20 Dose: 125 mls/hr Cefazolin Sodium/Dextrose 2 gm (/ Premix) 50 mls @ 100 mls/hr IV Q8H [facility] Stop: 11/23/18 07:29 Last Admin: 11/23/18 06:57 Dose: 100 mls/hr Lidocaine HCl (Xylocaine-Mpf 1%) Confirm Administered Dose 4 mls @ as directed .ROUTE .STK-MED ONE Stop: 11/22/18 07:12 Lactated Ringer's (Ringers, Lactated) Confirm Administered Dose 1,000 mls @ as directed .ROUTE .STK-MED ONE Stop: 11/22/18 08:22 Lactated Ringer's (Ringers, Lactated) Confirm Administered Dose 1,000 mls @ as directed .ROUTE .STK-MED ONE Stop: 11/22/18 08:23 Iodine (Iodine 2% Mild Tincture) Confirm Administered Dose 30 ml .ROUTE .STK- MED ONE Stop: 11/22/18 06:22 Last Admin: 11/22/18 07:51 Dose: 18 ml Ketamine HCl (Ketalar) Confirm Administered Dose 500 mg .ROUTE .STK-MED ONE Stop: 11/22/18 06:48 Ketorolac Tromethamine (Toradol) 30 mg IVPUSH ONETIME ONE Stop: 11/22/18 07:55 Last Admin: 11/22/18 17:12 Dose: Not Given Lamotrigine (Lamotrigine) 150 mg PO DAILY [facility] Lidocaine/Sodium Bicarbonate (Buffered Lidocaine 1% In Ns 8.4%) 0.25 ml IDERM ONETIME PRN PRN Reason: Prior to IV Start Stop: 11/22/18 18:00 Last Admin: 11/22/18 06:20 Dose: 0.25 ml Midazolam HCl (Versed 1 Mg/Ml) Confirm Administered Dose 2 mg .ROUTE .STK-MED ONE Stop: 11/22/18 06:47 Ondansetron HCl (Zofran) 4 mg IVPUSH ONETIME PRN PRN Reason: Nausea/Vomiting Stop: 11/22/18 14:00 Oxycodone HCl (Oxycontin) 10 mg PO ONETIME [facility] Stop: 11/22/18 18:00 Last Admin: 11/22/18 06:35 Dose: 10 mg Pregabalin (Lyrica) 50 mg PO ONETIME [facility] Stop: 11/22/18 18:00 Last Admin: 11/22/18 06:35 Dose: 50 mg Propofol (Diprivan 20 Ml) Confirm Administered Dose 600 mg .ROUTE .STK-MED ONE Stop: 11/22/18 06:47 Propofol (Diprivan 20 Ml) Confirm Administered Dose 200 mg .ROUTE .STK-MED ONE Stop: 11/22/18 08:14 Ropivacaine (Naropin 0.5%) Confirm Administered Dose 30 ml .ROUTE .STK-MED ONE Stop: 11/22/18 07:47 Sodium Chloride (Saline Flush) 10 ml FLUSH ASDIRECTED PRN PRN Reason: Keep Vein Open Stop: 11/22/18 18:00 Sumatriptan Succinate (Imitrex) 50 mg PO ASDIRECTED PRN PRN Reason: migraine Tranexamic Acid (Cyklokapron) Confirm Administered Dose 1,000 mg .ROUTE .STK- MED ONE Stop: 11/22/18 06:22 Last Admin: 11/22/18 08:10 Dose: 1,000 mg Triamcinolone Acetonide (Kenalog-40) Confirm Administered Dose 80 mg .ROUTE .STK -MED ONE Stop: 11/22/18 06:22 Last Admin: 11/22/18 08:30 Dose: 80 mg Triamcinolone Acetonide (Triamcinolone Acetonide 0.1% Crm) gm TOP BID [facility] Vancomycin HCl (Vancomycin) Confirm Administered Dose 1 gm .ROUTE .STK-MED ONE Stop: 11/22/18 06:22 Last Admin: 11/22/18 08:05 Dose: 1 gm - Exam Wound/Incisions: Dressing Dry and Intact General: Alert, Cooperative, No Acute Distress Lungs: Normal Respiratory Effort Extremities: Other (NVS intact for BLE. Robyn's negative.) - Problem List Review Problem List Initiated/Reviewed/Updated: Yes - My Orders Last 24 Hours: Active Orders 24 hr Category Date Time Status Communication Order [RC] ROUTINE Care 11/22/18 07:48 Inactive Notify Provider [RC] ASDIRECTED Care 11/22/18 07:48 Active Pulse Oximetry [RC] ASDIRECTED Care 11/22/18 07:48 Active Ready for Discharge [RC] PER UNIT ROUTINE Care 11/23/18 08:02 Ordered Vital Signs [RC] Q15M Care 11/22/18 07:48 Inactive Regular Diet [DIET] Diet 11/22/18 Lunch Active Albuterol [Proventil Neb Soln] Med 11/22/18 08:37 Active 2.5 mg NEB Q4H PRN Budesonide [Pulmicort] Med 11/22/18 08:37 Active 0.25 mg INH BID PRN Cholecalciferol (Vitamin D3) [Vitamin D3] Med 11/23/18 09:00 Active 5,000 unit PO DAILY Citalopram [Celexa] Med 11/23/18 09:00 Active 20 mg PO DAILY DULoxetine [Cymbalta] Med 11/22/18 21:00 Active 30 mg PO BEDTIME DULoxetine [Cymbalta] Med 11/22/18 21:00 Active 60 mg PO BEDTIME Docusate Sodium [Colace] Med 11/22/18 21:00 Active 100 mg PO BID Ketorolac [Toradol] Med 11/22/18 09:30 Active 15 mg IVPUSH Q6H PRN LORazepam [Ativan] Med 11/22/18 08:37 Active 1 mg PO BID PRN Magnesium Hydroxide [Milk of Magnesia] Med 11/22/18 09:30 Active 30 ml PO BID PRN Metoprolol Succinate [Toprol XL] Med 11/23/18 09:00 Active 25 mg PO DAILY [facility] Med 11/22/18 09:00 Active 2 mg IVPUSH Q2H PRN Naloxone [Narcan] Med 11/22/18 09:00 Active 0.1 mg IVPUSH Q5M PRN Ondansetron [Zofran] Med 11/22/18 09:00 Active 4 mg IVPUSH Q6H PRN Pantoprazole [ProTONIX] Med 11/22/18 09:00 Active 40 mg PO DAILY Prazosin [Minpress] Med 11/23/18 07:00 Active 1 mg PO 0700,1200,1700 Prazosin [Minpress] Med 11/22/18 21:00 Active 2 mg PO BEDTIME Rivaroxaban [Xarelto] Med 11/23/18 09:00 Active 10 mg PO DAILY Sennosides [Senna] Med 11/22/18 09:00 Active 8.6 mg PO BID PRN Topiramate [Topamax] Med 11/22/18 21:00 Active 50 mg PO BID cloNIDine [Catapres] Med 11/22/18 21:00 Active 0.1 mg PO BID Medication Orders Albuterol (Proventil Neb Soln) 2.5 mg NEB Q4H PRN PRN Reason: asthma Bisacodyl (Dulcolax) 5 mg PO DAILY PRN PRN Reason: Constipation Budesonide (Pulmicort) 0.25 mg INH BID PRN PRN Reason: ashtma Cholecalciferol (Vitamin D3) 5,000 unit PO DAILY [facility] Citalopram Hydrobromide (Celexa) 20 mg PO DAILY [facility] Clonidine HCl (Catapres) 0.1 mg PO BID [facility] Last Admin: 11/22/18 21:32 Dose: 0.1 mg Cyclobenzaprine HCl (Flexeril) 10 mg PO TID PRN PRN Reason: Spasms Last Admin: 11/22/18 14:55 Dose: 10 mg Docusate Sodium (Colace) 100 mg PO BID [facility] Last Admin: 11/22/18 21:30 Dose: 100 mg Duloxetine HCl (Cymbalta) 60 mg PO BEDTIME [facility] Last Admin: 11/22/18 21:30 Dose: 60 mg Duloxetine HCl (Cymbalta) 30 mg PO BEDTIME [facility] Last Admin: 11/22/18 21:30 Dose: 30 mg Ketorolac Tromethamine (Toradol) 15 mg IVPUSH Q6H PRN PRN Reason: Pain Last Admin: 11/22/18 21:37 Dose: 15 mg Admin: 11/22/18 12:08 Dose: 15 mg Lorazepam (Ativan) 1 mg PO BID PRN PRN Reason: Anxiety Magnesium Hydroxide (Milk Of Magnesia) 30 ml PO BID PRN PRN Reason: Constipation Metoprolol Succinate (Toprol Xl) 25 mg PO DAILY [facility] Morphine Sulfate (Morphine) 2 mg IVPUSH Q2H PRN PRN Reason: Breakthrough Pain Naloxone HCl (Narcan) 0.1 mg IVPUSH Q5M PRN PRN Reason: Oversedation Ondansetron HCl (Zofran) 4 mg IVPUSH Q6H PRN PRN Reason: Nausea/Vomiting Oxycodone/Acetaminophen (Percocet 325-5 Mg) 1 - 2 tab PO Q4H PRN PRN Reason: Pain Last Admin: 11/23/18 04:13 Dose: 2 tab Admin: 11/22/18 21:37 Dose: 2 tab Admin: 11/22/18 17:59 Dose: 2 tab Admin: 11/22/18 13:22 Dose: 2 tab Pantoprazole Sodium (Protonix) 40 mg PO DAILY [facility] Last Admin: 11/22/18 12:11 Dose: 40 mg Prazosin HCl (Minpress) 1 mg PO 0700,1200,1700 [facility] Prazosin HCl (Minpress) 2 mg PO BEDTIME [facility] Last Admin: 11/22/18 21:31 Dose: 2 mg Rivaroxaban (Xarelto) 10 mg PO DAILY [facility] Senna (Senna) 8.6 mg PO BID PRN PRN Reason: Constipation Topiramate (Topamax) 50 mg PO BID [facility] Last Admin: 11/22/18 21:30 Dose: 50 mg - Assessment Assessment (Free Text/Narrative):: POD#1 - right TKA with left knee cortisone injection - Plan Plan (Free Text/Narrative):: 1. Hgb 10.3. 2. Xarelto 10mg PO daily - personal hx VTE. TEDs, frequent mobility. 3. Discharge to home today. 4. Outpatient therapy. The pt's case was discussed with Dr. Fuentes.
--- NOTE | 2018-11-23 08:07 | PCM.DCSUM1 ---
Discharge Summary - Hospital Course Brief History: Kiel is a 48 yo female who underwent right TKA with left knee cortisone injection with Dr. Fuentes on 11-22-2018. The procedure was completed under spinal anesthesia with MAC. The pt tolerated the procedure well and was admitted to the Medical-Surgical Unit. Medical management was provided by the Hospitalist service. The pt's Hospital course was uneventful. The pt's Hgb on POD#1 was 10.3. On POD#1, Xarelto 10mg PO daily was initiated for VTE prophylaxis. SCDs and TEDs were also ordered. A Mepilex dressing was placed at the incision site at the time of surgery and remained clean and dry. The pt participated in P.T. and O.T. and progressed well. The pt was allowed to WBAT. On POD#1, the pt was deemed appropriate to discharge to home with her family. - Discharge Data Discharge Date: 11/23/18 Discharge Disposition: Home, Self-Care 01 Condition: Good - Patient Summary/Data Consults: Consultations 11/22/18 06:45 OT Evaluation and Treatment [CONS] Routine PT Evaluation and Treatment [CONS] Routine 11/22/18 06:51 Consult to Physician [CONS] Routine - Patient Instructions Diet: Usual Diet as Tolerated Activity: Apply Ice, As Tolerated, Elevate Extremity, Full Weight Bearing Driving: Do Not Drive Showering/Bathing: May Shower Wound/Incision Care: Keep Operative Site/Wound Site Clean and Dry, Do NOT Change Dressing Notify Provider of: Fever, Increased Pain, Swelling and Redness, Drainage, Nausea and/or Vomiting Other/Special Instructions: Please get up and moving around EVERY HOUR while awake. Take a short walk every hour while awake. This helps to prevent blood clots. Have help with mobility as needed. Please take Xarelto 10mg daily to also help prevent blood clots. Please wear the LUCI hose during the day and you may remove them at night. Please schedule for P.T. Complete the P.T. exercises and stretches that were instructed in the Hospital. Please use the pain medication as needed. The medication may cause drowsiness and/or constipation. You could use a stool softener like docusate sodium or Colace 100mg twice daily and/or a laxative like Miralax daily for constipation. Contact your primary care provider for further instructions if you are constipated. Discontinue use of the pain medication as soon as able. Please do not use other medications that may cause drowsiness (other pain medications, anxiety pills, sleeping pills, allergy medications that cause drowsiness) while using the pain medication. Please do not use alcohol while using the pain medication. Use the incentive spirometer often. Please place ice to the surgical site often. Place a towel between your skin and the blue pad. Please elevate the limb to decrease swelling. Keep the dressing in place until follow- up. Please notify the Clinic if the dressing is saturated or rolls. Increase protein intake in your diet as this helps with healing. Please call [phone] with questions or concerns. - Discharge Plan *PRESCRIPTION DRUG MONITORING PROGRAM REVIEWED*: No *COPY OF PRESCRIPTION DRUG MONITORING REPORT IN PATIENT JUD: No Prescriptions/Med Rec: Acetaminophen/oxyCODONE [Percocet 325-5 MG] 1 - 2 tab PO Q4H PRN #60 tablet PRN Reason: Pain Cyclobenzaprine [Flexeril] 10 mg PO TID PRN #40 tablet PRN Reason: Spasms Home Medications: Home Meds LORazepam [Ativan] 1 mg PO BID PRN 04/16/14 [History] Omeprazole 20 mg PO DAILY 04/16/14 [History] cloNIDine HCl [Clonidine HCl] 1 tab PO BID 04/16/14 [History] Fluticasone Propionate [Flonase] 1 spray ZAK BID PRN 12/14/14 [History] Metoprolol Succinate [Toprol XL] 25 mg PO DAILY 05/31/17 [History] Albuterol [Proventil Neb Soln] 1 dose NEB Q4H PRN 11/19/18 [History] Budesonide [Pulmicort] 1 dose INH BID PRN 11/19/18 [History] Cholecalciferol (Vitamin D3) [Vitamin D3] 6,000 unit PO DAILY 11/19/18 [History] Citalopram [Citalopram HBr] 20 mg PO DAILY 11/19/18 [History] DULoxetine HCl [Duloxetine HCl] 60 mg PO BEDTIME 11/19/18 [History] Prazosin HCl [Prazosin] 1 mg PO TID 11/19/18 [History] Prazosin HCl [Prazosin] 2 mg PO BEDTIME 11/19/18 [History] SUMAtriptan [Imitrex] 50 mg PO ASDIRECTED PRN 11/19/18 [History] Topiramate 50 mg PO BID 11/19/18 [History] Triamcinolone Acetonide [Triamcinolone Acetonide 0.1% Crm] 1 dose TOP BID PRN [History] lamoTRIgine [Lamotrigine] 150 mg PO DAILY 11/19/18 [History] Acetaminophen/oxyCODONE [Percocet 325-5 MG] 1 - 2 tab PO Q4H PRN #60 tablet 04/04 [Rx] Aspirin 81 mg PO DAILY 11/22/18 [History] Cyclobenzaprine [Flexeril] 10 mg PO TID PRN #40 tablet 11/22/18 [Rx] DULoxetine [Cymbalta] 30 mg PO BEDTIME 11/22/18 [History] Docusate Sodium [Colace] 100 mg PO BID cap 11/22/18 [Rx] Patient Handouts: Rivaroxaban oral tablets Referrals: Conchita Tolentino PA-C [Physician Braille Translator] - - Discharge Summary/Plan Comment DC Time >30 min.: No - Patient Data Vitals - Most Recent: Last Vital Signs Temp 98.6 F 11/23/18 04:06 Pulse 85 11/23/18 08:02 Resp 16 11/23/18 04:06 BP 126/59 L 11/23/18 08:03 Pulse Ox 92 L 11/23/18 04:06 Weight - Most Recent: 268 lb 1.6 oz I&O - Last 24 hours: Intake & Output 11/22/18 11/23/18 11/23/18 22:59 06:59 14:59 Intake Total 1430 1250 Output Total 1200 1800 Balance 230 -550 Lab Results - Last 24 hrs: Laboratory Results - last 24 hr 11/23/18 11/23/18 Range/Units 06:00 06:00 WBC 12.86 H (3.98-10.04) K/mm3 RBC 3.70 L (3.98-5.22) M/mm3 Hgb 10.3 L (11.2-15.7) gm/L Hct 32.5 L (34.1-44.9) % MCV 87.8 (79.4-94.8) fl MCH 27.8 (25.6-32.2) pg MCHC 31.7 L (32.2-35.5) g/dl RDW Std Deviation 46.6 H (36.4-46.3) fL Plt Count 316 (182-369) K/mm3 MPV 9.6 (9.4-12.3) fl Sodium 141 (136-145) mEq/L Potassium 3.9 (3.5-5.1) mEq/L Chloride 105 (98-107) mEq/L Carbon Dioxide 27 (21-32) mEq/L Anion Gap 12.9 (5-15) BUN 13 (7-18) mg/dL Creatinine 0.8 (0.55-1.02) mg/dL Est Cr Clr Drug Dosing 84.54 mL/min Estimated GFR (MDRD) > 60 (>60) mL/min BUN/Creatinine Ratio 16.3 (14-18) Glucose 124 H (74-106) mg/dL Calcium 8.7 (8.5-10.1) mg/dL Total Bilirubin 0.3 (0.2-1.0) mg/dL AST 17 (15-37) U/L ALT 21 (14-59) U/L Alkaline Phosphatase 92 (46-116) U/L Total Protein 6.6 (6.4-8.2) g/dl Albumin 3.0 L (3.4-5.0) g/dl Globulin 3.6 gm/dL Albumin/Globulin Ratio 0.8 L (1-2) Med Orders - Current: Current Medications Albuterol (Proventil Neb Soln) 2.5 mg NEB Q4H PRN PRN Reason: asthma Bisacodyl (Dulcolax) 5 mg PO DAILY PRN PRN Reason: Constipation Budesonide (Pulmicort) 0.25 mg INH BID PRN PRN Reason: ashtma Cholecalciferol (Vitamin D3) 5,000 unit PO DAILY [facility] Last Admin: 11/23/18 08:03 Dose: 5,000 unit Citalopram Hydrobromide (Celexa) 20 mg PO DAILY [facility] Last Admin: 11/23/18 08:02 Dose: 20 mg Clonidine HCl (Catapres) 0.1 mg PO BID [facility] Last Admin: 11/23/18 08:03 Dose: 0.1 mg Cyclobenzaprine HCl (Flexeril) 10 mg PO TID PRN PRN Reason: Spasms Last Admin: 11/22/18 14:55 Dose: 10 mg Docusate Sodium (Colace) 100 mg PO BID [facility] Last Admin: 11/23/18 08:03 Dose: 100 mg Duloxetine HCl (Cymbalta) 60 mg PO BEDTIME [facility] Last Admin: 11/22/18 21:30 Dose: 60 mg Duloxetine HCl (Cymbalta) 30 mg PO BEDTIME [facility] Last Admin: 11/22/18 21:30 Dose: 30 mg Ketorolac Tromethamine (Toradol) 15 mg IVPUSH Q6H PRN PRN Reason: Pain Last Admin: 11/22/18 21:37 Dose: 15 mg Lorazepam (Ativan) 1 mg PO BID PRN PRN Reason: Anxiety Magnesium Hydroxide (Milk Of Magnesia) 30 ml PO BID PRN PRN Reason: Constipation Metoprolol Succinate (Toprol Xl) 25 mg PO DAILY [facility] Last Admin: 11/23/18 08:02 Dose: 25 mg Morphine Sulfate (Morphine) 2 mg IVPUSH Q2H PRN PRN Reason: Breakthrough Pain Naloxone HCl (Narcan) 0.1 mg IVPUSH Q5M PRN PRN Reason: Oversedation Ondansetron HCl (Zofran) 4 mg IVPUSH Q6H PRN PRN Reason: Nausea/Vomiting Oxycodone/Acetaminophen (Percocet 325-5 Mg) 1 - 2 tab PO Q4H PRN PRN Reason: Pain Last Admin: 11/23/18 04:13 Dose: 2 tab Pantoprazole Sodium (Protonix) 40 mg PO DAILY [facility] Last Admin: 11/23/18 08:03 Dose: 40 mg Prazosin HCl (Minpress) 1 mg PO 0700,1200,1700 [facility] Last Admin: 11/23/18 08:02 Dose: 1 mg Prazosin HCl (Minpress) 2 mg PO BEDTIME [facility] Last Admin: 11/22/18 21:31 Dose: 2 mg Rivaroxaban (Xarelto) 10 mg PO DAILY [facility] Last Admin: 11/23/18 08:03 Dose: 10 mg Senna (Senna) 8.6 mg PO BID PRN PRN Reason: Constipation Topiramate (Topamax) 50 mg PO BID [facility] Last Admin: 11/23/18 08:03 Dose: 50 mg Discontinued Medications Acetaminophen (Tylenol) 975 mg PO ONETIME [facility] Stop: 11/22/18 18:00 Last Admin: 11/22/18 06:36 Dose: 975 mg Bupivacaine HCl (Marcaine 0.25%) Confirm Administered Dose 30 ml .ROUTE .STK- MED ONE Stop: 11/22/18 06:22 Last Admin: 11/22/18 08:30 Dose: 4 ml Cefazolin Sodium (Ancef) Confirm Administered Dose 2 gm .ROUTE .STK-MED ONE Stop: 11/22/18 06:22 Last Admin: 11/22/18 07:55 Dose: 2 gm Morphine Sulfate 8 mg/Epinephrine HCl 0.3 mg/Cefuroxime Sodium 750 mg/Ketorolac Tromethamine 30 mg/Sodium Chloride 27.9 ml 0 mg .XX ONETIME ONE Stop: 11/22/18 06:46 Last Admin: 11/22/18 08:03 Dose: 788.3 mg Dexamethasone (Dexamethasone) Confirm Administered Dose 8 mg .ROUTE .STK-MED ONE Stop: 11/22/18 07:17 Diphenhydramine HCl (Benadryl) 25 mg IVPUSH Q6H PRN PRN Reason: Pruritis Stop: 11/22/18 14:00 Epinephrine HCl (Adrenalin) Confirm Administered Dose 1 mg .ROUTE .STK-MED ONE Stop: 11/22/18 07:47 Famotidine (Pepcid) 20 mg PO Q12H [facility] Last Admin: 11/23/18 06:57 Dose: 20 mg Fentanyl (Sublimaze) Confirm Administered Dose 100 mcg .ROUTE .STK-MED ONE Stop: 11/22/18 06:47 Fentanyl (Sublimaze) 50 mcg IVPUSH Q5M PRN PRN Reason: Pain Stop: 11/22/18 12:00 Fluticasone Propionate (Flonase) gm ZAK BID PRN PRN Reason: Allergies Hydromorphone HCl (Dilaudid) 0.5 mg IVPUSH Q15M PRN PRN Reason: severe pain Stop: 11/22/18 12:00 Lactated Ringer's (Ringers, Lactated) 1,000 mls @ 125 mls/hr IV ASDIRECTED TAWANNA Stop: 11/22/18 23:00 Last Admin: 11/22/18 06:20 Dose: 125 mls/hr Cefazolin Sodium/Dextrose 2 gm (/ Premix) 50 mls @ 100 mls/hr IV Q8H [facility] Stop: 11/23/18 07:29 Last Admin: 11/23/18 06:57 Dose: 100 mls/hr Lidocaine HCl (Xylocaine-Mpf 1%) Confirm Administered Dose 4 mls @ as directed .ROUTE .STK-MED ONE Stop: 11/22/18 07:12 Lactated Ringer's (Ringers, Lactated) Confirm Administered Dose 1,000 mls @ as directed .ROUTE .STK-MED ONE Stop: 11/22/18 08:22 Lactated Ringer's (Ringers, Lactated) Confirm Administered Dose 1,000 mls @ as directed .ROUTE .STK-MED ONE Stop: 11/22/18 08:23 Iodine (Iodine 2% Mild Tincture) Confirm Administered Dose 30 ml .ROUTE .STK- MED ONE Stop: 11/22/18 06:22 Last Admin: 11/22/18 07:51 Dose: 18 ml Ketamine HCl (Ketalar) Confirm Administered Dose 500 mg .ROUTE .STK-MED ONE Stop: 11/22/18 06:48 Ketorolac Tromethamine (Toradol) 30 mg IVPUSH ONETIME ONE Stop: 11/22/18 07:55 Last Admin: 11/22/18 17:12 Dose: Not Given Lamotrigine (Lamotrigine) 150 mg PO DAILY [facility] Lidocaine/Sodium Bicarbonate (Buffered Lidocaine 1% In Ns 8.4%) 0.25 ml IDERM ONETIME PRN PRN Reason: Prior to IV Start Stop: 11/22/18 18:00 Last Admin: 11/22/18 06:20 Dose: 0.25 ml Midazolam HCl (Versed 1 Mg/Ml) Confirm Administered Dose 2 mg .ROUTE .STK-MED ONE Stop: 11/22/18 06:47 Ondansetron HCl (Zofran) 4 mg IVPUSH ONETIME PRN PRN Reason: Nausea/Vomiting Stop: 11/22/18 14:00 Oxycodone HCl (Oxycontin) 10 mg PO ONETIME [facility] Stop: 11/22/18 18:00 Last Admin: 11/22/18 06:35 Dose: 10 mg Pregabalin (Lyrica) 50 mg PO ONETIME [facility] Stop: 11/22/18 18:00 Last Admin: 11/22/18 06:35 Dose: 50 mg Propofol (Diprivan 20 Ml) Confirm Administered Dose 600 mg .ROUTE .STK-MED ONE Stop: 11/22/18 06:47 Propofol (Diprivan 20 Ml) Confirm Administered Dose 200 mg .ROUTE .STK-MED ONE Stop: 11/22/18 08:14 Ropivacaine (Naropin 0.5%) Confirm Administered Dose 30 ml .ROUTE .STK-MED ONE Stop: 11/22/18 07:47 Sodium Chloride (Saline Flush) 10 ml FLUSH ASDIRECTED PRN PRN Reason: Keep Vein Open Stop: 11/22/18 18:00 Sumatriptan Succinate (Imitrex) 50 mg PO ASDIRECTED PRN PRN Reason: migraine Tranexamic Acid (Cyklokapron) Confirm Administered Dose 1,000 mg .ROUTE .STK- MED ONE Stop: 11/22/18 06:22 Last Admin: 11/22/18 08:10 Dose: 1,000 mg Triamcinolone Acetonide (Kenalog-40) Confirm Administered Dose 80 mg .ROUTE .STK -MED ONE Stop: 11/22/18 06:22 Last Admin: 11/22/18 08:30 Dose: 80 mg Triamcinolone Acetonide (Triamcinolone Acetonide 0.1% Crm) gm TOP BID [facility] Vancomycin HCl (Vancomycin) Confirm Administered Dose 1 gm .ROUTE .STK-MED ONE Stop: 11/22/18 06:22 Last Admin: 11/22/18 08:05 Dose: 1 gm
--- NOTE | 2018-11-23 08:12 | PCM48HPAN ---
Post Anesthesia Note - EVALUATION WITHIN 48HRS OF ANESTHETIC Vital Signs in Normal Range: Yes Patient Participated in Evaluation: Yes Respiratory Function Stable: Yes Airway Patent: Yes Cardiovascular Function Stable: Yes Hydration Status Stable: Yes Pain Control Satisfactory: Yes Nausea and Vomiting Control Satisfactory: Yes Mental Status Recovered: Yes Pulse Rate: 85 Resp Rate: 16 Temperature: 37.0 C Blood Pressure: 126/59
[2018-11-23 08:24] VITALS: BP 126/59
[2018-11-23] MEDS ORDERED: Citalopram 20 MG Tab PO SCH (09:00)
[2018-11-23] MEDS ORDERED: Rivaroxaban 10 MG Tab PO SCH (09:00)
[2018-11-23] MEDS ORDERED: lamoTRIgine 100 MG Tab PO SCH (09:00)
[2018-11-23] MEDS ORDERED: Cholecalciferol (Vitamin D3) 5,000 UNIT Tab PO SCH (09:00)
[2018-11-23] MEDS ORDERED: Metoprolol Succinate 25 MG Tab.ER PO SCH (09:00)
--- NOTE | 2018-11-24 14:09 | PCM.OPNOTE ---
- General Post-Op/Procedure Note Date of Surgery/Procedure: 11/22/18 Operative Procedure(s): right total knee arthroplasty with left knee corticosteroid injection Pre Op Diagnosis: bilateral knee osteoarthrosis Post-Op Diagnosis: Same Anesthesia Technique: Local, MAC, Regional Block, Spinal Primary Surgeon: Lucas Fuentes Anesthesia Provider: Catherine Sanchez Metal Bonding Worker: Conchita Tolentino Metal Bonding Worker: Karo Moncada EBL in mLs: 600 Complications: None Condition: Good Free Text/Narrative:: size 5/5 35x10
--- NOTE | 2018-11-24 14:30 | OR ---
DATE OF OPERATION: 11/22/2018 SURGEON: Lucas Fuentes MD OPERATION PERFORMED: Right total knee arthroplasty with left knee corticosteroid injection. PREOPERATIVE DIAGNOSIS: Bilateral knee osteoarthrosis. POSTOPERATIVE DIAGNOSIS: Bilateral knee osteoarthrosis. ANESTHESIA: Local MAC with spinal and regional adductor canal block. ANESTHESIA PROVIDER: Laverne Durbin. ASSISTANTS: Conchita Tolentino PA-C; and Karo Moncada LPN. ESTIMATED BLOOD LOSS: 600 mL. COMPLICATIONS: None. CONDITION: Stable. IMPLANT: 1. Pendleton size 5 press-fit CR femur. 2. Charley size 5 press-fit tibial baseplate. 3. Pendleton size 5, 9 mm CS polyethylene insert. 4. Charley size 35 x 10 mm press-fit asymmetric patella. DESCRIPTION OF PROCEDURE: The patient was identified in the preop holding area. Proper site was marked and identified by the surgeon. The patient was taken back to the operating theater. After adequate anesthesia, the patient's right lower extremity had a nonsterile tourniquet applied and it was sterilely prepped and draped in the usual sterile fashion. OR time-out was performed. The patient received 2 g IV Ancef. At this time, the right lower extremity was exsanguinated. Tourniquet was insufflated to 300 mmHg. Standard medial parapatellar incision was made. Medial parapatellar arthrotomy was created. Deep fibers of the MCL were raised and anterior fat pad was resected. At this time, attention was turned to the patella. Patella measured 26, it was resected to a 15 for a 35 x 10 mm patella. Drill holes were then drilled and found to be in adequate position. The drill was then drilled in the distal femur and the intramedullary distal femoral cutting guide was then placed. 8 mm was resected off the distal femur and was found to be an adequate resection. Sizing guide was placed. It was found to be a size 5 press-fit CR femur that was shown on the implant record at the beginning of this dictation. The drill holes were drilled for the epicondylar axis using Whitesides line and epicondyles as reference. At this time, the 4-in - 1 cutting block was placed. An anterior posterior and anterior and posterior chamfer cuts were then completed. Attention was turned to the tibia. The posterior medial lateral retractors were placed. The extramedullary tibial guide was placed. It was placed in the old footprint of the ACL. It was aligned with the center of the ankle and 0 degrees of slope, 9 mm was then resected off the unaffected side. There was found to be an acceptable reduction. At this time, posterior osteophytes were removed along with medial and lateral meniscus. A trial implant was placed with a correct sized tibia that was mentioned at the beginning of the dictation. A Pendleton size 5, 9 mm CS polyethylene insert was then placed. The patient's knee was brought through range of motion. The patella was tracking centrally and was stable to varus and valgus stress. Alignment was found to be roughly at 0 degrees. The tibia was stamped and drilled in proper rotation. The universal tibial base plate was impacted in place. Next, the Pendleton size 5 press-fit CR femur impacted into place and the Charley size 5, 9 mm CS polyethylene insert was placed. The patient's knee was brought into full extension. The patella was then press-fit in place at this time. Tourniquet was deflated. One liter dilute Betadine solution was irrigated through the knee along with 3 L of pulse lavage irrigation with Ancef. Periarticular injection was then completed. The patient's knee was brought through a range of motion. Knee was found to be stable to varus valgus stress, the patella was tracking centrally with full range of motion. At this time, a #2 barbed suture was used for closure of the medial parapatellar arthrotomy. Topical tranexamic acid was placed. 2-0 Vicryl was used subcutaneously, Prineo was used for the skin. The patient tolerated the procedure well and was sent to the PACU in stable condition. After this was completed, under sterile technique, 2 mL of 40 mg Kenalog and 4 mL of 0.25% Marcaine was injected to the left knee. GERA /[id number] LACY
== END 2018-11-23 10:29 | disposition home or self-care (01) | DRG 470 ==
LOC: JD.SDS 05:58 → JD.MS 06:04 → JD.SDS 06:50 → JD.MS 06:51
PROVIDERS: ADMIT Orthopaedic Surgery; ATTEND Orthopaedic Surgery
PROC: 0SRC0JA Replacement of Right Knee Joint with Synthetic Substitute, Uncemented, Open Approach (ICD-10-PCS; principal; 2018-11-22)
PROC: 3E0U3BZ Introduction of Anesthetic Agent into Joints, Percutaneous Approach (ICD-10-PCS; principal; 2018-11-22)
PROC: 3E0U33Z Introduction of Anti-inflammatory into Joints, Percutaneous Approach (ICD-10-PCS; principal; 2018-11-22)
PROC: 3E0T3BZ Introduction of Anesthetic Agent into Peripheral Nerves and Plexi, Percutaneous Approach (ICD-10-PCS; 2018-11-22)
DX: M17.0 Bilateral primary osteoarthritis of knee (principal); Z68.41 Body mass index [BMI] 40.0-44.9, adult; E66.9 Obesity, unspecified; I10 Essential (primary) hypertension; I83.819 Varicose veins of unspecified lower extremity with pain; G89.18 Other acute postprocedural pain; G89.29 Other chronic pain; F41.8 Other specified anxiety disorders; K21.9 Gastro-esophageal reflux disease without esophagitis; E78.5 Hyperlipidemia, unspecified; G47.00 Insomnia, unspecified; G25.81 Restless legs syndrome; F17.210 Nicotine dependence, cigarettes, uncomplicated; G43.909 Migraine, unspecified, not intractable, without status migrainosus; G62.9 Polyneuropathy, unspecified; R32 Unspecified urinary incontinence; J44.9 Chronic obstructive pulmonary disease, unspecified; K52.9 Noninfective gastroenteritis and colitis, unspecified; D64.9 Anemia, unspecified; E78.00 Pure hypercholesterolemia, unspecified; M54.16 Radiculopathy, lumbar region; L21.9 Seborrheic dermatitis, unspecified; Z88.1 Allergy status to other antibiotic agents; Z88.0 Allergy status to penicillin; Z88.2 Allergy status to sulfonamides; Z88.8 Allergy status to other drugs, medicaments and biological substances; Z79.01 Long term (current) use of anticoagulants; Z79.82 Long term (current) use of aspirin; Z87.440 Personal history of urinary (tract) infections; Z79.899 Other long term (current) drug therapy; Z86.718 Personal history of other venous thrombosis and embolism; Z91.5 Personal history of self-harm
CPT/HCPCS: 36415; 73560-26-RT; 73560-RT; 80053; 85027; 87641; 97110-GP; 97116-GP; 97161-GP; 97165-GO; 97530-GO; 97535-GO; A9270-GY; C1776; J0171; J0690; J0697; J1100; J1885; J2001; J2250; J2270; J2704; J2795; J3010; J3301; J3370; J3490; J7120

== ENCOUNTER 2019-07-18 06:33 | Inpatient (IN) | payer MEDICAID ==
[~2019-07-18 06:33] MED LIST changes: +Acetaminophen 325 MG Tab PO SCH; +Pregabalin 25 MG Cap PO SCH; +oxyCODONE ER 10 MG TAB.ER PO SCH
[2019-07-18] MEDS ORDERED: Naloxone 0.4 MG/ML SDV IVPUSH PRN (06:54)
[2019-07-18] MEDS ORDERED: Morphine 2 MG/ML Syringe IVPUSH PRN (06:54)
[2019-07-18] MEDS ORDERED: Ondansetron 4 MG/2 ML SDV IVPUSH PRN (06:54)
--- NOTE | 2019-07-18 07:22 | PCM.CONS ---
H&P History of Present Illness - General Date of Service: 07/18/19 Admit Problem/Dx: Admission Diagnosis/Problem Admission Diagnosis/Problem Osteoarthritis of knee Source of Information: Patient, Provider, RN, RN Notes Reviewed History Limitations: Reports: No Limitations - History of Present Illness Initial Comments - Free Text/Narative: Kiel Chen is a 49 yo female patient of Dr. Fuentes who is post-operative day 0 of left TKA. Hospital medicine was consulted for post-operative medical care of the following listed medical conditions. At this time she is resting comfortably in bed. Pain is controlled. She denies any chest pain, shortness of breath, palpitations, nausea, or vomiting. She carries a history of: HTN, Headaches, Anxiety, GERD, HLD, Irregular HR, Edema, COPD, Recurrent Bronchitis, Urinary incontinence, recurrent UTIs, menorrhagia, osteoarthritis, RLS, Peripheral neuropathy, Chronic diarrhea, PTSD, depression, Vitamin D deficiency , B12 deficiency, Anemia, eczema, DVT in 2014, Allergic rhinitis, Suicide attempt, varicose venins, Asthma. She was never a smoker. She is a full code. Her primary care provider is Cara Miguel NP. Left Knee Pain Score (Numeric/FACES): 4 - Related Data Allergies/Adverse Reactions: Allergies Allergy/AdvReac Type Severity Reaction Status Date / Time adhesive tape Allergy Rash Verified 07/13/19 15:41 amoxicillin trihydrate Allergy Hives Verified 07/13/19 15:41 [From Augmentin] cephalexin Allergy Itching Verified 07/13/19 15:41 Penicillins Allergy Hives Verified 07/13/19 15:41 potassium clavulanate Allergy Hives Verified 07/13/19 15:41 [From Augmentin] Sulfa (Sulfonamide Allergy Hives Verified 07/13/19 15:41 Antibiotics) venlafaxine [From Effexor] Allergy Other Verified 07/13/19 15:41 Home Medications: Home Meds LORazepam [Ativan] 1 mg PO BID PRN 04/16/14 [History] Omeprazole 20 mg PO DAILY 04/16/14 [History] Citalopram [Citalopram HBr] 20 mg PO DAILY 11/19/18 [History] DULoxetine HCl [Duloxetine HCl] 60 mg PO BEDTIME 11/19/18 [History] Prazosin HCl [Prazosin] 1 mg PO QID 11/19/18 [History] Prazosin HCl [Prazosin] 3 mg PO BEDTIME 11/19/18 [History] SUMAtriptan [Imitrex] 50 mg PO ASDIRECTED PRN 11/19/18 [History] Topiramate 50 mg PO BID 11/19/18 [History] Triamcinolone Acetonide [Triamcinolone Acetonide 0.1% Crm] 1 dose TOP BID PRN [History] lamoTRIgine [Lamotrigine] 150 mg PO DAILY 11/19/18 [History] Aspirin 81 mg PO DAILY 11/22/18 [History] DULoxetine [Cymbalta] 30 mg PO BEDTIME 11/22/18 [History] Cyclobenzaprine [Flexeril] 10 mg PO BEDTIME PRN 03/24/19 [History] Ondansetron [Zofran ODT] 4 mg PO Q8H PRN 03/24/19 [History] cloNIDine [Catapres] 0.1 mg PO BID 03/24/19 [History] Cholecalciferol (Vitamin D3) [Vitamin D3] 5,000 unit PO DAILY 07/13/19 [History] Fluticasone Propionate [Flovent HFA] 1 dose INH BID PRN 07/13/19 [History] Metoprolol Succinate 25 mg PO DAILY 07/18/19 [History] Omeprazole Magnesium [Prilosec Otc] 20 mg PO DAILY 07/18/19 [History] Past Medical History HEENT History: Reports: Allergic Rhinitis Other HEENT History: eustachian tube dysfunction, pharyngitis, sore throat Cardiovascular History: Reports: Blood Clots/VTE/DVT, Hypertension Other Cardiovascular History: chest pain, fluttering sensation, irregular heart rate, leg swelling, DVT, varicose veins Respiratory History: Reports: Asthma, Bronchitis, Recurrent, COPD Other Respiratory History: cough, pharyngitis - Severe Snoring Gastrointestinal History: Reports: GERD Other Gastrointestinal History: nausea vomitting Genitourinary History: Reports: Urinary Incontinence, Other (See Below) Other Genitourinary History: UTI, pelvic pain 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: , Other (See Below) Other OB/BYN History: breast lump, menorrhagia, hot flashes, postcoital bleeding Musculoskeletal History: Reports: Back Pain, Chronic, Neck Pain, Chronic, Osteoarthritis Other Musculoskeletal History: restless leg syndrome, ac joint bone spurs, R biceps tendonitis, R shoulder pain, R rotator cuff tear, knee tear, patellar relalingment syndrome Neurological History: Reports: Headaches, Chronic, Migraines, Neuropathy, Peripheral, Vertigo Other Neuro History: fatigue, insomnia Psychiatric History: Reports: Anxiety, Depression, PTSD Endocrine/Metabolic History: Reports: Obesity/BMI 30+, Vitamin D Deficiency Hematologic History: Reports: Anticoagulation Therapy, Idiopathic Thrombocytopenia, Other (See Below) Other Hematologic History: hypovitaminosis vitamin D, post thromotic syndrome, bone marrow edema Immunologic History: Reports: None Oncologic (Cancer) History: Reports: None Dermatologic History: Reports: Eczema, Seborrheic Dermatitis Other Dermatologic History: ecezma, varicose veins, folliculitis - Infectious Disease History Infectious Disease History: Reports: Chicken Pox - Past Surgical History Head Surgeries/Procedures: Reports: None HEENT Surgical History: Reports: Myringotomy w Tube(s) Other HEENT Surgeries/Procedures: oral surgery with teeth extraction, ear pressure equalization tube Cardiovascular Surgical History: Reports: None Respiratory Surgical History: Reports: None GI Surgical History: Reports: None Female Surgical History: Reports: Oophorectomy, Tubal Ligation Other Female Surgeries/Procedures: L) oophrectomy, ablation Endocrine Surgical History: Reports: None Neurological Surgical History: Reports: None Musculoskeletal Surgical History: Reports: Arthroscopic Procedure, Shoulder Surgery Other Musculoskeletal Surgeries/Procedures:: right knee arhtroscopy, bilateral shoulder arthroscopy, right total knee replacement Oncologic Surgical History: Reports: Bone Marrow Transplant Social & Family History - Family History Family Medical History: Noncontributory - Tobacco Use Smoking Status *Q: Never Smoker Second Hand Smoke Exposure: No - Caffeine Use Caffeine Use: Reports: Soda - Recreational Drug Use Recreational Drug Use: No Drug Use in Last 12 Months: No - Living Situation & Occupation Living situation: Reports: , with Family Occupation: Unemployed H&P Review of Systems - Review of Systems: Review Of Systems: See Below General: Reports: No Symptoms. Denies: Fever, Chills HEENT: Reports: No Symptoms. Denies: Headaches, Sore Throat Pulmonary: Reports: No Symptoms. Denies: Shortness of Breath, Wheezing, Pleuritic Chest Pain, Cough, Sputum Cardiovascular: Reports: No Symptoms. Denies: Chest Pain, Palpitations, Dyspnea on Exertion Gastrointestinal: Reports: No Symptoms. Denies: Abdominal Pain, Constipation, Diarrhea, Nausea, Vomiting Genitourinary: Reports: No Symptoms. Denies: Pain Musculoskeletal: Reports: Leg Pain Skin: Reports: No Symptoms. Denies: Cyanosis Psychiatric: Reports: No Symptoms. Denies: Confusion Neurological: Reports: No Symptoms Hematologic/Lymphatic: Reports: No Symptoms Immunologic: Reports: No Symptoms Exam - Exam Exam: See Below - Vital Signs Vital Signs: Last Vital Signs Temp 97.8 F 07/18/19 06:50 Pulse 87 07/18/19 06:50 Resp 16 07/18/19 06:50 BP 144/79 H 07/18/19 06:50 Pulse Ox 96 07/18/19 06:50 Weight: 241 lb - Exam Quality Assessment: DVT Prophylaxis General: Alert, Oriented, Cooperative. No: Mild Distress HEENT: Conjunctiva Clear, EACs Clear, EOMI, Hearing Intact, Mucosa Moist & [place] , Nares Patent, Normal Nasal Septum, Posterior Pharynx Clear, PERRLA Neck: Supple, Trachea Midline Lungs: Clear to Auscultation, Normal Respiratory Effort Cardiovascular: Regular Rate, Regular Rhythm GI/Abdominal Exam: Normal Bowel Sounds, Soft, Non-Tender, No Distention, No Abnormal Bruit (Female) Exam: Deferred Rectal (Female) Exam: Deferred Back Exam: Normal Inspection, Full Range of Motion Extremities: No Pedal Edema, Normal Capillary Refill, Leg Pain, Limited Range of Motion, Other (Bandage in place on left leg. Bandage is dry and intact. Cooling pack in place. ) Peripheral Pulses: 2+: Radial (L), Radial (R), Dorsalis Pedis (L), Dorsalis Pedis (R) Skin: Warm, Dry, Intact Neurological: Cranial Nerves Intact (Grossly ) Neuro Extensive - Mental Status: Alert, Oriented x3, Normal Mood/Affect Consult PN Assessment/Plan POD#: 0 Procedures: Procedures AIRWAY INHALATION TREATMENT (07/01/16) ANTITHROMBIN III ACTIVITY (01/21/15) ASSAY OF CK (CPK) (04/27/15) ASSAY OF FREE THYROXINE (05/12/18) ASSAY OF GONADOTROPIN (FSH) (02/23/17) ASSAY OF GONADOTROPIN (LH) (02/23/17) ASSAY OF HOMOCYSTINE (01/21/15) ASSAY OF IRON (05/14/15) ASSAY OF MAGNESIUM (05/18/14) ASSAY OF MYOGLOBIN (04/27/15) ASSAY OF NATRIURETIC PEPTIDE (07/11/14) ASSAY OF PREALBUMIN (11/17/18) ASSAY OF SERUM ALBUMIN (07/04/19) ASSAY OF SERUM POTASSIUM (01/31/16) ASSAY OF TRANSFERRIN (05/14/15) ASSAY OF TROPONIN QUANT (04/21/15) ASSAY THYROID STIM HORMONE (05/12/18) C-REACTIVE PROTEIN (03/29/15) CHEST X-RAY 1 VIEW FRONTAL (07/11/14) CHEST X-RAY 2VW FRONTAL&LATL (06/25/16) CHORIONIC GONADOTROPIN ASSAY (03/21/15) CHORIONIC GONADOTROPIN TEST (02/23/17) CLOT INHIBIT PROT C ACTIVITY (01/21/15) CLOT INHIBIT PROT S FREE (01/21/15) COMP SCREEN MAMMOGRAM ADD-ON (12/31/15) COMPLETE CBC AUTOMATED (05/14/15) COMPLETE CBC W/AUTO DIFF WBC (03/24/19) COMPREHEN METABOLIC PANEL (03/24/19) COMPUTER DX MAMMOGRAM ADD-ON (12/25/14) CREATINE MB FRACTION (04/21/15) CT ABD & PELV W/CONTRAST (05/31/17) CT ANGIOGRAPHY CHEST (07/11/14) CT HEAD/BRAIN W/O DYE (02/18/18) CT NECK SPINE W/O DYE (03/24/19) CULTURE OTHR SPECIMN AEROBIC (02/08/19) ECG MONIT/REPRT UP TO 48 HRS (07/17/14) ECG MONIT/REPRT UP TO 48 HRS (07/17/14) ELECTROCARDIOGRAM TRACING (04/21/15) EMERGENCY DEPT VISIT (03/24/19) EMERGENCY DEPT VISIT (11/26/17) EMERGENCY DEPT VISIT (05/31/17) EMERGENCY DEPT VISIT (07/06/16) EMERGENCY DEPT VISIT (07/11/15) EMERGENCY DEPT VISIT (05/07/15) EMERGENCY DEPT VISIT (04/21/15) EMERGENCY DEPT VISIT (03/29/15) EMERGENCY DEPT VISIT (03/04/15) EMERGENCY DEPT VISIT (07/11/14) EMERGENCY DEPT VISIT (05/14/14) EVALUATE PT USE OF INHALER (07/01/16) EXTREMITY STUDY (04/18/16) EXTREMITY STUDY (03/27/15) EXTREMITY STUDY (03/04/15) F2 GENE (01/21/15) F5 GENE (01/21/15) FIBRIN DEGRADATION QUANT (04/21/15) GLYCOSYLATED HEMOGLOBIN TEST (01/10/16) HYDRATE IV INFUSION ADD-ON (11/26/17) HYDRATION IV INFUSION INIT (07/11/14) HYSTEROSCOPY BIOPSY (06/20/15) INSERT BLADDER CATHETER (12/14/14) KNEE ARTHROSCOPY/SURGERY (07/19/15) KNEE ARTHROSCOPY/SURGERY (07/19/15) LAPAROSCOPY EXCISE LESIONS (06/20/15) LIPID PANEL (11/05/17) METABOLIC PANEL TOTAL CA (07/04/19) MICROBE SUSCEPTIBLE NIURKA (04/11/16) MR-STAPH DNA AMP PROBE (06/18/16) MRI JNT OF LWR EXTRE W/O DYE (05/09/16) MRI JOINT UPR EXTREM W/O DYE (06/17/16) PROTHROMBIN TIME (07/04/19) PT EVAL LOW COMPLEX 20 MIN (05/15/17) REPAIR OF BICEPS TENDON (07/01/16) REPAIR ROTATOR CUFF CHRONIC (07/01/16) ROUTINE VENIPUNCTURE (03/24/19) SHOULDER ARTHROSCOPY/SURGERY (07/01/16) SHOULDER ARTHROSCOPY/SURGERY (07/01/16) SHOULDER ARTHROSCOPY/SURGERY (07/01/16) SHOULDER ARTHROSCOPY/SURGERY (01/02/15) SMEAR WET [place] SALINE/INK (02/08/19) THER/PROPH/DIAG INJ IV PUSH (03/24/19) THER/PROPH/DIAG INJ SC/IM (11/26/17) THERAPEUTIC EXERCISES (06/03/17) THROMBOPLASTIN TIME PARTIAL (11/17/18) TISSUE EXAM BY PATHOLOGIST (06/20/15) TRANSVAGINAL US NON-OB (02/15/19) TRICHOMONAS ASSAY W/OPTIC (02/08/19) TX/PRO/DX INJ NEW DRUG ADDON (03/24/19) TX/PRO/DX INJ SAME DRUG DRAFTER (CAD) ELECTRICAL (12/14/14) ULTRASOUND BREAST COMPLETE (12/29/14) ULTRASOUND THERAPY (06/03/17) UR ALBUMIN SEMIQUANTITATIVE (01/10/16) URINALYSIS AUTO W/SCOPE (03/29/15) URINE BACTERIA CULTURE (04/11/16) URINE CULTURE/COLONY COUNT (07/04/19) URINE TEST (07/19/15) US EXAM PELVIC COMPLETE (12/14/14) VITAMIN B-12 (11/05/17) VITAMIN D 25 HYDROXY (11/05/17) X-RAY EXAM CHEST 2 VIEWS (07/04/19) X-RAY EXAM HIP UNI 2-3 VIEWS (10/14/18) X-RAY EXAM KNEE 4 OR MORE (04/20/19) X-RAY EXAM L-S SPINE 2/3 VWS (03/24/19) X-RAY EXAM OF ANKLE (01/05/17) X-RAY EXAM OF FINGER(S) (06/07/19) X-RAY EXAM OF FOOT (11/04/17) X-RAY EXAM OF KNEE 1 OR 2 (02/25/18) X-RAY EXAM OF KNEE 3 (05/23/16) X-RAY EXAM OF LOWER LEG (07/11/15) X-RAY EXAM OF SHOULDER (04/16/16) X-RAY EXAM OF SHOULDER (12/29/13) X-RAY EXAM OF SKULL (06/17/16) X-RAY EXAM OF WRIST (03/19/17) (1) S/P total knee arthroplasty SNOMED Code(s): 7613625849290, 392910620, 5987596704694 Code(s): Z96.659 - PRESENCE OF UNSPECIFIED ARTIFICIAL KNEE JOINT Priority: High Current Visit: Yes Qualifiers: Laterality: left Qualified Code(s): Z96.652 - Presence of left artificial knee joint (2) Anemia SNOMED Code(s): 881451066 Code(s): D64.9 - ANEMIA, UNSPECIFIED Priority: Medium Current Visit: No Qualifiers: Anemia type: unspecified type Qualified Code(s): D64.9 - Anemia, unspecified (3) Anxiety SNOMED Code(s): 70013893 Code(s): F41.9 - ANXIETY DISORDER, UNSPECIFIED Priority: Low Current Visit: No (4) Asthma SNOMED Code(s): 270732481 Code(s): J45.909 - UNSPECIFIED ASTHMA, UNCOMPLICATED Priority: Medium Current Visit: No Qualifiers: Asthma severity: unspecified severity Asthma persistence: unspecified Asthma complication type: unspecified Qualified Code(s): J45.909 - Unspecified asthma, uncomplicated (5) COPD (chronic obstructive pulmonary disease) SNOMED Code(s): 72778773 Code(s): J44.9 - CHRONIC OBSTRUCTIVE PULMONARY DISEASE, UNSPECIFIED Priority: Medium Current Visit: No Qualifiers: COPD type: unspecified COPD Qualified Code(s): J44.9 - Chronic obstructive pulmonary disease, unspecified (6) Chronic diarrhea SNOMED Code(s): 371460239 Code(s): K52.9 - NONINFECTIVE GASTROENTERITIS AND COLITIS, UNSPECIFIED Priority: Low Current Visit: No (7) Chronic headache SNOMED Code(s): 035542791 Code(s): R51 - HEADACHE Priority: Low Current Visit: No Qualifiers: Headache type: unspecified Intractability: intractable Qualified Code(s) : R51 - Headache (8) Eczema SNOMED Code(s): 16613260 Code(s): L30.9 - DERMATITIS, UNSPECIFIED Priority: Low Current Visit: No Qualifiers: Eczema type: unspecified Qualified Code(s): L30.9 - Dermatitis, unspecified (9) GERD (gastroesophageal reflux disease) SNOMED Code(s): 208173572 Code(s): K21.9 - GASTRO-ESOPHAGEAL REFLUX DISEASE WITHOUT ESOPHAGITIS Priority: Low Current Visit: No Qualifiers: Esophagitis presence: esophagitis presence not specified Qualified Code(s) : K21.9 - Gastro-esophageal reflux disease without esophagitis (10) HLD (hyperlipidemia) SNOMED Code(s): 96505676 Code(s): E78.5 - HYPERLIPIDEMIA, UNSPECIFIED Priority: Low Current Visit : No Qualifiers: Hyperlipidemia type: unspecified Qualified Code(s): E78.5 - Hyperlipidemia , unspecified (11) HTN (hypertension) SNOMED Code(s): 11090040 Code(s): I10 - ESSENTIAL (PRIMARY) HYPERTENSION Priority: Medium Current Visit: No Qualifiers: Hypertension type: unspecified Qualified Code(s): I10 - Essential (primary ) hypertension (12) History of deep venous thrombosis or pulmonary embolus SNOMED Code(s): 375007942 Code(s): [id number] - Priority: Medium Current Visit: No (13) History of suicide attempt SNOMED Code(s): 296879558, 997230228 Code(s): Z91.5 - PERSONAL HISTORY OF SELF-HARM Priority: Low Current Visit: No (14) Osteoarthritis SNOMED Code(s): 322705019 Code(s): M19.90 - UNSPECIFIED OSTEOARTHRITIS, UNSPECIFIED SITE Priority: High Current Visit: No Qualifiers: Osteoarthritis location: knee Osteoarthritis type: primary Laterality: bilateral Qualified Code(s): M17.0 - Bilateral primary osteoarthritis of knee (15) PTSD (post-traumatic stress disorder) SNOMED Code(s): 65278066 Code(s): F43.10 - POST-TRAUMATIC STRESS DISORDER, UNSPECIFIED Priority: Medium Current Visit: No (16) Peripheral neuropathy SNOMED Code(s): 853251978 Code(s): G62.9 - POLYNEUROPATHY, UNSPECIFIED Priority: Medium Current Visit: No Qualifiers: Peripheral neuropathy type: polyneuropathy, unspecified Qualified Code(s): G62.9 - Polyneuropathy, unspecified (17) RLS (restless legs syndrome) SNOMED Code(s): 69911983 Code(s): G25.81 - RESTLESS LEGS SYNDROME Priority: Low Current Visit: No (18) Depression SNOMED Code(s): 48638145 Code(s): F32.9 - MAJOR DEPRESSIVE DISORDER, SINGLE EPISODE, UNSPECIFIED Priority: Low Current Visit: No Qualifiers: Depression Type: other depression Qualified Code(s): F32.89 - Other specified depressive episodes Problem List Initiated/Reviewed/Updated: Yes Plan: I/P: Acute: S/P left total knee arthroplasty - post-operative day 0 -DVT prophylaxis and pain management per primary care team -PT/OT -IS/RT -Monitor oxygen saturation -Titrate oxygen as needed -Home medications reviewed -Vital signs stable -Monitor labs -Pre-operative Hgb was 12.7 -Pre-operative GFR was 53 Osteoarthritis of left knee -Pain management per primary care team Chronic: HTN Headaches Anxiety GERD HLD Irregular HR Edema COPD Recurrent Bronchitis Urinary incontinence Recurrent UTIs Menorrhagia Osteoarthritis, RLS Peripheral neuropathy Chronic diarrhea PTSD Depression Vitamin D deficiency B12 deficiency Anemia Eczema DVT in 2014 Allergic rhinitis Hx/o Suicide attempt Varicose venins Asthma Plan: CM for discharge planning GI prophylaxis Home medications as indicated Other orders as listed above Routine AM labs She is a full code. Her PCP is Cara Miguel NP Thank you for allowing us to participate in the care of this patient!! Requesting Provider: Dr. Fuentes Date Consult Requested: 07/18/19 Patient History Reviewed: Yes Admission H&P Reviewed: Yes
[2019-07-18] MEDS ORDERED: EPINEPHrine 1 MG/ML SDV ONE (07:42)
[2019-07-18] MEDS ORDERED: Ropivacaine 0.5% 5 MG/ML 30 ML SDV ONE (07:42)
[2019-07-18] MEDS ORDERED: Lidocaine 1% 4 ML ONE (07:42)
[2019-07-18] MEDS ORDERED: Propofol 200 MG/20 ML SDV ONE ×2 (07:43→09:19)
[2019-07-18] MEDS ORDERED: Morphine PF 10 MG/10 ML SDV ONE (07:43)
[2019-07-18] MEDS ORDERED: Lidocaine 1%/Sod Bicarbonate in NS 8.4% 1 ML Syringe IDERM PRN (07:54)
[2019-07-18] MEDS ORDERED: Sodium Chloride 0.9% 10 ML Syringe FLUSH PRN (07:54)
[2019-07-18] MEDS ORDERED: Famotidine 20 MG/2 ML SDV IVPUSH ONE (07:54)
--- NOTE | 2019-07-18 07:56 | PCM.PREANE ---
Preanesthetic Assessment - Procedure Proposed Procedure: Left TKA - Anesthesia/Transfusion/Family Hx Anesthesia History: Prior Anesthesia Without Reaction Family History of Anesthesia Reaction: No Transfusion History: Prior Transfusion Reaction - Review of Systems General: No Symptoms Pulmonary: No Symptoms Cardiovascular: No Symptoms Neurological: No Symptoms Other: Reports: None - Physical Assessment NPO Status Date: 07/17/19 NPO Status Time: 22:30 Vital Signs: Last Vital Signs Temp 36.6 C 07/18/19 06:50 Pulse 87 07/18/19 06:50 Resp 16 07/18/19 06:50 BP 144/79 H 07/18/19 06:50 Pulse Ox 96 07/18/19 06:50 Height: 5 ft 7 in Weight: 109.316 kg ASA Class: 2 Mental Status: Alert & Oriented x3 ROM/Head Extension: Full Lungs: Clear to Auscultation, Normal Respiratory Effort Cardiovascular: Regular Rate (beta blocked), Regular Rhythm - Lab Values: Laboratory Last Values MRSA (PCR) Negative 07/06/19 13:22 - Allergies Allergies/Adverse Reactions: Allergies Allergy/AdvReac Type Severity Reaction Status Date / Time adhesive tape Allergy Rash Verified 07/13/19 15:41 amoxicillin trihydrate Allergy Hives Verified 07/13/19 15:41 [From Augmentin] cephalexin Allergy Itching Verified 07/13/19 15:41 Penicillins Allergy Hives Verified 07/13/19 15:41 potassium clavulanate Allergy Hives Verified 07/13/19 15:41 [From Augmentin] Sulfa (Sulfonamide Allergy Hives Verified 07/13/19 15:41 Antibiotics) venlafaxine [From Effexor] Allergy Other Verified 07/13/19 15:41 - Blood Blood Available: Yes - Anesthesia Plan Pre-Op Medication Ordered: Antacids Beta Vika: Metoprolol Med Last Dose Time: 04:30 - Acknowledgements Anesthesia Type Planned: Spinal Pt an Appropriate Candidate for the Planned Anesthesia: Yes Alternatives and Risks of Anesthesia Discussed w Pt/Guardian: Yes Pt/Guardian Understands and Agrees with Anesthesia Plan: Yes PreAnesthesia Questionnaire HEENT History: Reports: Allergic Rhinitis Other HEENT History: eustachian tube dysfunction, pharyngitis, sore throat Cardiovascular History: Reports: Blood Clots/VTE/DVT, Hypertension Other Cardiovascular History: chest pain, fluttering sensation, irregular heart rate, leg swelling, DVT, varicose veins Respiratory History: Reports: Asthma, Bronchitis, Recurrent, COPD Other Respiratory History: cough, pharyngitis - Severe Snoring Gastrointestinal History: Reports: GERD Other Gastrointestinal History: nausea vomitting Genitourinary History: Reports: Urinary Incontinence, Other (See Below) Other Genitourinary History: UTI, pelvic pain [employer]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: , Other (See Below) Other OB/BYN History: breast lump, menorrhagia, hot flashes, postcoital bleeding Musculoskeletal History: Reports: Back Pain, Chronic, Neck Pain, Chronic, Osteoarthritis Other Musculoskeletal History: restless leg syndrome, ac joint bone spurs, R biceps tendonitis, R shoulder pain, R rotator cuff tear, knee tear, patellar relalingment syndrome Neurological History: Reports: Headaches, Chronic, Migraines, Neuropathy, Peripheral, Vertigo Other Neuro History: fatigue, insomnia Psychiatric History: Reports: Anxiety, Depression, PTSD Endocrine/Metabolic History: Reports: Obesity/BMI 30+, Vitamin D Deficiency Hematologic History: Reports: Anticoagulation Therapy, Idiopathic Thrombocytopenia, Other (See Below) Other Hematologic History: hypovitaminosis vitamin D, post thromotic syndrome, bone marrow edema Immunologic History: Reports: None Oncologic (Cancer) History: Reports: None Dermatologic History: Reports: Eczema, Seborrheic Dermatitis Other Dermatologic History: ecezma, varicose veins, folliculitis - Infectious Disease History Infectious Disease History: Reports: Chicken Pox - Past Surgical History Head Surgeries/Procedures: Reports: None HEENT Surgical History: Reports: Myringotomy w Tube(s) Other HEENT Surgeries/Procedures: oral surgery with teeth extraction, ear pressure equalization tube Cardiovascular Surgical History: Reports: None Respiratory Surgical History: Reports: None GI Surgical History: Reports: None Female Surgical History: Reports: Oophorectomy, Tubal Ligation Other Female Surgeries/Procedures: L) oophrectomy, ablation Endocrine Surgical History: Reports: None Neurological Surgical History: Reports: None Musculoskeletal Surgical History: Reports: Arthroscopic Procedure, Shoulder Surgery Other Musculoskeletal Surgeries/Procedures:: right knee arhtroscopy, bilateral shoulder arthroscopy, right total knee replacement Oncologic Surgical History: Reports: Bone Marrow Transplant - SUBSTANCE USE Smoking Status *Q: Never Smoker Second Hand Smoke Exposure: No Recreational Drug Use History: No - HOME MEDS Home Medications: Home Meds LORazepam [Ativan] 1 mg PO BID PRN 04/16/14 [History] Omeprazole 20 mg PO DAILY 04/16/14 [History] Citalopram [Citalopram HBr] 20 mg PO DAILY 11/19/18 [History] DULoxetine HCl [Duloxetine HCl] 60 mg PO BEDTIME 11/19/18 [History] Prazosin HCl [Prazosin] 1 mg PO QID 11/19/18 [History] Prazosin HCl [Prazosin] 3 mg PO BEDTIME 11/19/18 [History] SUMAtriptan [Imitrex] 50 mg PO ASDIRECTED PRN 11/19/18 [History] Topiramate 50 mg PO BID 11/19/18 [History] Triamcinolone Acetonide [Triamcinolone Acetonide 0.1% Crm] 1 dose TOP BID PRN [History] lamoTRIgine [Lamotrigine] 150 mg PO DAILY 11/19/18 [History] Aspirin 81 mg PO DAILY 11/22/18 [History] DULoxetine [Cymbalta] 30 mg PO BEDTIME 11/22/18 [History] Cyclobenzaprine [Flexeril] 10 mg PO BEDTIME PRN 03/24/19 [History] Ondansetron [Zofran ODT] 4 mg PO Q8H PRN 03/24/19 [History] cloNIDine [Catapres] 0.1 mg PO BID 03/24/19 [History] Cholecalciferol (Vitamin D3) [Vitamin D3] 5,000 unit PO DAILY 07/13/19 [History] Fluticasone Propionate [Flovent HFA] 1 dose INH BID PRN 07/13/19 [History] Metoprolol Succinate 25 mg PO DAILY 07/18/19 [History] Omeprazole Magnesium [Prilosec Otc] 20 mg PO DAILY 07/18/19 [History] - CURRENT (IN HOUSE) MEDS Current Meds: Current Medications Acetaminophen (Tylenol) 975 mg PO ONETIME [place] Stop: 07/18/19 16:00 Last Admin: 07/18/19 07:09 Dose: 975 mg Bisacodyl (Dulcolax) 5 mg PO DAILY PRN PRN Reason: Constipation Morphine Sulfate 8 mg/Epinephrine HCl 0.3 mg/Cefuroxime Sodium 750 mg/Ketorolac Tromethamine 30 mg/Sodium Chloride 27.9 ml 0 mg .XX ONETIME ONE Stop: 07/18/19 08:31 Cyclobenzaprine HCl (Flexeril) 10 mg PO BID PRN PRN Reason: Spasms Docusate Sodium (Colace) 100 mg PO BID [place] Famotidine (Pepcid) 20 mg PO Q12H [facility] Lactated Ringer's (Ringers, Lactated) 1,000 mls @ 125 mls/hr IV ASDIRECTED [facility] Stop: 07/18/19 23:00 Last Admin: 07/18/19 07:18 Dose: 125 mls/hr Cefazolin Sodium/Dextrose 2 gm (/ Premix) 50 mls @ 100 mls/hr IV Q8H [facility] Stop: 07/18/19 23:29 Ketorolac Tromethamine (Toradol) 15 mg IVPUSH Q6H PRN PRN Reason: Pain Lidocaine/Sodium Bicarbonate (Buffered Lidocaine 1% In Ns 8.4%) 0.25 ml IDERM ONETIME PRN PRN Reason: Prior to IV Start Stop: 07/18/19 18:00 Last Admin: 07/18/19 07:18 Dose: 0.25 ml Magnesium Hydroxide (Milk Of Magnesia) 30 ml PO BID PRN PRN Reason: Constipation Morphine Sulfate (Morphine) 2 mg IVPUSH Q2H PRN PRN Reason: Breakthrough Pain Naloxone HCl (Narcan) 0.1 mg IVPUSH Q5M PRN PRN Reason: Oversedation Ondansetron HCl (Zofran) 4 mg IVPUSH Q6H PRN PRN Reason: Nausea/Vomiting Oxycodone HCl (Oxycontin) 10 mg PO ONETIME [facility] Stop: 07/18/19 16:00 Last Admin: 07/18/19 07:09 Dose: 10 mg Oxycodone/Acetaminophen (Percocet 325-5 Mg) 1 - 2 tab PO Q4H PRN PRN Reason: Pain Pregabalin (Lyrica) 50 mg PO ONETIME [facility] Stop: 07/18/19 16:00 Last Admin: 07/18/19 07:09 Dose: 50 mg Rivaroxaban (Xarelto) 10 mg PO DAILY [facility] Senna (Senna) 8.6 mg PO BID PRN PRN Reason: Constipation Sodium Chloride (Saline Flush) 10 ml FLUSH ASDIRECTED PRN PRN Reason: Keep Vein Open Stop: 07/18/19 18:00 Discontinued Medications Bupivacaine HCl (Sensorcaine-Mpf 0.25%) Confirm Administered Dose 30 ml .ROUTE .STK-MED ONE Stop: 07/18/19 07:12 Cefazolin Sodium (Ancef) Confirm Administered Dose 2 gm .ROUTE .STK-MED ONE Stop: 07/18/19 07:12 Epinephrine HCl (Adrenalin) Confirm Administered Dose 1 mg .ROUTE .STK-MED ONE Stop: 07/18/19 07:43 Lidocaine HCl (Xylocaine-Mpf 1%) Confirm Administered Dose 4 mls @ as directed .ROUTE .STK-MED ONE Stop: 07/18/19 07:43 Iodine (Iodine 2% Mild Tincture) Confirm Administered Dose 30 ml .ROUTE .STK- MED ONE Stop: 07/18/19 07:12 Morphine Sulfate (Duramorph Pf) Confirm Administered Dose 10 mg .ROUTE .STK-MED ONE Stop: 07/18/19 07:44 Propofol (Diprivan 20 Ml) Confirm Administered Dose 400 mg .ROUTE .STK-MED ONE Stop: 07/18/19 07:44 Ropivacaine (Naropin 0.5%) Confirm Administered Dose 30 ml .ROUTE .STK-MED ONE Stop: 07/18/19 07:43 Tranexamic Acid (Cyklokapron) Confirm Administered Dose 1,000 mg .ROUTE .STK- MED ONE Stop: 07/18/19 07:12 Vancomycin HCl (Vancomycin) Confirm Administered Dose 1 gm .ROUTE .STK-MED ONE Stop: 07/18/19 07:12
[2019-07-18] MEDS ORDERED: Lactated Ringers 1,000 ML IV SCH (08:00)
[2019-07-18] MEDS ORDERED: ceFAZolin 1 GM Vial ONE (08:31)
[2019-07-18] MEDS: ceFAZolin 1 GM Vial ONE ×2 (09:21→09:37)
[2019-07-18] MEDS: Iodine/Sodium Iodide 2% Tincture 30 ML Bottle ONE ×2 (09:21→09:35)
[2019-07-18] MEDS: Morphine 8 MG, EPINEPHrine 0.3 MG, Cefuroxime 750 MG, Ketorolac 30 MG, Sodium Chloride ... ONE ×15 (09:22→14:53)
[2019-07-18] MEDS: Bupivacaine 0.25% 10 ML SDV ONE ×3 (09:22→09:43)
[2019-07-18] MEDS: Vancomycin 1 GM SDV ONE ×3 (09:23→09:45)
[2019-07-18] MEDS ORDERED: ePHEDrine/Normal Saline 25 MG/5 ML Syringe ONE (09:36)
--- NOTE | 2019-07-18 10:44 | PCM.POSTAN ---
POST ANESTHESIA ASSESSMENT - MENTAL STATUS Mental Status: Alert, Oriented - VITAL SIGNS Vital Signs: Last Vital Signs Temp 36.6 C 07/18/19 10:30 Pulse 72 07/18/19 10:30 Resp 13 07/18/19 10:30 BP 94/51 L 07/18/19 10:30 Pulse Ox 97 07/18/19 10:30 - RESPIRATORY Respiratory Status: Respiratory Rate WNL, Airway Patent, O2 Saturation Stable - CARDIOVASCULAR CV Status: Pulse Rate WNL, Blood Pressure Stable - GASTROINTESTINAL GI Status: No Symptoms - PAIN Pain Score: 0 - POST OP HYDRATION Hydration Status: Adequate & Stable (Routine spinal/MAC with SSNB to follow in PACU)
--- NOTE | 2019-07-18 11:14 | CR ---
Left knee: AP and lateral views of the left knee were obtained. Comparison: Prior left knee radiographic study of 04/20/19. Findings: Knee prosthesis is seen. Components are aligned. Soft tissue air is noted from the surgical procedure. Underlying bony structures are intact. No subluxation or fracture is seen. Impression: 1. Satisfactory appearance of recently placed left knee prosthesis. Diagnostic code #2
[2019-07-18] MEDS: Acetaminophen/oxyCODONE 325-5 MG Tab PO PRN ×2 (13:39→19:26)
[2019-07-18] MEDS ORDERED: Triamcinolone Acetonide 0.1% Crm 15 GM Tube TOP PRN (15:21)
[2019-07-18] MEDS ORDERED: FLUTICASONE PROPIONATE INH PRN (15:21)
[2019-07-18] MEDS: ceFAZolin 2 GM in Premix Bag 1 BAG IV SCH (17:45)
[2019-07-18] MEDS: Topiramate 25 MG Tab PO SCH (20:33)
[2019-07-18] MEDS: Famotidine 20 MG Tab PO SCH (20:34)
[2019-07-18] MEDS: Docusate Sodium 100 MG Cap PO SCH (20:35)
[2019-07-18] MEDS ORDERED: Sennosides 8.6 MG Tab PO PRN (21:00)
[2019-07-18] MEDS ORDERED: Cyclobenzaprine 10 MG Tab PO PRN (21:00)
[2019-07-18] MEDS ORDERED: DULoxetine 30 MG Cap PO SCH ×2 (21:00)
[2019-07-18] MEDS ORDERED: Magnesium Hydroxide 400 MG/5 ML Susp 30 ML Cup PO PRN (21:00)
[2019-07-18] MEDS: Ketorolac 15 MG/ML SDV IVPUSH PRN (22:57)
[2019-07-19] MEDS: ceFAZolin 2 GM in Premix Bag 1 BAG IV SCH ×2 (00:11→09:51)
[2019-07-19] MEDS: Acetaminophen/oxyCODONE 325-5 MG Tab PO PRN ×2 (04:36→08:46)
[2019-07-19] MEDS ORDERED: Pantoprazole 40 MG Tab.CR PO SCH (07:00)
--- NOTE | 2019-07-19 07:01 | PCM.CONSN ---
- General Info Date of Service: 07/19/19 Admission Dx/Problem (Free Text): Admission Diagnosis/Problem Admission Diagnosis/Problem Osteoarthritis of knee Functional Status: Reports: Pain Controlled, Tolerating Diet, Ambulating, Urinating, Incentive Spirometry. Denies: New Symptoms - Review of Systems General: Reports: No Symptoms. Denies: Fever, Weakness HEENT: Reports: No Symptoms. Denies: Headaches, Sore Throat Pulmonary: Reports: No Symptoms. Denies: Shortness of Breath, Pleuritic Chest Pain, Cough, Sputum, Wheezing Cardiovascular: Reports: No Symptoms. Denies: Chest Pain, Palpitations, Dyspnea on Exertion Gastrointestinal: Reports: No Symptoms. Denies: Abdominal Pain, Constipation, Diarrhea, Nausea, Vomiting Genitourinary: Reports: No Symptoms. Denies: Pain Musculoskeletal: Reports: Leg Pain (left) Skin: Reports: No Symptoms. Denies: Cyanosis Neurological: Reports: No Symptoms. Denies: Confusion Psychiatric: Reports: No Symptoms - Patient Data Vitals - Most Recent: Last Vital Signs Temp 98.8 F 07/19/19 04:34 Pulse 78 07/19/19 04:34 Resp 16 07/19/19 06:00 BP 135/71 07/19/19 04:34 Pulse Ox 96 07/19/19 06:02 Weight - Most Recent: 249 lb 1.6 oz I&O - Last 24 Hours: Intake & Output 07/18/19 07/18/19 07/19/19 14:59 22:59 06:59 Intake Total 380 2330 1250 Output Total 600 900 Balance 380 1730 350 Lab Results Last 24 Hours: Laboratory Results - last 24 hr 07/18/19 07/19/19 07/19/19 Range/Units 14:15 05:16 05:16 WBC 9.12 (3.98-10.04) K/mm3 RBC 4.16 (3.98-5.22) M/mm3 Hgb 11.0 L (11.2-15.7) gm/dl Hct 34.9 (34.1-44.9) % MCV 83.9 (79.4-94.8) fl MCH 26.4 (25.6-32.2) pg MCHC 31.5 L (32.2-35.5) g/dl RDW Std Deviation 47.3 H (36.4-46.3) fL Plt Count 337 (182-369) K/mm3 MPV 9.5 (9.4-12.3) fl Sodium 137 (136-145) mEq/L Potassium 4.2 (3.5-5.1) mEq/L Chloride 101 (98-107) mEq/L Carbon Dioxide 26 (21-32) mEq/L Anion Gap 14.2 (5-15) BUN 19 H (7-18) mg/dL Creatinine 1.2 H (0.55-1.02) mg/dL Est Cr Clr Drug Dosing 55.75 mL/min Estimated GFR (MDRD) 48 (>60) mL/min BUN/Creatinine Ratio 15.8 (14-18) Glucose 114 H (74-106) mg/dL Calcium 8.6 (8.5-10.1) mg/dL Total Bilirubin 0.4 (0.2-1.0) mg/dL AST 34 (15-37) U/L ALT 22 (14-59) U/L Alkaline Phosphatase 81 (46-116) U/L Total Protein 6.8 (6.4-8.2) g/dl Albumin 3.3 L (3.4-5.0) g/dl Globulin 3.5 gm/dL Albumin/Globulin Ratio 0.9 L (1-2) Urine HCG, Qual Negative (NEGATIVE) Med Orders - Current: Current Medications Aspirin (Aspirin) 81 mg PO DAILY [facility] Bisacodyl (Dulcolax) 5 mg PO DAILY PRN PRN Reason: Constipation Cholecalciferol (Vitamin D3) 5,000 unit PO DAILY [facility] Citalopram Hydrobromide (Celexa) 20 mg PO DAILY [facility] Clonidine HCl (Catapres) 0.1 mg PO BID [facility] Cyclobenzaprine HCl (Flexeril) 10 mg PO BID PRN PRN Reason: Spasms Docusate Sodium (Colace) 100 mg PO BID [facility] Last Admin: 07/18/19 20:35 Dose: 100 mg Duloxetine HCl (Cymbalta) 30 mg PO BEDTIME [facility] Last Admin: 07/18/19 20:33 Dose: 30 mg Duloxetine HCl (Cymbalta) 60 mg PO BEDTIME [facility] Last Admin: 07/18/19 20:33 Dose: 60 mg Famotidine (Pepcid) 20 mg PO Q12H [facility] Last Admin: 07/18/19 20:34 Dose: 20 mg Cefazolin Sodium/Dextrose 2 gm (/ Premix) 50 mls @ 100 mls/hr IV Q8H [facility] Stop: 07/19/19 08:59 Last Admin: 07/19/19 00:11 Dose: 100 mls/hr Ketorolac Tromethamine (Toradol) 15 mg IVPUSH Q6H PRN PRN Reason: Pain Last Admin: 07/18/19 22:57 Dose: 15 mg Lamotrigine (Lamotrigine) 100 mg PO DAILY [facility] Lamotrigine (Lamotrigine) 50 mg PO DAILY [facility] Magnesium Hydroxide (Milk Of Magnesia) 30 ml PO BID PRN PRN Reason: Constipation Metoprolol Succinate (Toprol Xl) 25 mg PO DAILY [facility] Morphine Sulfate (Morphine) 2 mg IVPUSH Q2H PRN PRN Reason: Breakthrough Pain Naloxone HCl (Narcan) 0.1 mg IVPUSH Q5M PRN PRN Reason: Oversedation Non-Formulary Medication (Fluticasone Propionate) 1 dose INH BID PRN PRN Reason: Shortness of Breath Ondansetron HCl (Zofran) 4 mg IVPUSH Q6H PRN PRN Reason: Nausea/Vomiting Oxycodone/Acetaminophen (Percocet 325-5 Mg) 1 - 2 tab PO Q4H PRN PRN Reason: Pain Last Admin: 07/19/19 04:36 Dose: 2 tab Pantoprazole Sodium (Protonix) 40 mg PO DAILY@0700 [facility] Last Admin: 07/19/19 06:08 Dose: 40 mg Rivaroxaban (Xarelto) 10 mg PO DAILY [facility] Senna (Senna) 8.6 mg PO BID PRN PRN Reason: Constipation Sodium Chloride (Saline Flush) 10 ml FLUSH ASDIRECTED PRN PRN Reason: Keep Vein Open Topiramate (Topamax) 50 mg PO BID [facility] Last Admin: 07/18/19 20:33 Dose: 50 mg Triamcinolone Acetonide (Triamcinolone Acetonide 0.1% Crm) 0 gm TOP BID PRN PRN Reason: eczema BILATERALLY TO HANDS Discontinued Medications Acetaminophen (Tylenol) 975 mg PO ONETIME [facility] Stop: 07/18/19 16:00 Last Admin: 07/18/19 07:09 Dose: 975 mg Bupivacaine HCl (Sensorcaine-Mpf 0.25%) Confirm Administered Dose 30 ml .ROUTE .STK-MED ONE Stop: 07/18/19 07:12 Last Admin: 07/18/19 09:43 Dose: 30 ml Cefazolin Sodium (Ancef) Confirm Administered Dose 2 gm .ROUTE .STK-MED ONE Stop: 07/18/19 07:12 Last Admin: 07/18/19 09:37 Dose: 2 gm Cefazolin Sodium (Ancef) Confirm Administered Dose 2 gm .ROUTE .STK-MED ONE Stop: 07/18/19 08:32 Morphine Sulfate 8 mg/Epinephrine HCl 0.3 mg/Cefuroxime Sodium 750 mg/Ketorolac Tromethamine 30 mg/Sodium Chloride 27.9 ml 0 mg .XX ONETIME ONE Stop: 07/18/19 08:31 Last Admin: 07/18/19 14:53 Dose: Not Given Ephedrine Sulfate (Ephedrine In Ns) Confirm Administered Dose 25 mg .ROUTE .ST- MED ONE Stop: 07/18/19 09:37 Epinephrine HCl (Adrenalin) Confirm Administered Dose 1 mg .ROUTE .STK-MED ONE Stop: 07/18/19 07:43 Famotidine (Pepcid) 20 mg IVPUSH ONETIME ONE Stop: 07/18/19 07:55 Last Admin: 07/18/19 08:01 Dose: 20 mg Lactated Ringer's (Ringers, Lactated) 1,000 mls @ 125 mls/hr IV ASDIRECTED [facility] Stop: 07/18/19 23:00 Last Admin: 07/18/19 07:18 Dose: 125 mls/hr Lidocaine HCl (Xylocaine-Mpf 1%) Confirm Administered Dose 4 mls @ as directed .ROUTE .STK-MED ONE Stop: 07/18/19 07:43 Lactated Ringer's (Ringers, Lactated) 1,000 mls @ 125 mls/hr IV ASDIRECTED [facility] Iodine (Iodine 2% Mild Tincture) Confirm Administered Dose 30 ml .ROUTE .STK- MED ONE Stop: 07/18/19 07:12 Last Admin: 07/18/19 09:35 Dose: 18 ml Lidocaine/Sodium Bicarbonate (Buffered Lidocaine 1% In Ns 8.4%) 0.25 ml IDERM ONETIME PRN PRN Reason: Prior to IV Start Stop: 07/18/19 18:00 Last Admin: 07/18/19 07:18 Dose: 0.25 ml Lidocaine/Sodium Bicarbonate (Buffered Lidocaine 1% In Ns 8.4%) 0.25 ml IDERM ONETIME PRN PRN Reason: Prior to IV Start Stop: 07/18/19 18:00 Morphine Sulfate (Duramorph Pf) Confirm Administered Dose 10 mg .ROUTE .STK-MED ONE Stop: 07/18/19 07:44 Oxycodone HCl (Oxycontin) 10 mg PO ONETIME [facility] Stop: 07/18/19 16:00 Last Admin: 07/18/19 07:09 Dose: 10 mg Pregabalin (Lyrica) 50 mg PO ONETIME [facility] Stop: 07/18/19 16:00 Last Admin: 07/18/19 07:09 Dose: 50 mg Propofol (Diprivan 20 Ml) Confirm Administered Dose 400 mg .ROUTE .STK-MED ONE Stop: 07/18/19 07:44 Propofol (Diprivan 20 Ml) Confirm Administered Dose 200 mg .ROUTE .STK-MED ONE Stop: 07/18/19 09:20 Ropivacaine (Naropin 0.5%) Confirm Administered Dose 30 ml .ROUTE .STK-MED ONE Stop: 07/18/19 07:43 Sodium Chloride (Saline Flush) 10 ml FLUSH ASDIRECTED PRN PRN Reason: Keep Vein Open Stop: 07/18/19 18:00 Tranexamic Acid (Cyklokapron) Confirm Administered Dose 1,000 mg .ROUTE .STK- MED ONE Stop: 07/18/19 07:12 Last Admin: 07/18/19 09:44 Dose: 1,000 mg Vancomycin HCl (Vancomycin) Confirm Administered Dose 1 gm .ROUTE .STK-MED ONE Stop: 07/18/19 07:12 Last Admin: 07/18/19 09:45 Dose: 1 gm - Exam Quality Assessment: DVT Prophylaxis General: Alert, Oriented, Cooperative, No Acute Distress HEENT: Pupils Equal, Pupils Reactive, EOMI, Mucous Membr. Moist/[place] Neck: Supple, Trachea Midline Lungs: Clear to Auscultation, Normal Respiratory Effort Cardiovascular: Regular Rate, Regular Rhythm GI/Abdominal Exam: Normal Bowel Sounds, Soft, Non-Tender, No Distention, No Abnormal Bruit (Female) Exam: Deferred Back Exam: Normal Inspection, Full Range of Motion Extremities: No Pedal Edema, Normal Capillary Refill, Leg Pain, Limited Range of Motion, Other (Bandage in place on left leg. Cooling pack in place. ) Peripheral Pulses: 2+: Radial (L), Radial (R), Dorsalis Pedis (L), Dorsalis Pedis (R) Skin: Warm, Dry, Intact Wound/Incisions: Dressing Dry and Intact Neurological: No New Focal Deficit Psy/Mental Status: Alert, Normal Affect, Normal Mood Consult PN Assessment/Plan POD#: 1 Procedures: Procedures AIRWAY INHALATION TREATMENT (07/01/16) ANTITHROMBIN III ACTIVITY (01/21/15) ASSAY OF CK (CPK) (04/27/15) ASSAY OF FREE THYROXINE (05/12/18) ASSAY OF GONADOTROPIN (FSH) (02/23/17) ASSAY OF GONADOTROPIN (LH) (02/23/17) ASSAY OF HOMOCYSTINE (01/21/15) ASSAY OF IRON (05/14/15) ASSAY OF MAGNESIUM (05/18/14) ASSAY OF MYOGLOBIN (04/27/15) ASSAY OF NATRIURETIC PEPTIDE (07/11/14) ASSAY OF PREALBUMIN (11/17/18) ASSAY OF SERUM ALBUMIN (07/04/19) ASSAY OF SERUM POTASSIUM (01/31/16) ASSAY OF TRANSFERRIN (05/14/15) ASSAY OF TROPONIN QUANT (04/21/15) ASSAY THYROID STIM HORMONE (05/12/18) C-REACTIVE PROTEIN (03/29/15) CHEST X-RAY 1 VIEW FRONTAL (07/11/14) CHEST X-RAY 2VW FRONTAL&LATL (06/25/16) CHORIONIC GONADOTROPIN ASSAY (03/21/15) CHORIONIC GONADOTROPIN TEST (02/23/17) CLOT INHIBIT PROT C ACTIVITY (01/21/15) CLOT INHIBIT PROT S FREE (01/21/15) COMP SCREEN MAMMOGRAM ADD-ON (12/31/15) COMPLETE CBC AUTOMATED (05/14/15) COMPLETE CBC W/AUTO DIFF WBC (03/24/19) COMPREHEN METABOLIC PANEL (03/24/19) COMPUTER DX MAMMOGRAM ADD-ON (12/25/14) CREATINE MB FRACTION (04/21/15) CT ABD & PELV W/CONTRAST (10/15/17) CT ANGIOGRAPHY CHEST (07/11/14) CT HEAD/BRAIN W/O DYE (02/18/18) CT NECK SPINE W/O DYE (03/24/19) CULTURE OTHR SPECIMN AEROBIC (02/08/19) ECG MONIT/REPRT UP TO 48 HRS (07/17/14) ECG MONIT/REPRT UP TO 48 HRS (07/17/14) ELECTROCARDIOGRAM TRACING (04/21/15) EMERGENCY DEPT VISIT (03/24/19) EMERGENCY DEPT VISIT (11/26/17) EMERGENCY DEPT VISIT (05/31/17) EMERGENCY DEPT VISIT (07/06/16) EMERGENCY DEPT VISIT (07/11/15) EMERGENCY DEPT VISIT (05/07/15) EMERGENCY DEPT VISIT (04/21/15) EMERGENCY DEPT VISIT (03/29/15) EMERGENCY DEPT VISIT (03/04/15) EMERGENCY DEPT VISIT (07/11/14) EMERGENCY DEPT VISIT (05/14/14) EVALUATE PT USE OF INHALER (07/01/16) EXTREMITY STUDY (04/18/16) EXTREMITY STUDY (03/27/15) EXTREMITY STUDY (03/04/15) F2 GENE (01/21/15) F5 GENE (01/21/15) FIBRIN DEGRADATION QUANT (04/21/15) GLYCOSYLATED HEMOGLOBIN TEST (01/10/16) HYDRATE IV INFUSION ADD-ON (11/26/17) HYDRATION IV INFUSION INIT (07/11/14) HYSTEROSCOPY BIOPSY (06/20/15) INSERT BLADDER CATHETER (12/14/14) KNEE ARTHROSCOPY/SURGERY (07/19/15) KNEE ARTHROSCOPY/SURGERY (07/19/15) LAPAROSCOPY EXCISE LESIONS (06/20/15) LIPID PANEL (11/05/17) METABOLIC PANEL TOTAL CA (07/04/19) MICROBE SUSCEPTIBLE NIURKA (04/11/16) MR-STAPH DNA AMP PROBE (06/18/16) MRI JNT OF LWR EXTRE W/O DYE (05/09/16) MRI JOINT UPR EXTREM W/O DYE (06/17/16) PROTHROMBIN TIME (07/04/19) PT EVAL LOW COMPLEX 20 MIN (05/15/17) REPAIR OF BICEPS TENDON (07/01/16) REPAIR ROTATOR CUFF CHRONIC (07/01/16) ROUTINE VENIPUNCTURE (03/24/19) SHOULDER ARTHROSCOPY/SURGERY (07/01/16) SHOULDER ARTHROSCOPY/SURGERY (07/01/16) SHOULDER ARTHROSCOPY/SURGERY (07/01/16) SHOULDER ARTHROSCOPY/SURGERY (01/02/15) SMEAR WET [place] SALINE/INK (02/08/19) THER/PROPH/DIAG INJ IV PUSH (03/24/19) THER/PROPH/DIAG INJ SC/IM (11/26/17) THERAPEUTIC EXERCISES (06/03/17) THROMBOPLASTIN TIME PARTIAL (11/17/18) TISSUE EXAM BY PATHOLOGIST (06/20/15) TRANSVAGINAL US NON-OB (02/15/19) TRICHOMONAS ASSAY W/OPTIC (02/08/19) TX/PRO/DX INJ NEW DRUG ADDON (03/24/19) TX/PRO/DX INJ SAME DRUG ESTIMATE CLERK (12/14/14) ULTRASOUND BREAST COMPLETE (12/29/14) ULTRASOUND THERAPY (06/03/17) UR ALBUMIN SEMIQUANTITATIVE (01/10/16) URINALYSIS AUTO W/SCOPE (03/29/15) URINE BACTERIA CULTURE (04/11/16) URINE CULTURE/COLONY COUNT (07/04/19) URINE TEST (07/19/15) US EXAM PELVIC COMPLETE (12/14/14) VITAMIN B-12 (11/05/17) VITAMIN D 25 HYDROXY (11/05/17) X-RAY EXAM CHEST 2 VIEWS (07/04/19) X-RAY EXAM HIP UNI 2-3 VIEWS (10/14/18) X-RAY EXAM KNEE 4 OR MORE (04/20/19) X-RAY EXAM L-S SPINE 2/3 VWS (03/24/19) X-RAY EXAM OF ANKLE (01/05/17) X-RAY EXAM OF FINGER(S) (06/07/19) X-RAY EXAM OF FOOT (11/04/17) X-RAY EXAM OF KNEE 1 OR 2 (02/25/18) X-RAY EXAM OF KNEE 3 (05/23/16) X-RAY EXAM OF LOWER LEG (07/11/15) X-RAY EXAM OF SHOULDER (04/16/16) X-RAY EXAM OF SHOULDER (12/29/13) X-RAY EXAM OF SKULL (06/17/16) X-RAY EXAM OF WRIST (03/19/17) (1) S/P total knee arthroplasty SNOMED Code(s): 6385355882438, 642613258, 7077987698152 Code(s): Z96.659 - PRESENCE OF UNSPECIFIED ARTIFICIAL KNEE JOINT Priority: High Current Visit: Yes Qualifiers: Laterality: left Qualified Code(s): Z96.652 - Presence of left artificial knee joint (2) Anemia SNOMED Code(s): 464904833 Code(s): D64.9 - ANEMIA, UNSPECIFIED Priority: Medium Current Visit: No Qualifiers: Anemia type: unspecified type Qualified Code(s): D64.9 - Anemia, unspecified (3) Anxiety SNOMED Code(s): 58920618 Code(s): F41.9 - ANXIETY DISORDER, UNSPECIFIED Priority: Low Current Visit: No (4) Asthma SNOMED Code(s): 936475533 Code(s): J45.909 - UNSPECIFIED ASTHMA, UNCOMPLICATED Priority: Medium Current Visit: No Qualifiers: Asthma severity: unspecified severity Asthma persistence: unspecified Asthma complication type: unspecified Qualified Code(s): J45.909 - Unspecified asthma, uncomplicated (5) COPD (chronic obstructive pulmonary disease) SNOMED Code(s): 17385679 Code(s): J44.9 - CHRONIC OBSTRUCTIVE PULMONARY DISEASE, UNSPECIFIED Priority: Medium Current Visit: No Qualifiers: COPD type: unspecified COPD Qualified Code(s): J44.9 - Chronic obstructive pulmonary disease, unspecified (6) Chronic diarrhea SNOMED Code(s): 324308792 Code(s): K52.9 - NONINFECTIVE GASTROENTERITIS AND COLITIS, UNSPECIFIED Priority: Low Current Visit: No (7) Chronic headache SNOMED Code(s): 909132109 Code(s): R51 - HEADACHE Priority: Low Current Visit: No Qualifiers: Headache type: unspecified Intractability: intractable Qualified Code(s) : R51 - Headache (8) Eczema SNOMED Code(s): 87917929 Code(s): L30.9 - DERMATITIS, UNSPECIFIED Priority: Low Current Visit: No Qualifiers: Eczema type: unspecified Qualified Code(s): L30.9 - Dermatitis, unspecified (9) GERD (gastroesophageal reflux disease) SNOMED Code(s): 825932540 Code(s): K21.9 - GASTRO-ESOPHAGEAL REFLUX DISEASE WITHOUT ESOPHAGITIS Priority: Low Current Visit: No Qualifiers: Esophagitis presence: esophagitis presence not specified Qualified Code(s) : K21.9 - Gastro-esophageal reflux disease without esophagitis (10) HLD (hyperlipidemia) SNOMED Code(s): 62658041 Code(s): E78.5 - HYPERLIPIDEMIA, UNSPECIFIED Priority: Low Current Visit : No Qualifiers: Hyperlipidemia type: unspecified Qualified Code(s): E78.5 - Hyperlipidemia , unspecified (11) HTN (hypertension) SNOMED Code(s): 91281534 Code(s): I10 - ESSENTIAL (PRIMARY) HYPERTENSION Priority: Medium Current Visit: No Qualifiers: Hypertension type: unspecified Qualified Code(s): I10 - Essential (primary ) hypertension (12) History of deep venous thrombosis or pulmonary embolus SNOMED Code(s): 686646791 Code(s): EWQ5498 - Priority: Medium Current Visit: No (13) History of suicide attempt SNOMED Code(s): 220791170, 446583021 Code(s): Z91.5 - PERSONAL HISTORY OF SELF-HARM Priority: Low Current Visit: No (14) Osteoarthritis SNOMED Code(s): 696971757 Code(s): M19.90 - UNSPECIFIED OSTEOARTHRITIS, UNSPECIFIED SITE Priority: High Current Visit: No Qualifiers: Osteoarthritis location: knee Osteoarthritis type: primary Laterality: bilateral Qualified Code(s): M17.0 - Bilateral primary osteoarthritis of knee (15) PTSD (post-traumatic stress disorder) SNOMED Code(s): 87932730 Code(s): F43.10 - POST-TRAUMATIC STRESS DISORDER, UNSPECIFIED Priority: Medium Current Visit: No (16) Peripheral neuropathy SNOMED Code(s): 282990823 Code(s): G62.9 - POLYNEUROPATHY, UNSPECIFIED Priority: Medium Current Visit: No Qualifiers: Peripheral neuropathy type: polyneuropathy, unspecified Qualified Code(s): G62.9 - Polyneuropathy, unspecified (17) RLS (restless legs syndrome) SNOMED Code(s): 34757718 Code(s): G25.81 - RESTLESS LEGS SYNDROME Priority: Low Current Visit: No (18) Depression SNOMED Code(s): 69222943 Code(s): F32.9 - MAJOR DEPRESSIVE DISORDER, SINGLE EPISODE, UNSPECIFIED Priority: Low Current Visit: No Qualifiers: Depression Type: other depression Qualified Code(s): F32.89 - Other specified depressive episodes Problem List Initiated/Reviewed/Updated: Yes My Orders Last 24 Hours: My Active Orders 07/18/19 21:00 DULoxetine [Cymbalta] 30 mg PO BEDTIME DULoxetine [Cymbalta] 60 mg PO BEDTIME Topiramate [Topamax] 50 mg PO BID 07/19/19 09:00 Aspirin 81 mg PO DAILY Cholecalciferol (Vitamin D3) [Vitamin D3] 5,000 unit PO DAILY Citalopram [Celexa] 20 mg PO DAILY Metoprolol Succinate [Toprol XL] 25 mg PO DAILY cloNIDine [Catapres] 0.1 mg PO BID lamoTRIgine 100 mg PO DAILY lamoTRIgine 50 mg PO DAILY Plan: I/P: Acute: S/P left total knee arthroplasty - post-operative day 1 -DVT prophylaxis and pain management per primary care team -PT/OT -IS/RT -Monitor oxygen saturation -Titrate oxygen as needed -Home medications reviewed -Vital signs stable -Monitor labs -Pre-operative Hgb was 12.7; Now 11.0 -Pre-operative GFR was 53; Now 48 -Pre-operative creatinine was 1.1; Now 1.2 -Pre-operative BUN was 14; Now 19 Osteoarthritis of left knee -Pain management per primary care team Chronic: HTN Headaches Anxiety GERD HLD Irregular HR Edema COPD Recurrent Bronchitis Urinary incontinence Recurrent UTIs Menorrhagia Osteoarthritis, RLS Peripheral neuropathy Chronic diarrhea PTSD Depression Vitamin D deficiency B12 deficiency Anemia Eczema DVT in 2014 Allergic rhinitis Hx/o Suicide attempt Varicose venins Asthma Plan: CM for discharge planning GI prophylaxis Home medications as indicated Other orders as listed above Routine AM labs She is a full code. Her PCP is Cara Miguel NP From a hospitalist standpoint Kiel is doing well. She has been up ambulating and working with therapies. She has been utilizing her IS. She is off of oxygen and has voided. Her labs and vital signs remain stable. She is cleared for discharge pending primary team and PT/OT agreement. Thank you for allowing us to participate in the care of this patient!!
[2019-07-19] MEDS: Ketorolac 15 MG/ML SDV IVPUSH PRN (07:55)
--- NOTE | 2019-07-19 08:06 | PCM.SURGPN ---
- General Info Date of Service: 07/19/19 POD#: 1 Functional Status: Reports: Pain Controlled, Tolerating Diet, Ambulating, Urinating, Incentive Spirometry - Patient Data Vitals - Most Recent: Last Vital Signs Temp 98.8 F 07/19/19 04:34 Pulse 78 07/19/19 04:34 Resp 18 07/19/19 07:00 BP 135/71 07/19/19 04:34 Pulse Ox 96 07/19/19 06:02 Weight - Most Recent: 249 lb 1.6 oz I&O - Last 24 Hours: Intake & Output 07/18/19 07/19/19 07/19/19 22:59 06:59 14:59 Intake Total 2330 1250 Output Total 600 900 Balance 1730 350 Lab Results Last 24 Hrs: Laboratory Results - last 24 hr 07/18/19 07/19/19 07/19/19 Range/Units 14:15 05:16 05:16 WBC 9.12 (3.98-10.04) K/mm3 RBC 4.16 (3.98-5.22) M/mm3 Hgb 11.0 L (11.2-15.7) gm/dl Hct 34.9 (34.1-44.9) % MCV 83.9 (79.4-94.8) fl MCH 26.4 (25.6-32.2) pg MCHC 31.5 L (32.2-35.5) g/dl RDW Std Deviation 47.3 H (36.4-46.3) fL Plt Count 337 (182-369) K/mm3 MPV 9.5 (9.4-12.3) fl Sodium 137 (136-145) mEq/L Potassium 4.2 (3.5-5.1) mEq/L Chloride 101 (98-107) mEq/L Carbon Dioxide 26 (21-32) mEq/L Anion Gap 14.2 (5-15) BUN 19 H (7-18) mg/dL Creatinine 1.2 H (0.55-1.02) mg/dL Est Cr Clr Drug Dosing 55.75 mL/min Estimated GFR (MDRD) 48 (>60) mL/min BUN/Creatinine Ratio 15.8 (14-18) Glucose 114 H (74-106) mg/dL Calcium 8.6 (8.5-10.1) mg/dL Total Bilirubin 0.4 (0.2-1.0) mg/dL AST 34 (15-37) U/L ALT 22 (14-59) U/L Alkaline Phosphatase 81 (46-116) U/L Total Protein 6.8 (6.4-8.2) g/dl Albumin 3.3 L (3.4-5.0) g/dl Globulin 3.5 gm/dL Albumin/Globulin Ratio 0.9 L (1-2) Urine HCG, Qual Negative (NEGATIVE) Med Orders - Current: Current Medications Aspirin (Aspirin) 81 mg PO DAILY [facility] Bisacodyl (Dulcolax) 5 mg PO DAILY PRN PRN Reason: Constipation Cholecalciferol (Vitamin D3) 5,000 unit PO DAILY [facility] Citalopram Hydrobromide (Celexa) 20 mg PO DAILY [facility] Clonidine HCl (Catapres) 0.1 mg PO BID [facility] Cyclobenzaprine HCl (Flexeril) 10 mg PO BID PRN PRN Reason: Spasms Docusate Sodium (Colace) 100 mg PO BID [facility] Last Admin: 07/18/19 20:35 Dose: 100 mg Duloxetine HCl (Cymbalta) 30 mg PO BEDTIME [facility] Last Admin: 07/18/19 20:33 Dose: 30 mg Duloxetine HCl (Cymbalta) 60 mg PO BEDTIME [facility] Last Admin: 07/18/19 20:33 Dose: 60 mg Famotidine (Pepcid) 20 mg PO Q12H [facility] Last Admin: 07/18/19 20:34 Dose: 20 mg Cefazolin Sodium/Dextrose 2 gm (/ Premix) 50 mls @ 100 mls/hr IV Q8H [facility] Stop: 07/19/19 08:59 Last Admin: 07/19/19 00:11 Dose: 100 mls/hr Ketorolac Tromethamine (Toradol) 15 mg IVPUSH Q6H PRN PRN Reason: Pain Last Admin: 07/18/19 22:57 Dose: 15 mg Lamotrigine (Lamotrigine) 100 mg PO DAILY [facility] Lamotrigine (Lamotrigine) 50 mg PO DAILY [facility] Magnesium Hydroxide (Milk Of Magnesia) 30 ml PO BID PRN PRN Reason: Constipation Metoprolol Succinate (Toprol Xl) 25 mg PO DAILY [facility] Morphine Sulfate (Morphine) 2 mg IVPUSH Q2H PRN PRN Reason: Breakthrough Pain Naloxone HCl (Narcan) 0.1 mg IVPUSH Q5M PRN PRN Reason: Oversedation Ondansetron HCl (Zofran) 4 mg IVPUSH Q6H PRN PRN Reason: Nausea/Vomiting Oxycodone/Acetaminophen (Percocet 325-5 Mg) 1 - 2 tab PO Q4H PRN PRN Reason: Pain Last Admin: 07/19/19 04:36 Dose: 2 tab Pantoprazole Sodium (Protonix) 40 mg PO DAILY@0700 [facility] Last Admin: 07/19/19 06:08 Dose: 40 mg Rivaroxaban (Xarelto) 10 mg PO DAILY [facility] Senna (Senna) 8.6 mg PO BID PRN PRN Reason: Constipation Sodium Chloride (Saline Flush) 10 ml FLUSH ASDIRECTED PRN PRN Reason: Keep Vein Open Topiramate (Topamax) 50 mg PO BID [facility] Last Admin: 07/18/19 20:33 Dose: 50 mg Triamcinolone Acetonide (Triamcinolone Acetonide 0.1% Crm) 0 gm TOP BID PRN PRN Reason: eczema BILATERALLY TO HANDS Discontinued Medications Acetaminophen (Tylenol) 975 mg PO ONETIME [facility] Stop: 07/18/19 16:00 Last Admin: 07/18/19 07:09 Dose: 975 mg Bupivacaine HCl (Sensorcaine-Mpf 0.25%) Confirm Administered Dose 30 ml .ROUTE .STK-MED ONE Stop: 07/18/19 07:12 Last Admin: 07/18/19 09:43 Dose: 30 ml Cefazolin Sodium (Ancef) Confirm Administered Dose 2 gm .ROUTE .STK-MED ONE Stop: 07/18/19 07:12 Last Admin: 07/18/19 09:37 Dose: 2 gm Cefazolin Sodium (Ancef) Confirm Administered Dose 2 gm .ROUTE .STK-MED ONE Stop: 07/18/19 08:32 Morphine Sulfate 8 mg/Epinephrine HCl 0.3 mg/Cefuroxime Sodium 750 mg/Ketorolac Tromethamine 30 mg/Sodium Chloride 27.9 ml 0 mg .XX ONETIME ONE Stop: 07/18/19 08:31 Last Admin: 07/18/19 14:53 Dose: Not Given Ephedrine Sulfate (Ephedrine In Ns) Confirm Administered Dose 25 mg .ROUTE .STK- MED ONE Stop: 07/18/19 09:37 Epinephrine HCl (Adrenalin) Confirm Administered Dose 1 mg .ROUTE .STK-MED ONE Stop: 07/18/19 07:43 Famotidine (Pepcid) 20 mg IVPUSH ONETIME ONE Stop: 07/18/19 07:55 Last Admin: 07/18/19 08:01 Dose: 20 mg Lactated Ringer's (Ringers, Lactated) 1,000 mls @ 125 mls/hr IV ASDIRECTED [facility] Stop: 07/18/19 23:00 Last Admin: 07/18/19 07:18 Dose: 125 mls/hr Lidocaine HCl (Xylocaine-Mpf 1%) Confirm Administered Dose 4 mls @ as directed .ROUTE .STK-MED ONE Stop: 07/18/19 07:43 Lactated Ringer's (Ringers, Lactated) 1,000 mls @ 125 mls/hr IV ASDIRECTED [facility] Iodine (Iodine 2% Mild Tincture) Confirm Administered Dose 30 ml .ROUTE .STK- MED ONE Stop: 07/18/19 07:12 Last Admin: 07/18/19 09:35 Dose: 18 ml Lidocaine/Sodium Bicarbonate (Buffered Lidocaine 1% In Ns 8.4%) 0.25 ml IDERM ONETIME PRN PRN Reason: Prior to IV Start Stop: 07/18/19 18:00 Last Admin: 07/18/19 07:18 Dose: 0.25 ml Lidocaine/Sodium Bicarbonate (Buffered Lidocaine 1% In Ns 8.4%) 0.25 ml IDERM ONETIME PRN PRN Reason: Prior to IV Start Stop: 07/18/19 18:00 Morphine Sulfate (Duramorph Pf) Confirm Administered Dose 10 mg .ROUTE .STK-MED ONE Stop: 07/18/19 07:44 Non-Formulary Medication (Fluticasone Propionate) 1 dose INH BID PRN PRN Reason: Shortness of Breath Oxycodone HCl (Oxycontin) 10 mg PO ONETIME [facility] Stop: 07/18/19 16:00 Last Admin: 07/18/19 07:09 Dose: 10 mg Pregabalin (Lyrica) 50 mg PO ONETIME [facility] Stop: 07/18/19 16:00 Last Admin: 07/18/19 07:09 Dose: 50 mg Propofol (Diprivan 20 Ml) Confirm Administered Dose 400 mg .ROUTE .STK-MED ONE Stop: 07/18/19 07:44 Propofol (Diprivan 20 Ml) Confirm Administered Dose 200 mg .ROUTE .STK-MED ONE Stop: 07/18/19 09:20 Ropivacaine (Naropin 0.5%) Confirm Administered Dose 30 ml .ROUTE .STK-MED ONE Stop: 07/18/19 07:43 Sodium Chloride (Saline Flush) 10 ml FLUSH ASDIRECTED PRN PRN Reason: Keep Vein Open Stop: 07/18/19 18:00 Tranexamic Acid (Cyklokapron) Confirm Administered Dose 1,000 mg .ROUTE .STK- MED ONE Stop: 07/18/19 07:12 Last Admin: 07/18/19 09:44 Dose: 1,000 mg Vancomycin HCl (Vancomycin) Confirm Administered Dose 1 gm .ROUTE .STK-MED ONE Stop: 07/18/19 07:12 Last Admin: 07/18/19 09:45 Dose: 1 gm - Exam Wound/Incisions: Other (Inferior portion of MARGARETH with dried blood.) General: Alert, Cooperative, No Acute Distress Lungs: Normal Respiratory Effort Extremities: Other (NVS intact for LLE. Robyn's negative.) - Problem List Review Problem List Initiated/Reviewed/Updated: Yes - My Orders Last 24 Hours: Active Orders 24 hr Category Date Time Status Oxygen Therapy [RC] ASDIRECTED Care 07/18/19 08:44 Active Ready for Discharge [RC] PER UNIT ROUTINE Care 07/19/19 08:03 Ordered Regular Diet [DIET] Diet 07/18/19 Lunch Active Aspirin Med 07/19/19 09:00 Active 81 mg PO DAILY Bisacodyl [Dulcolax] Med 07/19/19 09:00 Active 5 mg PO DAILY PRN Cholecalciferol (Vitamin D3) [Vitamin D3] Med 07/19/19 09:00 Active 5,000 unit PO DAILY Citalopram [Celexa] Med 07/19/19 09:00 Active 20 mg PO DAILY Cyclobenzaprine [Flexeril] Med 07/18/19 21:00 Active 10 mg PO BID PRN DULoxetine [Cymbalta] Med 07/18/19 21:00 Active 30 mg PO BEDTIME DULoxetine [Cymbalta] Med 07/18/19 21:00 Active 60 mg PO BEDTIME Docusate Sodium [Colace] Med 07/18/19 21:00 Active 100 mg PO BID Famotidine [Pepcid] Med 07/18/19 21:00 Active 20 mg PO Q12H Magnesium Hydroxide [Milk of Magnesia] Med 07/18/19 21:00 Active 30 ml PO BID PRN Metoprolol Succinate [Toprol XL] Med 07/19/19 09:00 Active 25 mg PO DAILY Pantoprazole [ProTONIX] Med 07/19/19 07:00 Active 40 mg PO DAILY@0700 Rivaroxaban [Xarelto] Med 07/19/19 09:00 Active 10 mg PO DAILY Sennosides [Senna] Med 07/18/19 21:00 Active 8.6 mg PO BID PRN Sodium Chloride 0.9% [Saline Flush] Med 07/18/19 07:54 Active 10 ml FLUSH ASDIRECTED PRN Topiramate [Topamax] Med 07/18/19 21:00 Active 50 mg PO BID Triamcinolone Acetonide [Triamcinolone Acetonide 0.1% Med 07/18/19 15:21 Active Crm] 0 gm TOP BID PRN ceFAZolin [Ancef] 2 gm Med 07/18/19 16:30 Active Premix Bag 1 bag IV Q8H cloNIDine [Catapres] Med 07/19/19 09:00 Active 0.1 mg PO BID lamoTRIgine Med 07/19/19 09:00 Active 100 mg PO DAILY lamoTRIgine Med 07/19/19 09:00 Active 50 mg PO DAILY Medication Administration Instruction [OM.PC] Routine Oth 07/18/19 07:55 Ordered Pulse Oximetry Continuous Monitoring [OM.PC] Routine Oth 07/18/19 08:44 Active Medication Orders Aspirin (Aspirin) 81 mg PO DAILY [facility] Bisacodyl (Dulcolax) 5 mg PO DAILY PRN PRN Reason: Constipation Cholecalciferol (Vitamin D3) 5,000 unit PO DAILY [facility] Citalopram Hydrobromide (Celexa) 20 mg PO DAILY [facility] Clonidine HCl (Catapres) 0.1 mg PO BID [facility] Cyclobenzaprine HCl (Flexeril) 10 mg PO BID PRN PRN Reason: Spasms Docusate Sodium (Colace) 100 mg PO BID [facility] Last Admin: 07/18/19 20:35 Dose: 100 mg Duloxetine HCl (Cymbalta) 30 mg PO BEDTIME [facility] Last Admin: 07/18/19 20:33 Dose: 30 mg Duloxetine HCl (Cymbalta) 60 mg PO BEDTIME [facility] Last Admin: 07/18/19 20:33 Dose: 60 mg Famotidine (Pepcid) 20 mg PO Q12H [facility] Last Admin: 07/18/19 20:34 Dose: 20 mg Cefazolin Sodium/Dextrose 2 gm (/ Premix) 50 mls @ 100 mls/hr IV Q8H [facility] Stop: 07/19/19 08:59 Last Admin: 07/19/19 00:11 Dose: 100 mls/hr Infusion: 07/18/19 18:15 Dose: 100 mls/hr Admin: 07/18/19 17:45 Dose: 100 mls/hr Ketorolac Tromethamine (Toradol) 15 mg IVPUSH Q6H PRN PRN Reason: Pain Last Admin: 07/18/19 22:57 Dose: 15 mg Lamotrigine (Lamotrigine) 100 mg PO DAILY [facility] Lamotrigine (Lamotrigine) 50 mg PO DAILY [facility] Magnesium Hydroxide (Milk Of Magnesia) 30 ml PO BID PRN PRN Reason: Constipation Metoprolol Succinate (Toprol Xl) 25 mg PO DAILY [facility] Morphine Sulfate (Morphine) 2 mg IVPUSH Q2H PRN PRN Reason: Breakthrough Pain Naloxone HCl (Narcan) 0.1 mg IVPUSH Q5M PRN PRN Reason: Oversedation Ondansetron HCl (Zofran) 4 mg IVPUSH Q6H PRN PRN Reason: Nausea/Vomiting Oxycodone/Acetaminophen (Percocet 325-5 Mg) 1 - 2 tab PO Q4H PRN PRN Reason: Pain Last Admin: 07/19/19 04:36 Dose: 2 tab Admin: 07/18/19 19:26 Dose: 2 tab Admin: 07/18/19 13:39 Dose: 2 tab Pantoprazole Sodium (Protonix) 40 mg PO DAILY@0700 [facility] Last Admin: 07/19/19 06:08 Dose: 40 mg Rivaroxaban (Xarelto) 10 mg PO DAILY [facility] Senna (Senna) 8.6 mg PO BID PRN PRN Reason: Constipation Sodium Chloride (Saline Flush) 10 ml FLUSH ASDIRECTED PRN PRN Reason: Keep Vein Open Topiramate (Topamax) 50 mg PO BID [facility] Last Admin: 07/18/19 20:33 Dose: 50 mg Triamcinolone Acetonide (Triamcinolone Acetonide 0.1% Crm) 0 gm TOP BID PRN PRN Reason: eczema BILATERALLY TO HANDS - Assessment Assessment (Free Text/Narrative):: POD#1 - left TKA - Plan Plan (Free Text/Narrative):: 1. Hgb 11.0. 2. Dressing changed last evening due to bleeding. Dermabond Prineo placed and new MARGARETH applied. Dried blood noted at inferior portion of MARGARETH dressing. Stability noted over the last 8 hours. Area outlined and will continue to monitor. 3. Xarelto 10mg PO daily (personal hx VTE), TEDs, frequent mobility. 4. Discharge to home today. The pt's case was discussed with Dr. Fuentes. Dr. Fuentes also evaluated the pt today.
[2019-07-19] MEDS: Topiramate 25 MG Tab PO SCH (08:50)
[2019-07-19] MEDS: Famotidine 20 MG Tab PO SCH (08:53)
[2019-07-19] MEDS: Docusate Sodium 100 MG Cap PO SCH (08:54)
[2019-07-19 08:56] VITALS: BP 136/78; PULSE 97
[2019-07-19] MEDS ORDERED: Metoprolol Succinate 25 MG Tab.ER PO SCH (09:00)
[2019-07-19] MEDS ORDERED: cloNIDine 0.1 MG Tab PO SCH (09:00)
[2019-07-19] MEDS ORDERED: Cholecalciferol (Vitamin D3) 5,000 UNIT Tab PO SCH (09:00)
[2019-07-19] MEDS ORDERED: Rivaroxaban 10 MG Tab PO SCH (09:00)
[2019-07-19] MEDS ORDERED: Bisacodyl 5 MG Tab PO PRN (09:00)
[2019-07-19] MEDS ORDERED: Citalopram 20 MG Tab PO SCH (09:00)
[2019-07-19] MEDS ORDERED: lamoTRIgine 100 MG Tab PO SCH (09:00)
[2019-07-19] MEDS ORDERED: Aspirin 81 MG Tab.Chew PO SCH (09:00)
--- NOTE | 2019-07-19 10:59 | PCM48HPAN ---
Post Anesthesia Note - EVALUATION WITHIN 48HRS OF ANESTHETIC Vital Signs in Normal Range: Yes Patient Participated in Evaluation: Yes Respiratory Function Stable: Yes Airway Patent: Yes Cardiovascular Function Stable: Yes Hydration Status Stable: Yes Pain Control Satisfactory: Yes Nausea and Vomiting Control Satisfactory: Yes Mental Status Recovered: Yes Vital Signs: Last Vital Signs Temp 37.1 C 07/19/19 04:34 Pulse 97 07/19/19 08:54 Resp 18 07/19/19 07:00 BP 136/78 07/19/19 08:54 Pulse Ox 96 07/19/19 06:02
--- NOTE | 2019-07-21 15:50 | PCM.DCSUM1 ---
Discharge Summary - Hospital Course Brief History: Kiel is a 49 yo female who underwent left TKA with Dr. Fuentes on . The procedure was completed under spinal anesthesia with sedation and a post-operative adductor canal block was placed. The pt tolerated the procedure well and was admitted to the Medical-Surgical Unit. Medical management was provided by the Hospitalist service. The pt's Hospital course was remarkable for post-operative incisional bleeding and a Dermabond Prineo dressing was placed, as well as a MARGARETH dressing. The pt's Hgb on POD#1 was 11.0. On POD#1, Xarelto 10 mg PO daily was initiated for VTE prophylaxis. SCDs and TEDs were also ordered. The pt participated in P.T. and O.T. and progressed well. The pt was allowed to WBAT. On POD#1, the pt was deemed appropriate to discharge to home with her family. - Discharge Data Discharge Date: 07/19/19 Discharge Disposition: Home, Self-Care 01 Condition: Good - Referral to Home Health Primary Care Physician: Cara Miguel NP - Patient Summary/Data Consults: Consultations 07/18/19 06:53 OT Evaluation and Treatment [CONS] Routine PT Evaluation and Treatment [CONS] Routine 07/18/19 06:54 Consult to Physician [CONS] Routine - Patient Instructions Diet: Usual Diet as Tolerated Activity: Apply Ice, As Tolerated, Elevate Extremity, Full Weight Bearing Driving: Do Not Drive Showering/Bathing: May Shower Wound/Incision Care: Keep Operative Site/Wound Site Clean and Dry, Do NOT Change Dressing Notify Provider of: Fever, Increased Pain, Swelling and Redness, Drainage, Nausea and/or Vomiting Other/Special Instructions: Please get up and moving around EVERY HOUR while awake. This helps to prevent blood clots. Please use your walker and have help with mobility as needed. Take a short walk in your home every hour while awake. Please take the Xarelto blood thinner medication daily as directed. Please do not resume use of Aspirin at this time. At home, please complete the exercises that you learned during the Hospital stay. Schedule for physical therapy. Use the pain medication as needed. The medication may cause drowsiness and constipation. Contact your primary care provider for instructions if you are constipated. You may use a stool softener like docusate sodium or Colace 100mg twice daily and/or a laxative like Miralax daily for constipation. Increase your water and fiber intake while you are using the pain medication. Discontinue use of the pain medication as soon as able. Please do not use other medications that may cause drowsiness (other pain medications, anxiety pills, cold medications, sleeping pills, etc) while using the prescription pain medication. Do not use alcohol while using the pain medication. You may use acetaminophen or Tylenol for pain management, however, please ensure you are not using over 4000 mg or 4 grams of acetaminophen per day from all sources. Your pain medication has 325mg of acetaminophen per tablet. At this time, please do not use ibuprofen (Motrin, Advil) or naproxen (Aleve) for pain management as you are using the Xarelto. When the Xarelto course is completed in 4 to 6 weeks, you could use ibuprofen or naproxen for pain management (if this is allowed by your primary care provider). Wear the LUCI hose during the day and you may remove these at night. Elevate the limb to decrease swelling. Place ice to the area often. Place a towel between your skin and the blue pad. Use the incentive spirometer often. Take deep breaths throughout the day. Please keep the dressing in place until follow-up. Notify the Clinic if the dressing becomes saturated. Increase your protein intake while you are healing. Call the Clinic with questions or concerns - [phone]. - Discharge Plan *PRESCRIPTION DRUG MONITORING PROGRAM REVIEWED*: No *COPY OF PRESCRIPTION DRUG MONITORING REPORT IN PATIENT JUD: No Prescriptions/Med Rec: Acetaminophen/oxyCODONE [Percocet 325-5 MG] 1 - 2 tab PO Q4H PRN #60 tablet PRN Reason: Pain Cyclobenzaprine [Flexeril] 10 mg PO BID PRN #20 tablet PRN Reason: Spasms Rivaroxaban [Xarelto] 10 mg PO DAILY #40 tablet Home Medications: Home Meds LORazepam [Ativan] 1 mg PO BID PRN 04/16/14 [History] Citalopram [Citalopram HBr] 20 mg PO DAILY 11/19/18 [History] DULoxetine HCl [Duloxetine HCl] 60 mg PO BEDTIME 11/19/18 [History] Prazosin HCl [Prazosin] 1 mg PO QID 11/19/18 [History] Prazosin HCl [Prazosin] 3 mg PO BEDTIME 11/19/18 [History] SUMAtriptan [Imitrex] 50 mg PO ASDIRECTED PRN 11/19/18 [History] Topiramate 50 mg PO BID 11/19/18 [History] Triamcinolone Acetonide [Triamcinolone Acetonide 0.1% Crm] 1 dose TOP BID PRN [History] lamoTRIgine [Lamotrigine] 150 mg PO DAILY 11/19/18 [History] DULoxetine [Cymbalta] 30 mg PO BEDTIME 11/22/18 [History] Ondansetron [Zofran ODT] 4 mg PO Q8H PRN 03/24/19 [History] cloNIDine [Catapres] 0.1 mg PO BID 03/24/19 [History] Cholecalciferol (Vitamin D3) [Vitamin D3] 5,000 unit PO DAILY 07/13/19 [History] Fluticasone Propionate [Flovent HFA] 1 dose INH BID PRN 07/13/19 [History] Acetaminophen [Tylenol] 650 mg PO BID PRN 07/18/19 [History] Meclizine [Antivert] 25 mg PO DAILY PRN 07/18/19 [History] Metoprolol Succinate 25 mg PO DAILY 07/18/19 [History] Omeprazole Magnesium [Prilosec Otc] 20 mg PO DAILY 07/18/19 [History] Acetaminophen/oxyCODONE [Percocet 325-5 MG] 1 - 2 tab PO Q4H PRN #60 tablet 11/02 [Rx] Bisacodyl [Dulcolax] 5 mg PO DAILY PRN tablet 07/19/19 [Rx] Cyclobenzaprine [Flexeril] 10 mg PO BID PRN #20 tablet 07/19/19 [Rx] Docusate Sodium [Colace] 100 mg PO BID cap 07/19/19 [Rx] Magnesium Hydroxide [Milk of Magnesia] 30 ml PO BID PRN cup 07/19/19 [Rx] Rivaroxaban [Xarelto] 10 mg PO DAILY #40 tablet 07/19/19 [Rx] Sennosides [Senna] 8.6 mg PO BID PRN tablet 07/19/19 [Rx] Patient Handouts: Rivaroxaban oral tablets Referrals: Conchita Tolentino PA-C [Physician Supervisor Pumping] - (07/26/19 at 11am 08/02/19 at 11am 09/09/19 at 10am ) - Discharge Summary/Plan Comment DC Time >30 min.: No - Patient Data Vitals - Most Recent: Last Vital Signs Temp 98.1 F 07/19/19 08:33 Pulse 97 07/19/19 08:54 Resp 21 H 07/19/19 08:33 BP 136/78 07/19/19 08:54 Pulse Ox 97 07/19/19 08:33 Weight - Most Recent: 249 lb 1.6 oz Med Orders - Current: Current Medications Discontinued Medications Acetaminophen (Tylenol) 975 mg PO ONETIME TAWANNA Stop: 07/18/19 16:00 Last Admin: 07/18/19 07:09 Dose: 975 mg Aspirin (Aspirin) 81 mg PO DAILY [facility] Last Admin: 07/19/19 08:51 Dose: 81 mg Bisacodyl (Dulcolax) 5 mg PO DAILY PRN PRN Reason: Constipation Bupivacaine HCl (Sensorcaine-Mpf 0.25%) Confirm Administered Dose 30 ml .ROUTE .STK-MED ONE Stop: 07/18/19 07:12 Last Admin: 07/18/19 09:43 Dose: 30 ml Cefazolin Sodium (Ancef) Confirm Administered Dose 2 gm .ROUTE .STK-MED ONE Stop: 07/18/19 07:12 Last Admin: 07/18/19 09:37 Dose: 2 gm Cefazolin Sodium (Ancef) Confirm Administered Dose 2 gm .ROUTE .STK-MED ONE Stop: 07/18/19 08:32 Cholecalciferol (Vitamin D3) 5,000 unit PO DAILY [facility] Last Admin: 07/19/19 08:54 Dose: 5,000 unit Citalopram Hydrobromide (Celexa) 20 mg PO DAILY [facility] Last Admin: 07/19/19 08:54 Dose: 20 mg Clonidine HCl (Catapres) 0.1 mg PO BID [facility] Last Admin: 07/19/19 08:49 Dose: 0.1 mg Morphine Sulfate 8 mg/Epinephrine HCl 0.3 mg/Cefuroxime Sodium 750 mg/Ketorolac Tromethamine 30 mg/Sodium Chloride 27.9 ml 0 mg .XX ONETIME ONE Stop: 07/18/19 08:31 Last Admin: 07/18/19 14:53 Dose: Not Given Cyclobenzaprine HCl (Flexeril) 10 mg PO BID PRN PRN Reason: Spasms Last Admin: 07/19/19 11:49 Dose: 10 mg Docusate Sodium (Colace) 100 mg PO BID [facility] Last Admin: 07/19/19 08:54 Dose: 100 mg Duloxetine HCl (Cymbalta) 30 mg PO BEDTIME TAWANNA Last Admin: 07/18/19 20:33 Dose: 30 mg Duloxetine HCl (Cymbalta) 60 mg PO BEDTIME [facility] Last Admin: 07/18/19 20:33 Dose: 60 mg Ephedrine Sulfate (Ephedrine In Ns) Confirm Administered Dose 25 mg .ROUTE .STK- MED ONE Stop: 07/18/19 09:37 Epinephrine HCl (Adrenalin) Confirm Administered Dose 1 mg .ROUTE .STK-MED ONE Stop: 07/18/19 07:43 Famotidine (Pepcid) 20 mg PO Q12H [facility] Last Admin: 07/19/19 08:53 Dose: 20 mg Famotidine (Pepcid) 20 mg IVPUSH ONETIME ONE Stop: 07/18/19 07:55 Last Admin: 07/18/19 08:01 Dose: 20 mg Lactated Ringer's (Ringers, Lactated) 1,000 mls @ 125 mls/hr IV ASDIRECTED TAWANNA Stop: 07/18/19 23:00 Last Admin: 07/18/19 07:18 Dose: 125 mls/hr Cefazolin Sodium/Dextrose 2 gm (/ Premix) 50 mls @ 100 mls/hr IV Q8H [facility] Stop: 07/19/19 08:59 Last Admin: 07/19/19 09:51 Dose: 100 mls/hr Lidocaine HCl (Xylocaine-Mpf 1%) Confirm Administered Dose 4 mls @ as directed .ROUTE .STK-MED ONE Stop: 07/18/19 07:43 Lactated Ringer's (Ringers, Lactated) 1,000 mls @ 125 mls/hr IV ASDIRECTED [facility] Iodine (Iodine 2% Mild Tincture) Confirm Administered Dose 30 ml .ROUTE .STK- MED ONE Stop: 07/18/19 07:12 Last Admin: 07/18/19 09:35 Dose: 18 ml Ketorolac Tromethamine (Toradol) 15 mg IVPUSH Q6H PRN PRN Reason: Pain Last Admin: 07/19/19 07:55 Dose: 15 mg Lamotrigine (Lamotrigine) 100 mg PO DAILY [facility] Last Admin: 07/19/19 08:51 Dose: 100 mg Lamotrigine (Lamotrigine) 50 mg PO DAILY [facility] Last Admin: 07/19/19 08:52 Dose: 50 mg Lidocaine/Sodium Bicarbonate (Buffered Lidocaine 1% In Ns 8.4%) 0.25 ml IDERM ONETIME PRN PRN Reason: Prior to IV Start Stop: 07/18/19 18:00 Last Admin: 07/18/19 07:18 Dose: 0.25 ml Lidocaine/Sodium Bicarbonate (Buffered Lidocaine 1% In Ns 8.4%) 0.25 ml IDERM ONETIME PRN PRN Reason: Prior to IV Start Stop: 07/18/19 18:00 Magnesium Hydroxide (Milk Of Magnesia) 30 ml PO BID PRN PRN Reason: Constipation Metoprolol Succinate (Toprol Xl) 25 mg PO DAILY [facility] Last Admin: 07/19/19 08:54 Dose: 25 mg Morphine Sulfate (Morphine) 2 mg IVPUSH Q2H PRN PRN Reason: Breakthrough Pain Morphine Sulfate (Duramorph Pf) Confirm Administered Dose 10 mg .ROUTE .STK-MED ONE Stop: 07/18/19 07:44 Naloxone HCl (Narcan) 0.1 mg IVPUSH Q5M PRN PRN Reason: Oversedation Non-Formulary Medication (Fluticasone Propionate) 1 dose INH BID PRN PRN Reason: Shortness of Breath Ondansetron HCl (Zofran) 4 mg IVPUSH Q6H PRN PRN Reason: Nausea/Vomiting Oxycodone HCl (Oxycontin) 10 mg PO ONETIME [facility] Stop: 07/18/19 16:00 Last Admin: 07/18/19 07:09 Dose: 10 mg Oxycodone/Acetaminophen (Percocet 325-5 Mg) 1 - 2 tab PO Q4H PRN PRN Reason: Pain Last Admin: 07/19/19 08:46 Dose: 2 tab Pantoprazole Sodium (Protonix) 40 mg PO DAILY@0700 [facility] Last Admin: 07/19/19 06:08 Dose: 40 mg Pregabalin (Lyrica) 50 mg PO ONETIME [facility] Stop: 07/18/19 16:00 Last Admin: 07/18/19 07:09 Dose: 50 mg Propofol (Diprivan 20 Ml) Confirm Administered Dose 400 mg .ROUTE .STK-MED ONE Stop: 07/18/19 07:44 Propofol (Diprivan 20 Ml) Confirm Administered Dose 200 mg .ROUTE .STK-MED ONE Stop: 07/18/19 09:20 Rivaroxaban (Xarelto) 10 mg PO DAILY [facility] Last Admin: 07/19/19 08:49 Dose: 10 mg Ropivacaine (Naropin 0.5%) Confirm Administered Dose 30 ml .ROUTE .STK-MED ONE Stop: 07/18/19 07:43 Senna (Senna) 8.6 mg PO BID PRN PRN Reason: Constipation Sodium Chloride (Saline Flush) 10 ml FLUSH ASDIRECTED PRN PRN Reason: Keep Vein Open Stop: 07/18/19 18:00 Sodium Chloride (Saline Flush) 10 ml FLUSH ASDIRECTED PRN PRN Reason: Keep Vein Open Topiramate (Topamax) 50 mg PO BID [facility] Last Admin: 07/19/19 08:50 Dose: 50 mg Tranexamic Acid (Cyklokapron) Confirm Administered Dose 1,000 mg .ROUTE .STK- MED ONE Stop: 07/18/19 07:12 Last Admin: 07/18/19 09:44 Dose: 1,000 mg Triamcinolone Acetonide (Triamcinolone Acetonide 0.1% Crm) 0 gm TOP BID PRN PRN Reason: eczema BILATERALLY TO HANDS Vancomycin HCl (Vancomycin) Confirm Administered Dose 1 gm .ROUTE .STK-MED ONE Stop: 07/18/19 07:12 Last Admin: 07/18/19 09:45 Dose: 1 gm
--- NOTE | 2019-07-22 14:02 | PCM.OPNOTE ---
- General Post-Op/Procedure Note Date of Surgery/Procedure: 07/18/19 Operative Procedure(s): left total knee arthroplasty Pre Op Diagnosis: left knee osteoarthrosis Post-Op Diagnosis: Same Anesthesia Technique: Local, MAC, Spinal Primary Surgeon: Lucas Fuentes Anesthesia Provider: Romeo Eden Narrow Gauge Operator: Conchita Tolentino Narrow Gauge Operator: Karo Moncada EBRadha in mLs: 350 Complications: None Condition: Good Free Text/Narrative:: / 9mm 35x10
--- NOTE | 2019-07-22 14:28 | OR ---
DATE OF OPERATION: 07/18/2019 SURGEON: Lucas Fuentes MD OPERATION PERFORMED: Left total knee arthroplasty. PREOPERATIVE DIAGNOSIS: Left knee osteoarthrosis. POSTOPERATIVE DIAGNOSIS: Left knee osteoarthrosis. ANESTHESIA: Local MAC with spinal. ANESTHESIA PROVIDER: Romeo Eden. ASSISTANTS: Conchita Tolentino PA-C and Karo Moncada LPN ESTIMATED BLOOD LOSS: 350 mL. COMPLICATIONS: None. CONDITION: Stable. IMPLANTS: 1. Merrifield size 5 press-fit CR femur. 2. Charley size 5 press-fit Dudley tibial base plate. 3. Charley size 5, 9-mm CS polyethylene insert. 4. Merrifield size 35 x 10 mm press-fit asymmetric patella. DESCRIPTION OF PROCEDURE: The patient was identified in the preop holding area. Proper site was marked and identified by the surgeon. The patient was taken back to the operating theater. After adequate anesthesia, the patient's left lower extremity had a nonsterile tourniquet applied and it was sterilely prepped and draped in the usual sterile fashion. OR time-out was performed. The patient received 2 g IV Ancef. At this time, the left lower extremity was exsanguinated. Tourniquet was insufflated to 300 mmHg. Standard medial parapatellar incision was made. Medial parapatellar arthrotomy was created. Deep fibers of the MCL were raised and anterior fat pad was resected. At this time, attention was turned to the patella. Patella measured 24, it was resected to a 14 for a 35 x 10 mm patella. Drill holes were then drilled and found to be in adequate position. The drill was then drilled in the distal femur and the intramedullary distal femoral cutting guide was then placed. 8 mm was resected off the distal femur and was found to be an adequate resection. Sizing guide was placed. It was found to be a size 5 press-fit CR femur that was shown on the implant record at the beginning of this dictation. The drill holes were drilled for the epicondylar axis using Whitesides line and epicondyles as reference. At this time, the 4-in- 1 cutting block was placed. An anterior posterior and anterior and posterior chamfer cuts were then completed. Attention was turned to the tibia. The posterior medial lateral retractors were placed. The extramedullary tibial guide was placed. It was placed in the old footprint of the ACL. It was aligned with the center of the ankle and 0 degrees of slope, 9 mm was then resected off the unaffected side. There was found to be an acceptable reduction. At this time, posterior osteophytes were removed along with medial and lateral meniscus. A trial implant was placed with a correct sized tibia that was mentioned at the beginning of the dictation. A Merrifield size 5, 9-mm CS polyethylene insert was then placed. The patient's knee was brought through range of motion. The patella was tracking centrally and was stable to varus and valgus stress. Alignment was found to be roughly at 0 degrees. The tibia was stamped and drilled in proper rotation. The universal tibial base plate was impacted in place. Next, the Merrifield size 5 press-fit CR femur impacted into place and the Merrifield size 5, 9-mm CS polyethylene insert was placed. The patient's knee was brought into full extension. The patella was then press-fit in place at this time. Tourniquet was deflated. One liter dilute Betadine solution was irrigated through the knee along with 3 L of pulse lavage irrigation with Ancef. Periarticular injection was then completed. The patient's knee was brought through a range of motion. Once the cement had time to set up and it was found to be stable to varus valgus stress, the patella was tracking centrally with full range of motion. At this time, a #2 barbed suture was used for closure of the medial parapatellar arthrotomy. Topical tranexamic acid was placed. 2-0 Vicryl was used subcutaneously, Prineo was used for the skin. The patient tolerated the procedure well and was sent to the PACU in stable condition. MMODAL /[id number]
== END 2019-07-19 11:57 | disposition home or self-care (01) | DRG 470 ==
LOC: JD.SDS 06:33 → JD.MS 06:33 → JD.SDS 06:34
PROVIDERS: ADMIT Orthopaedic Surgery; ATTEND Orthopaedic Surgery
PROC: 0SRD0JA Replacement of Left Knee Joint with Synthetic Substitute, Uncemented, Open Approach (ICD-10-PCS; principal; 2019-07-18)
DX: M17.12 Unilateral primary osteoarthritis, left knee (principal); D69.3 Immune thrombocytopenic purpura; F32.9 Major depressive disorder, single episode, unspecified; F41.9 Anxiety disorder, unspecified; K21.9 Gastro-esophageal reflux disease without esophagitis; G47.00 Insomnia, unspecified; G43.909 Migraine, unspecified, not intractable, without status migrainosus; F17.210 Nicotine dependence, cigarettes, uncomplicated; J45.909 Unspecified asthma, uncomplicated; I10 Essential (primary) hypertension; E78.5 Hyperlipidemia, unspecified; J44.9 Chronic obstructive pulmonary disease, unspecified; R32 Unspecified urinary incontinence; R45.1 Restlessness and agitation; G62.9 Polyneuropathy, unspecified; E66.9 Obesity, unspecified; G89.29 Other chronic pain; M54.9 Dorsalgia, unspecified; M54.2 Cervicalgia; K52.9 Noninfective gastroenteritis and colitis, unspecified; F43.10 Post-traumatic stress disorder, unspecified; E55.9 Vitamin D deficiency, unspecified; E53.8 Deficiency of other specified B group vitamins; Z96.651 Presence of right artificial knee joint; Z96.611 Presence of right artificial shoulder joint; Z96.612 Presence of left artificial shoulder joint; M75.21 Bicipital tendinitis, right shoulder; D64.9 Anemia, unspecified; Z79.899 Other long term (current) drug therapy; Z88.0 Allergy status to penicillin; Z88.1 Allergy status to other antibiotic agents; Z91.048 Other nonmedicinal substance allergy status; Z88.2 Allergy status to sulfonamides; Z88.8 Allergy status to other drugs, medicaments and biological substances; Z86.718 Personal history of other venous thrombosis and embolism; Z90.710 Acquired absence of both cervix and uterus; Z79.82 Long term (current) use of aspirin; Z87.440 Personal history of urinary (tract) infections; Z79.01 Long term (current) use of anticoagulants; Z98.51 Tubal ligation status; Z68.39 Body mass index [BMI] 39.0-39.9, adult
CPT/HCPCS: 01402; 36415; 73560-26-LT; 73560-LT; 80053; 81025; 85027; 87641; 94762; 97110-GP; 97116-GP; 97161-GP; 97165-GO; 97535-GO; A9270-GY; C1776; J0171; J0690; J0697; J1885; J2001; J2270; J2704; J2795; J3370; J3490; J7050; J7120

== ENCOUNTER 2021-11-18 05:45 | Day surgery (SDC) | payer BC ==
[~2021-11-18 05:45] MED LIST changes: -Acetaminophen 325 MG Tab PO SCH; -Pregabalin 25 MG Cap PO SCH; +Sodium Chloride 0.9% 10 ML Syringe FLUSH SCH; -oxyCODONE ER 10 MG TAB.ER PO SCH
[2021-11-18] MEDS ORDERED: Acetaminophen 325 MG Tab PO SCH (06:00)
[2021-11-18] MEDS ORDERED: oxyCODONE ER 10 MG TAB.ER PO SCH (06:00)
[2021-11-18] MEDS ORDERED: Pregabalin 25 MG Cap PO SCH (06:00)
[2021-11-18] MEDS ORDERED: Vancomycin 2 GM in Sodium Chloride 0.9% 500 ML IV ONE (06:00)
[2021-11-18] MEDS ORDERED: Vancomycin 1 GM SDV ONE (06:25)
[2021-11-18] MEDS ORDERED: Propofol 200 MG/20 ML SDV ONE (06:31)
[2021-11-18] MEDS ORDERED: Lactated Ringers 1,000 ML ONE (06:31)
[2021-11-18] MEDS ORDERED: Midazolam 1 MG/ML 2 ML SDV ONE (06:31)
[2021-11-18] MEDS ORDERED: Rocuronium 50 MG/5 ML Vial ONE (06:31)
[2021-11-18] MEDS ORDERED: fentaNYL 100 MCG/2 ML SDV ONE (06:31)
[2021-11-18] MEDS ORDERED: Lidocaine 1% 4 ML ONE (06:33)
[2021-11-18] MEDS ORDERED: EPINEPHrine 1 MG/ML SDV ONE (06:35)
[2021-11-18] MEDS ORDERED: Ropivacaine 0.5% 5 MG/ML 30 ML SDV ONE (06:35)
[2021-11-18] MEDS ORDERED: Ondansetron 4 MG/2 ML SDV ONE (07:04)
[2021-11-18] MEDS ORDERED: Dexamethasone 4 MG/ML 5 ML MDV ONE (07:04)
[2021-11-18] MEDS ORDERED: HYDROmorphone 0.5 MG/0.5 ML Syringe IVPUSH PRN (08:04)
[2021-11-18] MEDS ORDERED: fentaNYL 100 MCG/2 ML SDV IVPUSH PRN (08:04)
[2021-11-18] MEDS ORDERED: Ondansetron 4 MG/2 ML SDV IVPUSH PRN (08:04)
[2021-11-18] MEDS ORDERED: oxyCODONE 5 MG Tab PO ONE (09:20)
[2021-11-18 10:55] VITALS: BP 138/74; PULSE 74
== END 2021-11-18 12:15 | disposition home or self-care (01) ==
LOC: JD.SDS 05:45 → EDSTATUS 11:15 → JD.SDS 12:15
PROVIDERS: ATTEND Orthopaedic Surgery
DX: M19.011 Primary osteoarthritis, right shoulder (principal); E55.9 Vitamin D deficiency, unspecified; F17.210 Nicotine dependence, cigarettes, uncomplicated; J44.9 Chronic obstructive pulmonary disease, unspecified; Z88.8 Allergy status to other drugs, medicaments and biological substances; Z88.2 Allergy status to sulfonamides; Z88.0 Allergy status to penicillin; Z79.82 Long term (current) use of aspirin; Z79.899 Other long term (current) drug therapy; Z98.890 Other specified postprocedural states
CPT/HCPCS: 23472; 73020; 76000; 97161; A9270; C1713; C1769; C1776; J0171; J1100; J2250; J2405; J2704; J2710; J2795; J3010; J3370; J7040; J7120; 01638; 64415; 76942

== ENCOUNTER 2021-11-30 12:55 | Emergency (ER) | payer BC ==
[2021-11-30 13:11] VITALS: BP 120/65; PULSE 81
[2021-11-30] MEDS ORDERED: Rivaroxaban 15 MG Tab PO ONE (14:57)
== END 2021-11-30 15:24 | disposition home or self-care (01) ==
LOC: JD.ED 12:55
DX: I82.402 Acute embolism and thrombosis of unspecified deep veins of left lower extremity (principal); I10 Essential (primary) hypertension; J44.9 Chronic obstructive pulmonary disease, unspecified; K21.9 Gastro-esophageal reflux disease without esophagitis; M19.90 Unspecified osteoarthritis, unspecified site; E66.9 Obesity, unspecified; Z68.41 Body mass index [BMI] 40.0-44.9, adult; Z91.048 Other nonmedicinal substance allergy status; Z91.011 Allergy to milk products; Z88.0 Allergy status to penicillin; Z88.1 Allergy status to other antibiotic agents; Z88.2 Allergy status to sulfonamides; Z88.8 Allergy status to other drugs, medicaments and biological substances; Z79.82 Long term (current) use of aspirin; Z79.01 Long term (current) use of anticoagulants; Z79.899 Other long term (current) drug therapy
CPT/HCPCS: 36415; 80053; 85025; 85610; 93971; 99284; A9270

== ENCOUNTER 2021-12-02 15:58 | Emergency (ER) | payer BC ==
[2021-12-02 16:03] VITALS: BP 120/67; PULSE 80
[2021-12-02] MEDS ORDERED: Heparin Sodium 5,000 Units/ML Vial IVPUSH ONE (16:50)
[2021-12-02] MEDS ORDERED: Morphine 4 MG/ML Syringe IVPUSH ONE (16:55)
[2021-12-02] MEDS ORDERED: Heparin Sodium/D5W 25,000 UNITS/500 ML BAG IV SCH (17:00)
[2021-12-02] MEDS ORDERED: Heparin Sodium 5,000 Units/ML Vial ONE (17:05)
[2021-12-02] MEDS ORDERED: Ondansetron 4 MG/2 ML SDV IVPUSH ONE (17:13)
== END 2021-12-02 19:11 ==
LOC: JD.ED 15:58
DX: I82.4Z2 Acute embolism and thrombosis of unspecified deep veins of left distal lower extremity (principal); I10 Essential (primary) hypertension; J44.9 Chronic obstructive pulmonary disease, unspecified; K21.9 Gastro-esophageal reflux disease without esophagitis; E66.9 Obesity, unspecified; Z68.30 Body mass index [BMI] 30.0-30.9, adult; Z88.0 Allergy status to penicillin; Z88.1 Allergy status to other antibiotic agents; Z91.011 Allergy to milk products; Z88.2 Allergy status to sulfonamides; Z91.048 Other nonmedicinal substance allergy status; Z79.899 Other long term (current) drug therapy; Z79.01 Long term (current) use of anticoagulants; Z79.82 Long term (current) use of aspirin; Z20.822 Contact with and (suspected) exposure to COVID-19
CPT/HCPCS: 36415; 85730; 87635; 96365; 96366; 96375; 99285; J1644; J2270; J2405; 99283; U0002

== ENCOUNTER 2022-10-02 06:38 | Day surgery (SDC) | payer BC, MEDICAID ==
[2022-10-02] MEDS ORDERED: Propofol 200 MG/20 ML SDV ONE ×2 (07:19→10:33)
[2022-10-02] MEDS ORDERED: Midazolam 1 MG/ML 2 ML SDV ONE (07:20)
[2022-10-02] MEDS ORDERED: Lidocaine 1% 4 ML ONE ×2 (07:45→10:34)
[2022-10-02 13:53] VITALS: BP 122/74; PULSE 70
== END 2022-10-02 12:30 | disposition home or self-care (01) ==
LOC: JD.SDS 06:38
PROVIDERS: ATTEND Specialist
DX: K62.5 Hemorrhage of anus and rectum (principal); F31.9 Bipolar disorder, unspecified; K21.9 Gastro-esophageal reflux disease without esophagitis; I82.409 Acute embolism and thrombosis of unspecified deep veins of unspecified lower extremity; I10 Essential (primary) hypertension; E66.9 Obesity, unspecified; E03.9 Hypothyroidism, unspecified; G43.909 Migraine, unspecified, not intractable, without status migrainosus; E55.9 Vitamin D deficiency, unspecified; F17.210 Nicotine dependence, cigarettes, uncomplicated; J45.909 Unspecified asthma, uncomplicated; Z79.899 Other long term (current) drug therapy; Z86.718 Personal history of other venous thrombosis and embolism; Z79.890 Hormone replacement therapy; Z88.0 Allergy status to penicillin; Z88.2 Allergy status to sulfonamides; Z88.5 Allergy status to narcotic agent; Z98.890 Other specified postprocedural states; Z68.41 Body mass index [BMI] 40.0-44.9, adult
CPT/HCPCS: 45378; J2250; J2704; J7120; J3490

== ENCOUNTER 2023-01-04 18:15 | Emergency (ER) | payer BC, MEDICAID ==
[2023-01-04 18:35] VITALS: BP 160/107; PULSE 89
== END 2023-01-04 21:57 | disposition home or self-care (01) ==
LOC: JD.ED 18:15
DX: M79.89 Other specified soft tissue disorders (principal); E66.9 Obesity, unspecified; J45.909 Unspecified asthma, uncomplicated; Z79.01 Long term (current) use of anticoagulants; Z79.899 Other long term (current) drug therapy; Z88.1 Allergy status to other antibiotic agents; Z88.0 Allergy status to penicillin; Z88.2 Allergy status to sulfonamides; Z88.8 Allergy status to other drugs, medicaments and biological substances; Z91.048 Other nonmedicinal substance allergy status
CPT/HCPCS: 93971-26-LT; 93971-LT; 99283; 99284

== ENCOUNTER 2023-01-15 18:05 | Emergency (ER) | payer MEDICAID ==
[2023-01-15] MEDS ORDERED: Sodium Chloride 0.9% 10 ML Syringe FLUSH PRN (18:59)
[2023-01-15 19:34] LABS: BASOPHILS ABSOLUTE AUTO 0.03 K/mm3 (0.01-0.08); BASOPHILS PERCENT AUTO 0.4 % (0.1-1.2); EOSINOPHILS ABSOLUTE AUTO 0.23 K/mm3 (0.04-0.36); EOSINOPHILS PERCENT AUTO 2.8 (0.7-5.8); HEMATOCRIT 42.7 % (34.1-44.9); HEMOGLOBIN 14.3 gm/dl (11.2-15.7); IMMATURE GRAN ABSOLUTE AUTO 0.03 K/mm3 (0.00-0.10); IMMATURE GRAN PERCENT AUTO 0.4 % (<=1.0); LYMPHOCYTES ABSOLUTE AUTO 2.04 K/mm3 (1.18-3.74); MEAN CORPUSCULAR HEMOGLOBIN 28.8 pg (25.6-32.2); MEAN CORPUSCULAR HGB CONC 33.5 g/dl (32.2-35.5); MEAN CORPUSCULAR VOLUME 86.1 fl (79.4-94.8); MEAN PLATELET VOLUME 8.8 fl (9.4-12.3); MONOCYTES ABSOLUTE AUTO 0.66 K/mm3 (0.24-0.36); MONOCYTES PERCENT AUTO 8.1 % (4.7-12.5); NEUTROPHILS ABSOLUTE AUTO 5.18 K/mm3 (1.56-6.13); NEUTROPHILS PERCENT AUTO 63.3 % (34.0-71.1); PLATELET COUNT,PLT 338 K/mm3 (182-369); RED BLOOD CELL COUNT 4.96 M/mm3 (3.98-5.22); WHITE BLOOD CELL COUNT,WBC 8.17 K/mm3 (3.98-10.04)
[2023-01-15 19:54] LABS: INR 0.94; PROTHROMBIN TIME 10.1 SECONDS (9.7-12.0)
[2023-01-15 19:55] LABS: PTT,PARTIAL THROMBOPLSTIN TIME 27.4 SECONDS (21.7-31.4)
[2023-01-15 20:16] LABS: A/G RATIO 0.9 (1-2); ALBUMIN 3.7 g/dl (3.4-5.0); BILIRUBIN TOTAL 0.3 mg/dL (0.2-1.0); CALCIUM 9.7 mg/dL (8.5-10.1); EST CRCL DRUG DOSING (CG) 67.14 mL/min
[2023-01-15 21:37] LABS: APPEARANCE,URINE CLEAR (Clear); BILIRUBIN,URINE NEGATIVE (Negative); COLOR,URINE DARK YELLOW (Yellow); GLUCOSE,URINE NEGATIVE (Negative); KETONES,URINE NEGATIVE (Negative); LEUKOCYTE ESTERASE,URINE NEGATIVE (Negative); NITRITE,URINE NEGATIVE (Negative); OCCULT BLOOD,URINE NEGATIVE (Negative); PH,URINE 5.5 (5.0-8.0); PROTEIN,URINE NEGATIVE (Negative); UROBILINOGEN,URINE 0.2 (0.2-1.0)
[2023-01-15 21:46] LABS: BARBITURATE SCREEN,URINE NEGATIVE (CUTOFF=200); BENZODIAZEPINES SCREEN,URINE NEGATIVE (CUTOFF=150); BUPRENORPHINE SCREEN,URINE NEGATIVE (CUTOFF=10); METHADONE SCREEN, URINE NEGATIVE (CUTOFF=200); METHAMPHETAMINES SCREEN, URINE PRESUMPTIVE POSITIVE (CUTOFF=500); OXYCODONE SCREEN,URINE NEGATIVE (CUT0FF=100); PROPOXYPHENE SCREEN,URINE NEGATIVE (CUTOFF=300); THC SCREEN,URINE 20 NG/ML NEGATIVE (CUTOFF=50)
[2023-01-15 21:48] LABS: AMPHETAMINES SCREEN, URINE PRESUMPTIVE POSITIVE (CUTOFF=500)
[2023-01-15 23:28] VITALS: BP 140/80; PULSE 70
== END 2023-01-15 23:10 | disposition home or self-care (01) ==
LOC: JD.ED 18:05
DX: R55 Syncope and collapse (principal); I10 Essential (primary) hypertension; J45.909 Unspecified asthma, uncomplicated; K21.9 Gastro-esophageal reflux disease without esophagitis; E03.9 Hypothyroidism, unspecified; E66.9 Obesity, unspecified; Z68.41 Body mass index [BMI] 40.0-44.9, adult; Z79.01 Long term (current) use of anticoagulants; Z86.16 Personal history of COVID-19; Z79.899 Other long term (current) drug therapy; Z88.0 Allergy status to penicillin; Z91.011 Allergy to milk products; Z88.1 Allergy status to other antibiotic agents; Z88.2 Allergy status to sulfonamides; Z88.8 Allergy status to other drugs, medicaments and biological substances; Z91.048 Other nonmedicinal substance allergy status
CPT/HCPCS: 36415; 70450; 80053; 80306; 80307; 81003; 83735; 84484; 85025; 85610; 85730; 93005; 99285; J3490; 93010; 99284

== ENCOUNTER 2023-04-02 15:44 | Emergency (ER) | payer MEDICAID ==
[2023-04-02] MEDS ORDERED: Sodium Chloride 0.9% 10 ML Syringe FLUSH PRN (15:57)
[2023-04-02 16:06] LABS: BASOPHILS ABSOLUTE AUTO 0.05 K/mm3 (0.01-0.08); BASOPHILS PERCENT AUTO 0.7 % (0.1-1.2); EOSINOPHILS ABSOLUTE AUTO 0.25 K/mm3 (0.04-0.36); EOSINOPHILS PERCENT AUTO 3.4 (0.7-5.8); HEMATOCRIT 36.9 % (34.1-44.9); HEMOGLOBIN 12.1 gm/dl (11.2-15.7); IMMATURE GRAN ABSOLUTE AUTO 0.02 K/mm3 (0.00-0.10); IMMATURE GRAN PERCENT AUTO 0.3 % (<=1.0); LYMPHOCYTES ABSOLUTE AUTO 1.87 K/mm3 (1.18-3.74); LYMPHOCYTES PERCENT AUTO 25.7 % (19.3-51.7); MEAN CORPUSCULAR HEMOGLOBIN 28.2 pg (25.6-32.2); MEAN CORPUSCULAR HGB CONC 32.8 g/dl (32.2-35.5); MONOCYTES ABSOLUTE AUTO 0.62 K/mm3 (0.24-0.36); MONOCYTES PERCENT AUTO 8.5 % (4.7-12.5); NEUTROPHILS ABSOLUTE AUTO 4.47 K/mm3 (1.56-6.13); NEUTROPHILS PERCENT AUTO 61.4 % (34.0-71.1); PLATELET COUNT,PLT 352 K/mm3 (182-369); RED BLOOD CELL COUNT 4.29 M/mm3 (3.98-5.22); WHITE BLOOD CELL COUNT,WBC 7.28 K/mm3 (3.98-10.04)
[2023-04-02 16:34] LABS: A/G RATIO 0.8 (1-2); ALBUMIN 3.5 g/dl (3.4-5.0); BILIRUBIN TOTAL 0.2 mg/dL (0.2-1.0); CALCIUM 9.1 mg/dL (8.5-10.1); EST CRCL DRUG DOSING (CG) 66.39 mL/min; PROTEIN TOTAL,TP 7.8 g/dl (6.4-8.2)
[2023-04-02] MEDS ORDERED: Ondansetron 4 MG/2 ML SDV IVPUSH ONE (16:36)
[2023-04-02 18:36] VITALS: BP 119/79; PULSE 84
== END 2023-04-02 18:00 | disposition home or self-care (01) ==
LOC: JD.ED 15:44
DX: S09.90XA Unspecified injury of head, initial encounter (principal); R55 Syncope and collapse; R11.0 Nausea; I10 Essential (primary) hypertension; K21.9 Gastro-esophageal reflux disease without esophagitis; E78.00 Pure hypercholesterolemia, unspecified; J45.909 Unspecified asthma, uncomplicated; E03.9 Hypothyroidism, unspecified; E66.9 Obesity, unspecified; Z68.42 Body mass index [BMI] 45.0-49.9, adult; Z86.16 Personal history of COVID-19; Z86.718 Personal history of other venous thrombosis and embolism; Z91.048 Other nonmedicinal substance allergy status; Z88.0 Allergy status to penicillin; Z79.01 Long term (current) use of anticoagulants; Z88.1 Allergy status to other antibiotic agents; Z88.2 Allergy status to sulfonamides; Z91.011 Allergy to milk products; Z88.8 Allergy status to other drugs, medicaments and biological substances; Z79.899 Other long term (current) drug therapy; W22.8XXA Striking against or struck by other objects, initial encounter
CPT/HCPCS: 36415; 70450; 72125; 80053; 84484; 85025; 93005; 96374; 99284; J2405; J3490

== ENCOUNTER 2024-02-03 12:33 | Emergency (ER) | payer MEDICAID ==
[2024-02-03 12:40] VITALS: PULSE 61
[2024-02-03 13:42] LABS: BASOPHILS ABSOLUTE AUTO 0.1 K/mm3 (0.0-0.2); BASOPHILS PERCENT AUTO 0.9 % (0.0-1.0); EOSINOPHILS ABSOLUTE AUTO 0.2 K/mm3 (0.0-0.4); EOSINOPHILS PERCENT AUTO 2.7 % (0.0-6.0); HEMATOCRIT 41.6 % (37.0-47.0); HEMOGLOBIN 13.9 gm/dl (12.0-16.0); IMMATURE GRAN ABSOLUTE AUTO 0.04 K/mm3 (0.00-0.05); IMMATURE GRAN PERCENT AUTO 0.6 % (0.0-0.4); LYMPHOCYTES ABSOLUTE AUTO 1.9 K/mm3 (1.0-4.8); MEAN CORPUSCULAR HEMOGLOBIN 30.4 pg (28.0-32.0); MEAN CORPUSCULAR HGB CONC 33.4 g/dl (32.0-36.0); MEAN PLATELET VOLUME 9.1 fl (9.4-12.3); MONOCYTES ABSOLUTE AUTO 0.7 K/mm3 (0.0-0.8); MONOCYTES PERCENT AUTO 9.9 % (0.0-8.0); NEUTROPHILS ABSOLUTE AUTO 3.7 K/mm3 (1.8-7.7); NEUTROPHILS PERCENT AUTO 56.9 % (41.0-71.0); PLATELET COUNT,PLT 285 K/mm3 (150-400); RED BLOOD CELL COUNT 4.57 M/mm3 (4.10-5.30); WHITE BLOOD CELL COUNT,WBC 6.56 K/mm3 (3.9-11.3)
[2024-02-03 14:18] LABS: A/G RATIO 0.8 (1-2); ALBUMIN 3.3 g/dl (3.4-5.0); ANION GAP 9.7 (5-15); BILIRUBIN TOTAL 0.3 mg/dL (0.2-1.0); EST CRCL DRUG DOSING (CG) 65.63 mL/min; POTASSIUM,K 4.7 mEq/L (3.5-5.1); PROTEIN TOTAL,TP 7.3 g/dl (6.4-8.2)
[2024-02-03 16:57] VITALS: BP 137/72
== END 2024-02-03 15:19 | disposition home or self-care (01) ==
LOC: JD.ED 12:33
DX: M54.2 Cervicalgia (principal); M54.6 Pain in thoracic spine; M54.50 Low back pain, unspecified; I10 Essential (primary) hypertension; E03.9 Hypothyroidism, unspecified; Z86.16 Personal history of COVID-19; Z79.01 Long term (current) use of anticoagulants; Z79.899 Other long term (current) drug therapy; Z88.2 Allergy status to sulfonamides; Z88.8 Allergy status to other drugs, medicaments and biological substances; Z88.0 Allergy status to penicillin; Z88.1 Allergy status to other antibiotic agents; Z91.011 Allergy to milk products; Z91.048 Other nonmedicinal substance allergy status; W19.XXXA Unspecified fall, initial encounter
CPT/HCPCS: 36415; 70450; 70450-26; 72125; 72125-26; 72128; 72128-26; 72131; 72131-26; 80053; 85025; 99284

== ENCOUNTER 2024-05-21 13:57 | Emergency (ER) | payer MEDICAID ==
[2024-05-21 14:23] LABS: BASOPHILS ABSOLUTE AUTO 0.1 K/mm3 (0.0-0.2); BASOPHILS PERCENT AUTO 0.9 % (0.0-1.0); EOSINOPHILS ABSOLUTE AUTO 0.2 K/mm3 (0.0-0.4); EOSINOPHILS PERCENT AUTO 2.7 % (0.0-6.0); HEMATOCRIT 40.7 % (37.0-47.0); HEMOGLOBIN 13.4 gm/dl (12.0-16.0); IMMATURE GRAN ABSOLUTE AUTO 0.04 K/mm3 (0.00-0.05); IMMATURE GRAN PERCENT AUTO 0.6 % (0.0-0.4); LYMPHOCYTES ABSOLUTE AUTO 2.1 K/mm3 (1.0-4.8); LYMPHOCYTES PERCENT AUTO 31.9 % (24.0-44.0); MEAN CORPUSCULAR HEMOGLOBIN 30.1 pg (28.0-32.0); MEAN CORPUSCULAR HGB CONC 32.9 g/dl (32.0-36.0); MEAN CORPUSCULAR VOLUME 91.5 fl (83.0-99.0); MEAN PLATELET VOLUME 9.2 fl (9.4-12.3); MONOCYTES ABSOLUTE AUTO 0.7 K/mm3 (0.0-0.8); MONOCYTES PERCENT AUTO 10.7 % (0.0-8.0); NEUTROPHILS ABSOLUTE AUTO 3.5 K/mm3 (1.8-7.7); NEUTROPHILS PERCENT AUTO 53.2 % (41.0-71.0); PLATELET COUNT,PLT 293 K/mm3 (150-400); RED BLOOD CELL COUNT 4.45 M/mm3 (4.10-5.30); WHITE BLOOD CELL COUNT,WBC 6.56 K/mm3 (3.9-11.3)
[2024-05-21 14:47] LABS: ALBUMIN 3.6 g/dl (3.4-5.0); ANION GAP 11.4 (5-15); BILIRUBIN TOTAL 0.2 mg/dL (0.2-1.0); BUN/CREATININE RATIO 8.9 (14-18); CALCIUM 9.1 mg/dL (8.5-10.1); CREATININE 0.9 mg/dL (0.55-1.02); EST CRCL DRUG DOSING (CG) 70.3 mL/min; MAGNESIUM 2.2 mg/dL (1.8-2.4); POTASSIUM,K 4.4 mEq/L (3.5-5.1); PROTEIN TOTAL,TP 7.3 g/dl (6.4-8.2)
[2024-05-21] MEDS: Sodium Chloride 0.9% 500 ML IV ONE (15:23)
[2024-05-21] MEDS: Sodium Chloride 0.9% 10 ML Syringe FLUSH PRN (15:23)
[2024-05-21 16:05] LABS: CORONAVIRUS COVID-19 NAA NEGATIVE (NEGATIVE); INFLUENZA A NAA NEGATIVE (NEGATIVE); RESPIRATORY SYNCYTIAL VIR NAA NEGATIVE (NEGATIVE)
[2024-05-21 16:14] LABS: APPEARANCE,URINE CLEAR (Clear); BILIRUBIN,URINE NEGATIVE (Negative); COLOR,URINE YELLOW (Yellow); GLUCOSE,URINE NEGATIVE (Negative); KETONES,URINE NEGATIVE (Negative); LEUKOCYTE ESTERASE,URINE NEGATIVE (Negative); NITRITE,URINE NEGATIVE (Negative); OCCULT BLOOD,URINE NEGATIVE (Negative); PROTEIN,URINE NEGATIVE (Negative); UROBILINOGEN,URINE 0.2 (0.2-1.0)
[2024-05-21 19:22] VITALS: BP 120/74; PULSE 69
== END 2024-05-21 18:20 | disposition home or self-care (01) ==
LOC: JD.ED 13:57
DX: R55 Syncope and collapse (principal); M25.511 Pain in right shoulder; M25.561 Pain in right knee; I10 Essential (primary) hypertension; E78.00 Pure hypercholesterolemia, unspecified; J45.909 Unspecified asthma, uncomplicated; K21.9 Gastro-esophageal reflux disease without esophagitis; E03.9 Hypothyroidism, unspecified; E66.9 Obesity, unspecified; Z86.16 Personal history of COVID-19; Z79.01 Long term (current) use of anticoagulants; Z79.899 Other long term (current) drug therapy; Z88.2 Allergy status to sulfonamides; Z88.8 Allergy status to other drugs, medicaments and biological substances; Z88.0 Allergy status to penicillin; Z91.011 Allergy to milk products; Z91.048 Other nonmedicinal substance allergy status; W19.XXXA Unspecified fall, initial encounter
CPT/HCPCS: 0241U; 36415; 70450; 71045; 72170; 73060; 73564; 80053; 81003; 83735; 84484; 85025; 93005; 96360; 99285; J3490; J7030; 93010; 99284

== ENCOUNTER 2024-05-28 16:36 | Inpatient (IN) | payer MEDICAID ==
[2024-05-28] MEDS ORDERED: Sodium Chloride 0.9% 10 ML Syringe FLUSH PRN (17:13)
[2024-05-28] MEDS: Sodium Chloride 0.9% 1,000 ML IV ONE (17:32)
[2024-05-28 17:53] LABS: BASOPHILS ABSOLUTE AUTO 0.1 K/mm3 (0.0-0.2); BASOPHILS PERCENT AUTO 0.5 % (0.0-1.0); EOSINOPHILS ABSOLUTE AUTO 0.2 K/mm3 (0.0-0.4); EOSINOPHILS PERCENT AUTO 1.8 % (0.0-6.0); HEMATOCRIT 44.1 % (37.0-47.0); HEMOGLOBIN 14.8 gm/dl (12.0-16.0); IMMATURE GRAN ABSOLUTE AUTO 0.04 K/mm3 (0.00-0.05); IMMATURE GRAN PERCENT AUTO 0.4 % (0.0-0.4); LYMPHOCYTES ABSOLUTE AUTO 2.6 K/mm3 (1.0-4.8); LYMPHOCYTES PERCENT AUTO 28.1 % (24.0-44.0); MEAN CORPUSCULAR HEMOGLOBIN 30.5 pg (28.0-32.0); MEAN CORPUSCULAR HGB CONC 33.6 g/dl (32.0-36.0); MEAN CORPUSCULAR VOLUME 90.9 fl (83.0-99.0); MEAN PLATELET VOLUME 9.2 fl (9.4-12.3); MONOCYTES ABSOLUTE AUTO 0.9 K/mm3 (0.0-0.8); MONOCYTES PERCENT AUTO 9.2 % (0.0-8.0); NEUTROPHILS ABSOLUTE AUTO 5.6 K/mm3 (1.8-7.7); PLATELET COUNT,PLT 284 K/mm3 (150-400); RED BLOOD CELL COUNT 4.85 M/mm3 (4.10-5.30); WHITE BLOOD CELL COUNT,WBC 9.33 K/mm3 (3.9-11.3)
[2024-05-28 18:18] LABS: A/G RATIO 0.9 (1-2); ALBUMIN 3.8 g/dl (3.4-5.0); ANION GAP 11.8 (5-15); BILIRUBIN TOTAL 0.4 mg/dL (0.2-1.0); CALCIUM 9.5 mg/dL (8.5-10.1); EST CRCL DRUG DOSING (CG) 63.27 mL/min; MAGNESIUM 2.1 mg/dL (1.8-2.4); POTASSIUM,K 3.8 mEq/L (3.5-5.1); PROTEIN TOTAL,TP 8.1 g/dl (6.4-8.2)
[2024-05-28] MEDS ORDERED: oxyCODONE 5 MG Tab PO PRN (19:29)
[2024-05-28] MEDS ORDERED: Acetaminophen 325 MG Tab PO PRN (19:29)
[2024-05-28] MEDS ORDERED: Sennosides/Docusate Sodium 50-8.6 MG Tab PO PRN (19:29)
[2024-05-28] MEDS ORDERED: Melatonin 3 MG Tab PO PRN (19:29)
[2024-05-28] MEDS ORDERED: LORazepam 1 MG Tab PO PRN (19:41)
[2024-05-28] MEDS ORDERED: Cyclobenzaprine 10 MG Tab PO PRN (19:51)
[2024-05-28] MEDS ORDERED: DIVALPROEX SODIUM 125 MG PO PRN (19:51)
[2024-05-28 22:39] LABS: APPEARANCE,URINE CLEAR (Clear); BILIRUBIN,URINE 1+ (Negative); COLOR,URINE DARK YELLOW (Yellow); GLUCOSE,URINE NEGATIVE (Negative); KETONES,URINE TRACE (Negative); LEUKOCYTE ESTERASE,URINE NEGATIVE (Negative); NITRITE,URINE NEGATIVE (Negative); OCCULT BLOOD,URINE NEGATIVE (Negative); PH,URINE 5.5 (5.0-8.0); PROTEIN,URINE TRACE (Negative)
[2024-05-28 22:50] LABS: BACTERIA,URINE MODERATE /hpf (FEW); MUCUS,URINE MANY /hpf (FEW); RBC,URINE 0-5 /hpf (0-5); WBC,URINE 0-5 /hpf (0-5)
[2024-05-28] MEDS: Ondansetron 4 MG/2 ML SDV IV PRN (23:41)
[2024-05-29] MEDS: DULoxetine 30 MG Cap PO SCH ×2 (00:06→10:07)
[2024-05-29] MEDS: busPIRone 15 MG Tab PO SCH (00:08)
[2024-05-29] MEDS: Topiramate 25 MG Tab PO SCH (00:08)
[2024-05-29] MEDS: Apixaban 5 MG Tab PO SCH (00:08)
[2024-05-29] MEDS: Prazosin 1 MG Cap PO SCH (00:09)
[2024-05-29] MEDS ORDERED: FLU (Flulaval Triv) 24-25(6MOS UP)/PF 45 MCG/0.5 ML Syringe IM ONE (01:30)
[2024-05-29] MEDS: Famotidine 20 MG Tab PO SCH (01:34)
[2024-05-29] MEDS ORDERED: LORazepam 1 MG Tab PO PRN (01:39)
[2024-05-29] MEDS: Acetaminophen/HYDROcodone 325-5 MG Tab PO PRN (05:35)
[2024-05-29 06:21] LABS: ANION GAP 14.9 (5-15); CALCIUM 8.7 mg/dL (8.5-10.1); EST CRCL DRUG DOSING (CG) 65.63 mL/min; PHOSPHORUS 4.5 mg/dL (2.6-4.7); POTASSIUM,K 3.9 mEq/L (3.5-5.1); TSH 4.238 uIU/mL (0.358-3.74)
[2024-05-29 06:51] LABS: T4 FREE 0.71 ng/dL (0.76-1.46)
[2024-05-29] MEDS ORDERED: CHOLECALCIFEROL 1250 MCG PO SCH (09:00)
[2024-05-29] MEDS ORDERED: CARIPRAZINE HCL 4.5 MG PO SCH ×2 (09:00→21:00)
[2024-05-29] MEDS: lamoTRIgine 100 MG Tab PO SCH (10:06)
[2024-05-29] MEDS: Levothyroxine 50 MCG Tab PO SCH (10:07)
[2024-05-29] MEDS: Metoprolol Succinate 25 MG Tab.ER PO SCH (10:07)
[2024-05-29] MEDS: DIVALPROEX SODIUM 125 MG PO SCH (13:58)
[2024-05-30] MEDS: Levothyroxine 75 MCG Tab PO SCH (06:06)
[2024-05-30] MEDS: DULoxetine 30 MG Cap PO SCH (09:51)
[2024-05-30] MEDS: Aspirin 81 MG Tab.EC PO SCH (09:51)
[2024-05-30] MEDS: Pantoprazole 40 MG Tab.CR PO SCH (09:51)
[2024-05-30] MEDS: Divalproex Sodium Delayed-Release 125 MG Cap.Sprink PO SCH (11:39)
[2024-05-30] MEDS: FLU (Flulaval Triv) 24-25(6MOS UP)/PF 45 MCG/0.5 ML Syringe IM ONE (11:51)
[2024-05-30 12:29] VITALS: BP 145/69; PULSE 69
[2024-05-31 16:47] LABS: VITAMIN D 1,25 46.8 pg/mL (19.9-79.3)
== END 2024-05-30 13:30 | disposition home or self-care (01) | DRG 312 ==
LOC: JD.ED 16:36 → JD.MS 19:29
PROVIDERS: ADMIT Student in an Organized Health Care Education/Training Program; ATTEND Student in an Organized Health Care Education/Training Program
DX: R55 Syncope and collapse (principal); Z68.41 Body mass index [BMI] 40.0-44.9, adult; J45.909 Unspecified asthma, uncomplicated; I10 Essential (primary) hypertension; E03.9 Hypothyroidism, unspecified; K21.9 Gastro-esophageal reflux disease without esophagitis; F41.9 Anxiety disorder, unspecified; F31.9 Bipolar disorder, unspecified; E78.00 Pure hypercholesterolemia, unspecified; K59.09 Other constipation; M19.90 Unspecified osteoarthritis, unspecified site; G43.909 Migraine, unspecified, not intractable, without status migrainosus; G62.9 Polyneuropathy, unspecified; G89.29 Other chronic pain; L30.9 Dermatitis, unspecified; E66.9 Obesity, unspecified; F43.10 Post-traumatic stress disorder, unspecified; F15.90 Other stimulant use, unspecified, uncomplicated; R00.1 Bradycardia, unspecified; Z88.0 Allergy status to penicillin; Z88.8 Allergy status to other drugs, medicaments and biological substances; Z88.2 Allergy status to sulfonamides; Z98.51 Tubal ligation status; Z79.01 Long term (current) use of anticoagulants; Z79.82 Long term (current) use of aspirin; Z79.899 Other long term (current) drug therapy; Z96.659 Presence of unspecified artificial knee joint; Z86.718 Personal history of other venous thrombosis and embolism; Z79.890 Hormone replacement therapy; Z23 Encounter for immunization
CPT/HCPCS: 36415; 71045; 71045-26; 80048; 80053; 81001; 82652; 83735; 84100; 84439; 84443; 84484; 85025; 90686; 93005; 93010; 93306; 94760; 94761; 96360; 99222; 99239; 99284; 99285-25; A9270-GY; G0008; J2405; J7030

== ENCOUNTER 2025-02-25 12:13 | Emergency (ER) | payer MEDICAID ==
[2025-02-25] MEDS: Ondansetron 4 MG Tab.DIS PO ONE (12:33)
[2025-02-25 18:20] VITALS: BP 135/73; PULSE 85
== END 2025-02-25 13:54 | disposition home or self-care (01) ==
LOC: JD.ED 12:13
DX: S16.1XXA Strain of muscle, fascia and tendon at neck level, initial encounter (principal); S00.83XA Contusion of other part of head, initial encounter; S00.03XA Contusion of scalp, initial encounter; M62.838 Other muscle spasm; I10 Essential (primary) hypertension; K21.9 Gastro-esophageal reflux disease without esophagitis; E03.9 Hypothyroidism, unspecified; E66.9 Obesity, unspecified; Z88.1 Allergy status to other antibiotic agents; Z91.048 Other nonmedicinal substance allergy status; Z88.0 Allergy status to penicillin; Z88.8 Allergy status to other drugs, medicaments and biological substances; Z88.2 Allergy status to sulfonamides; Z79.899 Other long term (current) drug therapy; Z79.01 Long term (current) use of anticoagulants; Z86.16 Personal history of COVID-19; Z68.42 Body mass index [BMI] 45.0-49.9, adult; W01.198A Fall on same level from slipping, tripping and stumbling with subsequent striking against other object, initial encounter
CPT/HCPCS: 70450; 70486; 72125; 99284; A9270